=== PATIENT | female | born 1950 | race Caucasian/White ===

== ENCOUNTER 2023-08-07 11:35 | Emergency (ER) | payer MEDICARE, SELFPAY ==
[2023-08-07] VITALS (12 sets, daily range): BP systolic 129–163; BP diastolic 83–105; PULSE 76–108; RESP 22; TEMP 36.9; O2SAT 93–98; BMI 27.0
--- NOTE | 2023-08-07 12:01 | CRLHL7_ITS ---
For Patients: As a result of the Cures Act, medical imaging exams and procedure reports are released immediately into your electronic medical record. You may view this report before your referring provider. If you have questions, please contact your health care provider. INDICATION: COUGH, WHEEZE TECHNIQUE: Chest 2 views COMPARISON: None FINDINGS: Lung volumes are increased. Mild thickening of the bronchial trin[place]. No infiltrate. Cardiac silhouette is upper limits of normal. No fracture. No pleural effusion. No pneumothorax. IMPRESSION: Bilateral bronchiolitis and air trapping. Dictated by Gordon Torres MD @ 08/07/2023 12:47:09 PM (Electronically Signed)
--- NOTE | 2023-08-07 12:06 | ED_ITS ---
HPI - SOB/Dyspnea General Date Seen: 08/07/23 Chief Complaint: Shortness of Breath/Dyspnea Stated Complaint: Short of breath Time Seen by Provider: 08/07/23 11:41 Source: patient and family Mode of arrival: ambulatory Limitations: no limitations History of Present Illness HPI Narrative: Patient is a 73-year-old female presents here for evaluation after 1st being at the clinic, she was found to be 87% on room air, she has had of sickness for approximately 1 week, of shortness of breath increased use of her inhalers and increasing cough. No greenish mucus, denies fevers or chills and she had a negative COVID test she did at home yesterday she describes history of COPD exacerbations of last 1 being in December of last year she is not on chronic oxygen, no history of any cardiac issues, no history of previous blood clots, Here today with her son. MD elicited complaint: shortness of breath and cough Pertinent past history: COPD Onset (ago): week(s) Timing: constant and progressively worsening Severity: moderate Exacerbating factors: lying flat, movement and talking Relieving factors: rest and bronchodilators Known history of: COPD Associated symptoms: denies other symptoms Treatment prior to arrival: oxygen Related Data Home oxygen amount: none Home Medications Medication Instructions Recorded Confirmed cholecalciferol (vitamin D3) 25 1,000 unit PO DAILY 08/07/23 08/07/23 mcg (1,000 unit) capsule hydroxychloroquine 200 mg tablet 200 mg PO DAILY 08/07/23 08/07/23 levothyroxine 88 mcg tablet 88 mcg PO QAM 08/07/23 08/07/23 methotrexate sodium 2.5 mg tablet 10 mg PO 2XW 08/07/23 08/07/23 nicotine 14 mg/24 hr daily 1 patch transdermal DAILY 08/07/23 08/07/23 transdermal patch (Nicoderm CQ) rosuvastatin 10 mg tablet 10 mg PO QPM 08/07/23 08/07/23 Previous Rx's Medication Instructions Recorded azithromycin 250 mg tablet See Rx Instructions PO .COMPLEX #6 08/07/23 (Zithromax Z-Rishi) tabs cefuroxime axetil 500 mg tablet 500 mg PO BID 10 days #20 tabs 08/07/23 ipratropium 0.5 mg-albuterol 3 mg 3 ml inhalation TID PRN #90 mL 08/07/23 (2.5 mg base)/3 mL nebulization soln prednisone 20 mg tablet 20 mg PO BID #10 tabs 08/07/23 Allergies Allergy/AdvReac Type Severity Reaction Status Date / Time dexamethasone [From Maxitrol] Allergy Mild red, Verified 08/07/23 11:55 puffy, itchy eyes lidocaine Allergy Mild Rash Verified 08/07/23 11:55 neomycin [From Maxitrol] Allergy Mild red, Verified 08/07/23 11:55 puffy, itchy eyes polymyxin B [From Maxitrol] Allergy Mild red, Verified 08/07/23 11:55 puffy, itchy eyes Sulfa (Sulfonamide Allergy Mild Hives Verified 08/07/23 11:55 Antibiotics) Review of Systems Status of ROS: Reports: 10 or more systems reviewed and unremarkable except as noted in History and below [facility] Social History Smoking Status: Current every day smoker What tobacco products do you use: cigarettes Smoking packs per day: 0.5 Smoking cigarettes per day: 10.0 Do you use any of these nicotine containing products: None How often do you have a drink containing alcohol: 2-3 times a week How many standard drinks containing alcohol do you have on a typical day: 3 or 4 How often do you have six or more drinks on one occasion: Weekly AUDIT-C Alcohol total score: 7 Non-prescribed substance use: denies use service: No Exam Narrative: Exam Narrative: Patient is seen and stabilization room 1, she is on 2 L at 97%, she is here with her son, she is speaking to me in full sentences, her pupils equal round reactive to light, there is no scleral icterus redness, oropharynx is normal, JVP is flat, carotid upstrokes are equal bilaterally there is no meningismus, cranial nerves 3-12 are normal. Her chest has notable wheezing throughout both expiration primarily, little bit of inspiration with occasional crackles in the bases right greater than left. There is no signs of respiratory distress I can see. Heart sounds are distant faint but S1-S2 was normal, there is no S3-S4 clicks murmurs or gallops, her abdomen is soft and obese, there is no guarding, no organomegaly, bowel sounds are normal, CV a tenderness is absent, there is no swelling of her legs bilaterally, her muscle bulk is normal, SLR is are negative, and no redness rashes noted. Neurologically intact in upper lower extremities moving them normally. Negative Homans sign, and normal muscle power. Const: Vital Signs, click to edit/add: Vital Signs - 24 hr 08/07/23 11:45 08/07/23 12:03 08/07/23 12:04 Temperature 98.5 F Pulse Rate 99 102 H Pulse Rate [Left P ulse Oximeter] 105 H Respiratory Rate 22 Blood Pressure 129/105 H Blood Pressure [Le ft Upper Arm] 157/103 H Pulse Oximetry 97 93 95 Oxygen Delivery Me thod Nasal Cannula Oxygen Flow Rate 08/07/23 12:28 08/07/23 12:36 08/07/23 12:37 Temperature Pulse Rate 97 108 H Pulse Rate [Left P ulse Oximeter] Respiratory Rate Blood Pressure 150/95 H Blood Pressure [Le ft Upper Arm] Pulse Oximetry 96 96 96 Oxygen Delivery Me thod Nasal Cannula Nasal Cannula Oxygen Flow Rate 1 1 08/07/23 13:00 08/07/23 13:02 08/07/23 13:03 Temperature Pulse Rate 82 76 82 Pulse Rate [Left P ulse Oximeter] Respiratory Rate Blood Pressure 163/94 H Blood Pressure [Le ft Upper Arm] Pulse Oximetry 97 96 95 Oxygen Delivery Me thod Nasal Cannula Nasal Cannula Room Air Oxygen Flow Rate 1 1 08/07/23 13:30 08/07/23 13:32 08/07/23 13:33 Temperature Pulse Rate 82 81 80 Pulse Rate [Left P ulse Oximeter] Respiratory Rate Blood Pressure 150/83 H Blood Pressure [Le ft Upper Arm] Pulse Oximetry 97 97 98 Oxygen Delivery Me thod Room Air Oxygen Flow Rate Documenting provider has reviewed patient's vital signs: yes Course Course ED Course: Discussed with the patient, of think this is a COPD exacerbation, her troponin is negative, she has a mildly elevated white count, in the setting of a negative D-dimer. Her chest x-ray did show no acute changes. Her oxygen saturations have maintained stable at 95% she responded very well to the DuoNeb. We will walker and see how she does, if she is able to do well with this then I think we can probably discharge her home. Vital Signs Vital signs: Initial Vital Signs Temperature 98.5 F 08/07/23 11:45 Temperature Source Temporal Artery Scan 08/07/23 11:45 Pulse Rate 105 H 08/07/23 11:45 Respiratory Rate 22 08/07/23 11:45 Blood Pressure 157/103 H 08/07/23 11:45 Blood Pressure Mean 121 H 08/07/23 11:45 Blood Pressure Position Sitting 08/07/23 11:45 Pulse Oximetry 97 08/07/23 11:45 Oxygen Delivery Method Nasal Cannula 08/07/23 11:45 Vital Signs Temperature 98.5 F 08/07/23 11:45 Pulse Rate 105 H 08/07/23 11:45 Respiratory Rate 22 08/07/23 11:45 Blood Pressure 157/103 H 08/07/23 11:45 Pulse Oximetry 97 08/07/23 11:45 Oxygen Delivery Method Nasal Cannula 08/07/23 11:45 Temperature 98.5 F 08/07/23 11:45 Pulse Rate 80 08/07/23 13:33 Respiratory Rate 22 08/07/23 11:45 Blood Pressure 150/83 H 08/07/23 13:32 Pulse Oximetry 98 08/07/23 13:33 Oxygen Delivery Method Room Air 08/07/23 13:33 Oxygen Flow Rate 1 08/07/23 13:02 MDM - SOB/Dyspnea MDM Narrative Medical decision making narrative: Life-threatening differential diagnosis includes occluded COPD exacerbation, pulmonary edema, acute coronary syndromes, pulmonary embolism, pneumonia, and pneumothorax. Other differential diagnosis considerations include asthma, bronchitis as well as other etiologies Differential Diagnosis Differential diagnosis: Likely acute exacerbation of chronic obstructive airways disease, congestive heart failure, asthma with exacerbation and pulmonary embolism Medical Records Attestation: I reviewed the patient's medical records. Lab Data Attestation: I reviewed the patient's lab results. Labs: Lab Results 08/07/23 08/07/23 08/07/23 Range/Units 11:55 12:02 12:12 WBC 13.32 H (4.50-11.00) K/uL RBC 4.53 (4.00-5.20) m/uL Hgb 15.1 (12.0-16.0) gm/dL Hct 44.7 (33.0-51.0) % MCV 99 (80-100) fL MCH 33 (26-34) pg MCHC 34 (32-36) gm/dL RDW Coeff of Kathya 15.8 H (11.5-15.5) % Plt Count 271 (140-440) K/uL Neut % (Auto) 80.2 H (42.0-72.0) % Lymph % (Auto) 11.1 L (20-44) % [place] % (Auto) 7.7 (0.0-11.0) % Eos % (Auto) 0.5 (0.0-7.0) % Baso % (Auto) 0.2 (0.0-3.0) % Neut # (Auto) 10.70 H (1.7-7.0) K/uL Lymph # (Auto) 1.50 (0.90-2.90) K/uL [place] # (Auto) 1.00 H (0.00-0.90) K/UL Eos # (Auto) 0.10 (0.00-0.50) K/uL Baso # (Auto) 0.00 (0.00-0.30) K/uL Abs Immat Gran (auto) 0.00 (0.00-0.30) K/uL Imm/Tot Granulo (auto) 0.3 % INR 0.95 (0.91-1.10) APTT 27 (23-33) Seconds D-Dimer Quant (PE/DVT) 0.47 (0.00-0.50) ug/ml Sodium 138 (135-149) mmol/L Potassium 4.2 (3.6-5.1) mmol/L Chloride 104 (96-114) mmol/L Carbon Dioxide 27 (20-32) mmol/L Anion Gap 7 (7-15) mEq/L BUN 9 (7-30) mg/dL Creatinine 0.6 (0.5-1.5) mg/dL Estimated Creat Clear 46.20 Estimated GFR 94 ml/min Glucose 91 (60-115) mg/dL Calcium 10.2 (8.4-10.6) mg/dL C-Reactive Protein 1.6 H (0.5-1.0) mg/dL NT-Pro-B Natriuret Pep 225 pg/mL SARS-CoV-2 (PCR) Negative SARS-CoV-2 (Negative) Influenza Type A (PCR) Negative PCR FLU A (Negative) Influenza Type B (PCR) Negative PCR FLU B (Negative) RSV (PCR) Negative PCR RSV (Negative) POC Troponin I 0.00 L (0.01-0.04) ng/ml Imaging Data Chest x-ray: Attestation: I have reviewed the pertinent imaging results. My impression: Negative chest x-ray no acute changes Radiologist's impression: Patient: ALISON SENDER Facility: [facility] Site . Site : 1950 Study: XRay Chest 2 VIEW-08/07/2023 12:36:05 PM Ordering Physician: Trinh Partida Final Report: INDICATION: COUGH, WHEEZE TECHNIQUE: Chest 2 views COMPARISON: None FINDINGS: Lung volumes are increased. Mild thickening of the bronchial [place]in[place]. No infiltrate. Cardiac silhouette is upper limits of normal. No fracture. No pleural effusion. No pneumothorax. IMPRESSION: Bilateral bronchiolitis and air trapping. Dictated by Gordon Torres MD @ 08/07/2023 12:47:09 PM (Electronic Signature) ECG Data Attestation: I personally reviewed and interpreted this ECG as follows: ECG interpretation date: 08/07/23 Prior ECG tracings: not available for review Interpretation: EKG shows occasional PVCs, no acute ST wave changes, ventricular rate 98 Discharge Plan Discharge Clinical Impression: Acute infective exacerbation of chronic obstructive airway disease Patient Disposition: Home w/ Parent or Adult Condition: Improved Instructions: COPD (Chronic Obstructive Pulmonary Disease) (DC), Chronic Bronchitis (DC), How to Use a Nebulizer (DC), Wheezing (ED) Additional Instructions: Discharge home, medications as directed. Increasing chest pain or shortness of breath then you should be re-evaluated either in the emergency room or with her primary care physician. I do think you need to be followed up in 3-5 days for recheck. Stop your hydroxyChloroquine while on the zithromax, and restart it 2 days after done. Activity Level: Light activity Prescriptions: New azithromycin [Zithromax Z-Rishi] 250 mg tablet See Rx Instructions .ROUTE .COMPLEX Qty: 6 0RF Rx Instructions: For 250 mg dose pack: take 500 mg today (day 1), then 250 mg for 4 days (days 2-5), please have her stop the hyrdoxychloroquine while on this. Restart 3 days after finishing prednisone 20 mg tablet 20 mg PO BID Qty: 10 0RF ipratropium-albuterol 0.5 mg-3 mg(2.5 mg base)/3 mL solution for nebulization 3 ml inhalation TID PRNQty: 90 2RF cefuroxime axetil 500 mg tablet 500 mg PO BID 10 Days Qty: 20 0RF No Action levothyroxine 88 mcg tablet 88 mcg PO QAM methotrexate sodium 2.5 mg tablet 10 mg PO 2XW hydroxychloroquine 200 mg tablet 200 mg PO DAILY rosuvastatin 10 mg tablet 10 mg PO QPM nicotine [Nicoderm CQ] 14 mg/24 hr patch 24 hour 1 patch transdermal DAILY cholecalciferol (vitamin D3) 25 mcg (1,000 unit) capsule 1,000 unit PO DAILY Follow Up/Referrals: Sandra Barragan DO [Primary Care Provider] - Stand Alone Forms: [facility] Info Instructions
--- OUTSIDE RECORDS SUMMARY | 2023-08-07 12:19 | XMS_ITS | Continuity of Care Document ---
Author Name Unknown Organization Z [facility] Address [address] [place] [address] Phone Care Team Providers Care Manager Hospice Name Role Phone Mihaela Ross MD Unavailable Unavailable Procedures Procedure Date Office/outpatient visit,est, low 2009 Office consultation, moderate 0 X-ray exam lwr spine, min 4 views Advance Directives Directive Yes / No Effective Date File Name No Information Encounters Encounter Description Practice Location Reason(s) For Visit Diagnoses Date Provider Providers Copied on Encounter Office/outpat ient visit,est, low [facility] [place], [address] [place] [address], [facility], tel:[phone] [employer] No Information Cody Chairez. [facility], [address] [place] [address] [address], [place], [place], [id number] , [place]. tel:[phone] Referring Provider: Nevaeh Mcmanus, [facility], [place], [address] . tel:[phone] Office consultation, moderate Z [facility] [place], [address] [place], [place] [address]ite [facility], [place], [address], [place] tel:[phone] [employer] No Information Cody Chairez. [facility], [address] [facility], [place], [place], [id number] , [place]. tel:[phone] Referring Provider: Nevaeh Mcmanus, [facility] [place] [address], [address] . tel:[phone] Family History Family Member Type Diagnosis Age At Onset No Information Payers Payer name Insurance type Covered democrat ID Mai yadav(s) [facility] [id number] Social History Type Description Quantity Date Captured Comments Sex Female Smoking Status No Information Vital Signs Date / Time: Height Weight BMI Pulse Rate Blood Pressure Temperature Respiratory Rate Body Surface Area Head Circumference Head Circ. Percentile Wt./Ricki. Percentile BMI percentile Pulse Ox Inhaled Ox 66.10 in 81.700 kg (180.20 lbs) 10:24 AM 66.30 in 83.100 kg (182.80 lbs) 29.3 4 kg/m eter (2) Chief Complaint And Reason For Visit No Information Reason For Referral Reason For Referral No Information History Of Present Illness Encounter Date Complaint History Of Prese nt Illness No Information Functional Status Date Functional Assessmen t No Information Instructions Date Instruction Additional Infor mation No Information Assessments Type Assessment Date No Information Patient Care Teams Name Effective Dates (start - stop) Status Members No Information
--- OUTSIDE RECORDS SUMMARY | 2023-08-07 12:20 | XMS_ITS | Continuity of Care Document ---
Author Name Unknown Organization Z [facility] Address [address] [place] [address] Phone Care Team Providers Care Customer Account Administrator Name Role Phone Mihaela Ross MD Unavailable Unavailable Procedures Procedure Date Office/outpatient visit,est, low 2009 Office consultation, moderate 0 X-ray exam lwr spine, min 4 views Advance Directives Directive Yes / No Effective Date File Name No Information Encounters Encounter Description Practice Location Reason(s) For Visit Diagnoses Date Provider Providers Copied on Encounter Office/outpat ient visit,est, low [facility] [place], [address] [place] [address], [facility], tel:[phone] [employer] No Information Cody Chairez. [facility], [address] [place] [address] [address], [place], [place], [id number] , [place]. tel:[phone] Referring Provider: Nevaeh Mcmanus, [facility] [address], [place], [address] . tel:[phone] Office consultation, moderate Z [facility], [address] [place], [place] [address]ite [facility], [place], [address], [place] tel:[phone] [employer] No Information Cody Chairez. [facility], [address] [facility], [place], [place], [id number] , [place]. tel:[phone] Referring Provider: Nevaeh Mcmanus, [facility] [place] [address], [address] . tel:[phone] Family History Family Member Type Diagnosis Age At Onset No Information Payers Payer name Insurance type Covered libertarian ID Mai yadav(s) [facility] [id number] Social History Type Description Quantity Date Captured [...]
[2023-08-07 12:31] LABS: Basophils Percent Auto 0.2 % (0.0-3.0); Eosinophils Percent Auto 0.5 % (0.0-7.0); Hematocrit 44.7 % (33.0-51.0); Hemoglobin* 15.1 gm/dL (12.0-16.0); Immature Granulocytes Pct Auto 0.3 %; Lymphocytes Percent Auto 11.1 % (20-44); Mean Corpuscular HGB Conc 34 gm/dL (32-36); Mean Corpuscular Hemoglobin 33 pg (26-34); Mean Corpuscular Volume 99 fL (80-100); Monocytes Percent Auto 7.7 % (0.0-11.0); Neutrophils Percent Auto 80.2 % (42.0-72.0); Platelet Count* 271 K/uL (140-440); RDW Coefficient of Variation % 15.8 % (11.5-15.5); Red Blood Count 4.53 m/uL (4.00-5.20); White Blood Count* 13.32 K/uL (4.50-11.00)
[2023-08-07 12:38] LABS: PCR FLU A Negative PCR FLU A (Negative); PCR FLU B Negative PCR FLU B (Negative); PCR RSV Negative PCR RSV (Negative)
[2023-08-07 12:44] LABS: Slide Review Reflex No
[2023-08-07] MEDS: 0.9 % SODIUM CHLORIDE 1000 ml 1,000 ML IV (12:45)
[2023-08-07 12:47] LABS: Chloride* 104 mmol/L (96-114)
[2023-08-07 12:48] LABS: Potassium* 4.2 mmol/L (3.6-5.1); Sodium* 138 mmol/L (135-149)
[2023-08-07 12:50] LABS: Creatinine* 0.6 mg/dL (0.5-1.5); Estimated Glomerular Filt Rate 94 ml/min
[2023-08-07 12:51] LABS: Anion Gap 7 mEq/L (7-15); Blood Urea Nitrogen* 9 mg/dL (7-30); Carbon Dioxide* 27 mmol/L (20-32); Glucose* 91 mg/dL (60-115); INR 0.95 (0.91-1.10); Partial Thromboplastin Time* 27 Seconds (23-33); Prothrombin Time 13.3 Seconds
[2023-08-07 12:52] LABS: Calcium* 10.2 mg/dL (8.4-10.6)
[2023-08-07 12:53] LABS: C Reactive Protein* 1.6 mg/dL (0.5-1.0)
[2023-08-07 12:54] LABS: D Dimer Quantitative* 0.47 ug/ml (0.00-0.50)
[2023-08-07 13:06] LABS: SARS PCR* Negative SARS-CoV-2 (Negative)
[2023-08-07 13:08] LABS: NT Pro B Type NatriureticPept* 225 pg/mL
[2023-08-07] MEDS: IPRAT-ALBUT 0.5-2.5 MG/3 ML NEB 1 NEB IH (13:14)
== END 2023-08-07 14:55 | disposition home or self-care (01) ==
PROVIDERS: Emergency Provider Family Medicine; PCP Family Medicine
DX: J44.1 Chronic obstructive pulmonary disease with (acute) exacerbation (principal)
CPT/HCPCS: 36415; 71046; 80048; 83880; 84484; 85025; 85379; 85610; 85730; 86140; 87631; 93005; 94640; 94761; 99284; 99285; J7030

== ENCOUNTER 2024-03-26 09:25 | Outpatient (CLI) | payer MEDICARE, SELFPAY ==
--- OUTSIDE RECORDS SUMMARY | 2024-03-26 09:29 | XMS_ITS | Clinical Summary ---
Author Name Unknown Organization [employer] [facility] Address [place], [place] [address] Care Team Providers Care Law Enforcement Director Name Role Phone Pérez Black OD Unavailable [phone] Ni Juarez MD Unavailable [phone] Sandra Barragan DO Primary Care Provider Allergies Active Allergy Reactions Criticality Noted Date Comments Varenicline Mental Status Change 08/11/2023 Dexamethasone Itching Low 08/07/2023 Lidocaine Rash 06/08/2010 Neomycin-Polymyxin B-Dexameth Itching,Other - Describe In Comment Field 04/02/2012 Red, puffy, itchy eye from drops. Unlisted Allergen (Include Detail In Comments) *Unknown 08/14/2019 Tegaderm Film - patient gets welts in the area of patch Sulfa (Sulfonamide Antibiotics) Hives 01/17/2019 Medications Medication Sig Dispensed Refills Start Date End Date Status cholecalciferol (VITAMIN D) 1,000 unit tablet Take 1 tablet by mouth once daily. 0 12/28/2015 Active amoxicillin (AMOXIL) 500 mg capsule Dental appointments 09/11/2019 Active albuterol (PROVENTIL) 0.083 % neb solutionIndications :COPD exacerbation (HC) Inhale 3 mL (2.5 mg) via a nebulizer every 6 hours if needed for Cough 1st choice. 180 mL 04/28/2022 Active aspirin (ECOTRIN) 81 mg enteric coated tabletIndications:V ertebral artery stenosis, symptomatic, without infarction, bilateral Take 1 Tablet (81 mg) by mouth once daily with a meal. 0 07/11/2022 Active erythromycin ophthalmic ointment 0.5% APPLY SPARINGLY TO BOTH EYES AT BEDTIME NEEDED 08/24/2022 Active methotrexate (RHEUMATREX) 2.5 mg tabletIndications:P ain in joint, multiple sites TAKE 4 TABLETS BY MOUTH ON MONDAY AND 4 TABLETS ON MONDAY 96 Tablet 4 02/02/2023 Active levothyroxine (SYNTHROID) 88 mcg tabletIndications:H ypothyroidism (acquired) Take 1 Tablet (88 mcg) by mouth before breakfast. 90 Tablet 4 03/29/2023 Active folic acid 1 mg tabletIndications:P ain in joint, multiple sites Take 1 Tablet (1 mg) by mouth once daily. 90 Tablet 4 03/29/2023 Active hydrOXYchloroQUINE (PLAQUENIL) 200 mg tabletIndications:P ain in joint, multiple sites Take 1 Tablet (200 mg) by mouth once daily. 90 Tablet 4 03/29/2023 Active rosuvastatin (CRESTOR) 10 mg tabletIndications:V ertebral artery stenosis, symptomatic, without infarction, bilateral Take 1 Tablet (10 mg) by mouth at bedtime. 90 Tablet 4 03/29/2023 Active betamethasone dipropionate 0.05% (DIPROSONE 0.05% OINTMENT) 0.05 % ointmentIndications :Bug bite, initial encounter Apply topically to affected area(s) two times daily. 45 g 06/15/2023 Active albuterol-ipratropi um (DUONEB) (2.5-0.5 mg) in 3 mL NEBULIZATION solutionIndications :COPD with chronic bronchitis (HC) Inhale 3 mL via a nebulizer three times daily. 1080 mL 08/11/2023 Active clonazePAM (KLONOPIN) 0.5 mg tabletIndications:R estless legs syndrome (RLS),Fibromyalgia TAKE 2 TABLETS BY MOUTH EVERY DAY AT BEDTIME 60 Tablet 5 10/04/2023 Active amLODIPine (NORVASC) 5 mg tabletIndications:H TN (hypertension) Take 1 Tablet (5 mg) by mouth once daily. 90 Tablet 2 12/27/2023 Active escitalopram oxalate (LEXAPRO) 20 mg tabletIndications:P ersistent postural-perceptual dizziness Take 1 Tablet (20 mg) by mouth every morning. 90 Tablet 3 2024 Active fluticasone furoate-vilanteroL (Breo Ellipta) 100-25 mcg/dose inhalerIndications: COPD with chronic bronchitis (HC) INHALE ONE PUFF BY MOUTH EVERY DAY 180 Each 02/19/2024 Active gabapentin (NEURONTIN) 300 mg capsuleIndications: Lumbar radiculopathy Take 1 Capsule (300 mg) by mouth at bedtime. 30 Capsule 2 03/13/2024 Active mupirocin (BACTROBAN OINTMENT) ointmentIndications :Impetigo Apply topically to affected area(s) three times daily. 15 g 03/18/2024 Active Active Problems Problem Noted Date Diagnosed Date Vertebral artery stenosis, s ymptomatic, without infarction, bilateral 07/11/2022 Hyperlipidemia LDL goal <70 07/11/2022 Pseudophakia, right eye 08/08/2016 Hyperopia of both eyes with astigmatism and pres byopia 08/08/2016 Nuclear senile cataract of left eye 03/31/2015 Controlled substance agreement signed 01/09/2014 Degenerative disc disease, lumbar 09/26/2010 Chronic low back pain 09/26/2010 Encounter for long-term (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 other m edications 02/12/2010 Nummular eczema 03/24/2009 Thyroid nodule 12/19/2008 seronegative polyarthralgia/ mixed connective tissue disorder 09/30/2008 Overview: Previously diagnosis with lupus, At [place] December 2007 changed diagnosis Fibromyalgia 07/22/2008 Unspecified essential hypertension 06/28/2007 Tobacco use disorder 06/28/2007 Restless legs syndrome (RLS) 03/01/2007 Benign neoplasm of colon 03/01/2007 Overview: Colonoscopy 04/2019 polyps, repeat in 5 years Resolved Problems Problem Noted Date Diagnosed Date Resolved Date 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 09/24/2012 01/02/2013 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 04/07/2009 03/07/2018 Fibromyalgia 08/04/2008 08/18/2008 Lupus erythematosus 03/01/2007 09/30/20 08 Overview: 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 Presbyopia 05/31/2006 08/08/2016 Myopia 05/31/2006 02/17/2012 Encounters Date Type Department Care Team Description 03/18/2024 3:30 PM CDT Office Visit [facility] [address] [place] [address] Sandra Barragan DO Suture Removal (remove sutures and look at lip) 03/18/2024 Travel 03/13/2024 1:20 PM CDT Office Visit [facility] [address] [facility] [place] [address] Claude Méndez MD Musculoskeletal Problem (Lower middle of the back pain started a long time ago. just flared up in December ) 03/13/2024 Travel 03/07/2024 11:10 AM CDT Office Visit [address] [place] [phone] Mary Porter PA Mouth/Lip Problem; Fall (fall at 8 PM in bathroom) 03/07/2024 Travel 02/19/2024 [facility]ill [place] [address] [facility] [place] [address] Sandra Barragan DO Refill Request (Breo Ellipta) 02/10/2024 Orders Only [facility] [address] [place] [address] Sandra Barragan DO <No scans attached> 02/08/2024 2:00 PM CDT Ancillary Procedure [facility] [place] [address] 02/08/2024 Travel 2024 11:05 AM CIGARETTE CATCHER Office Visit [facility] [address] [place] [address] Sandra Barragan DO Back Pain (physical therapist suggested to see pcp); Dizziness (PPD) 2024 Travel 01/18/2024 Refill [facility] [place] [address] Sandra Barragan DO Refill Request (Breo Ellipta) 01/15/2024 10:38 AM CIGARETTE CATCHER - 01/15/2024 11:59 PM CIGARETTE CATCHER Hospital Encounter [facility] [place] [address] [facility] [place] [address] Filemon Marshall MD Smith, Ryan K, PT 01/15/2024 Travel 01/09/2024 10:20 AM CIGARETTE CATCHER - 01/09/2024 11:59 PM CIGARETTE CATCHER Hospital Encounter [facility] [address] [facility] [place] [address] Filemon Marshall MD Smith, Ryan K, PT 01/09/2024 Travel 01/02/2024 9:36 AM CIGARETTE CATCHER - 01/02/2024 11:59 PM CIGARETTE CATCHER [facility] [address] [facility] [place] [address] Filemon Marshall MD Smith, Ryan K, PT 01/02/2024 Travel 12/28/2023 10:36 AM CIGARETTE CATCHER - 12/28/2023 11:59 PM CIGARETTE CATCHER Hospital Encounter [facility] [id number] [place] [address], [place] [address] Filemon Marshall MD Smith, Ryan K, PT 12/27/2023 1:25 PM CIGARETTE CATCHER Office Visit [address] [address] Sandra Barragan, DO Medication Management 12/27/2023 Travel from Last 3 Months Immunizations Name Administration Dates Next Due Amb Influenza, Inact (High-d ose) (Flu Clinic Only) 08/21/2015,08/12/2014 COVID-19 vaccine (Pfizer-Bio NTech 30mcg/0.3mL) 12YO+ BIVALENT PF, MDV 08/10/2022 COVID-19 vaccine ([employer]-Bio NTech 30mcg/0.3mL) 12YO+ LUI-SUCROSE PF, MDV 06/08/2022 COVID-19 vaccine ([employer]-Bio NTech 30mcg/0.3mL) PF, MDV 09/20/2021,02/12/2021,01/22/2021 Influenza A (H1N1), Inactiva merritt (Age >=3 Years) 12/18/2009 Influenza Virus, Unspecified 08/09/2010 Influenza, High-dose Inactivated 08/08/2016 Influenza, IIV3 (Age >=3 years) 09/09/20 13,08/08/2012,08/15/2011,2009,07/29/2009,09/30/2004 Influenza, IIV4 (Age 6-35 Mos) 09/09/2013 Influenza, Inactivated AIIV4 (Age 65+ Years) Preserv Free 08/10/2022,08/31/2021,07/28/2020 Influenza, Inactivated IIV3 (Age 65+ Years) Preserv Free 08/26/2019,08/13/2018,08/28/2017 Pneumococcal Poly,23-Valent (Pneumovax) 12/28/2015,10/25/2000 Pneumococcal conj 13-Valent (Prevnar 13) 12/26/2014 Td (Age >=7 Years) 11/20/1996 Tdap 06/18/2018,07/11/2007 Family History Medical History Relation Name Comments Other Father d72, [place] Other Mother d76, durin g heart valve surgery Other Sister 2 MS Anesthesia Malignant Hyperthermia No Family History Blood Disease No Family History Cancer-breast No Family History Cancer-ovarian No Family History Relation Name Status Comments Father Mother Sister 1 Alive Sister 2 Social History Tobacco Use Types Packs/Day Years Used Date Smoking Tobacco: Every Day Cigarettes 0.5 56.9 Started: [birth year]/19/1967 Smokeless Tobacco: Never Tobacco Cessation:Ready to Q uit: No; Counseling Given: No Alcohol Use Standard Drinks/Week Comments Yes 7 (1 standard drink = 0.6 oz pur e alcohol) 1 cocktail nightly PHQ-2 Answer Date Recorded PHQ-2 TOTAL SCORE 0 03/29/2023 Social Connections Answer Date Recorded Frequency of Communication with Friends and Fami ly 0 07/10/2023 Alcohol Use Answer Date Recorded How often do you have a drink containing alcohol ? 4 04/28/2022 How many drinks containing a lcohol do you have on a typical day when you are drinking? 0 04/28/2022 How often do you have five or more drinks on one occasion? 0 04/28/2022 Financial Resource Strain Answer Date R ecorded Difficulty of Paying Living Expenses 3 07/10/2023 Difficulty of Paying Living Expenses Not on file 07/10/2023 Food Insecurity Answer Date Recorded Worried About Running Out of Food in the Last Ye ar 1 07/10/2023 Transportation Needs Answer Date Record ed Lack of Transportation (Medical) 1 07/10/2023 Housing Stability Answer Date Recorded Unable to Pay for Housing in the Last Year 1 07/10/2023 Sex and Gender Information Value Date Recorded Sex Assigned at Not on file Gender Identity Not on file Sexual Orientation Not on file Obstetrics History Para Term AB IAB SAB Ectopic Multiple Livin g Live Births 2 2 2 0 0 0 0 0 2 Date Outcome GA Total Labor Labor/2nd/3rd Weight Sex Delivery Anes PTL Keke A1 A5 Name Cl in Term Term Last Filed Vital Signs Vital Sign Reading Time Taken Comments Blood Pressure 142/81 03/18/2024 3:37 PM CDT Pulse 78 03/18/2024 3:37 PM CDT Temperature 36.8 ??C (98.2 ??F) 03/13/2024 1:20 PM CD T Respiratory Rate 20 03/07/2024 11:19 AM CDT Oxygen Saturation 97% 03/18/2024 3:37 PM CDT Inhaled Oxygen Concentration - - Weight 75.6 kg (166 lb 9.6 oz) 03/18/2024 3:37 P M CDT Height 167.6 cm (5' 6) 03/29/2023 11:14 AM CDT Body Mass Index 26.89 03/29/2023 11:14 AM CDT Plan of Treatment Upcoming Encounters Date Type Department Care Team (Late st Contact Info) Description 03/26/2024 10:00 AM CDT Office Visit [facility] at [address] [place] [facility] [place] [phone] Claude Méndez MD [address] [place] [address] Arrived 04/19/2024 9:00 AM CDT Orders Only [facility] [address] [address] [facility] [address] Lab, Farm 04/26/2024 10:40 AM CDT Ancillary Procedure [facility] [address] [place] [address] 05/08/2024 8:35 AM CDT Office Visit [facility] [address] [place] [address] Sandra Barragan DO [address] [place] [address] 05/22/2024 10:20 AM CDT Office Visit [facility] [address] [place] [address] Claude Méndez MD [address] [place] [address] Health Maintenance Due Date Last Done Comments Zoster (shingles) series for age 50+ (1 of 2) 01/25/1968 COVID-19 vaccine series (2022- season) 2023 09/25/2023, 08/10/2022, 06/08/2022, Additional history exists BMI (ht and wt on same day) for age 18+ 03/29/2024 03/29/2023, 09/20/2021, 09/23/2020, Additional history exists Depression screening for age 12+ 03/29/2024 03/29/2023, 09/21/2021, 09/20/2021, Additional history exists Medicare Wellness for age 65+ 03/29/2024, 09/20/2021, 06/22/2020, Additional history exists Colonoscopy through age 75 05/07/2024 05/07/2019, Low Dose CT (for lung CA) ag e 50-80 06/07/2024 06/07/2023, 05/13/2022, 05/16/2007, Additional history exists Influenza for age 65+ 07/21/2024 08/10/2022 , 08/31/2021, 07/28/2020, Additional history exists Tetanus booster 06/18/2028 06/18/2018, 06/21, 11/20/1996 Lipids for age 45-75 01/23/2029 2024, 03/29/2023, 10/11/2022, Additional history exists Hepatitis C screening for ag e 18-79 Completed 12/28/2015 Pneumococcal series for age 65+ Completed 12/28/2015, 12/26/2014, 10/25/2000 DEXA/DXA scan for age 65+ Completed 2017, 02/24/2015, 01/29/2013 Tdap Completed 06/18/2018, 07/11/2007 Medical Devices Implanted Type Area Class B Truck Driver Device Identifier Shelf Expiration Date Model / Serial / Lot Lens Iol 21.0 Wf [id number]. 0 - [id number] Implanted:Qty: 1 on 06/22/2015 by Atilio Mendoza MD at [facility] Right: Eye [employer] 03/19/2020 [id number]. [id number] / [id number] / Procedures Procedure Name Priority Date/Time Associated Diagnosis Comments AMB EPIDURAL STEROID INJECTION Routine 03/26/2024 8:07 AM CDT Lumbar foraminal stenosis Degenerative disc disease, lumbar Lumbar facet arthropathy MR SPINE LUMBAR WO Routine 02/08/2024 2: 49 PM CDT Chronic midline low back pain with bilateral sciatica Degenerative disc disease, lumbar CBC WITH AUTO DIFFERENTIAL Routine 2024 11:49 AM CIGARETTE CATCHER Encounter for medication monitoring TSH Routine 2024 11:49 AM CIGARETTE CATCHER Hypothyroidism (acquired) C-REACTIVE PROTEIN Routine 2024 11 :49 AM CIGARETTE CATCHER seronegative polyarthralgia/ mixed connective tissue disorder SEDIMENTATION RATE Routine 2024 11 :49 AM CIGARETTE CATCHER seronegative polyarthralgia/ mixed connective tissue disorder VITAMIN D 25 (DEFICIENCY) Routine 2024 11:49 AM CIGARETTE CATCHER Vitamin D deficiency ALT (SGPT) Routine 2024 11:49 AM CIGARETTE CATCHER Encounter for medication monitoring CBC WITH AUTO DIFFERENTIAL Routine 2024 11:49 AM CIGARETTE CATCHER Encounter for medication monitoring BASIC METABOLIC PANEL Routine 2024 11:49 AM CIGARETTE CATCHER HTN (hypertension) LIPID PANEL W REFLEX MEASURED LDL Routine 2024 11:49 AM CIGARETTE CATCHER Screening cholesterol level CT CHEST SCREENING LOW DOSE WO CONTRAST Routine 06/07/2023 10:17 AM CDT Encounter for screening for lung cancer Smoker COLONOSCOPY 05/07/2019 8:00 AM CDT XR DXA BONE DENSITY 1 SITE AXIAL AND 1 SITE PERIPHERAL Routine 03/07/2018 2:39 PM CDT Post-menopausal ANTI HCV Routine 12/28/2015 11:44 AM CIGARETTE CATCHER Need for hepatitis C screening test from Last 3 Months or Most Recently Relevant to Health Maintenance Results * MR SPINE LUMBAR WO (02/08/2024 2:49 PM CDT) Anatomical Region Laterality Modality Spine, LUMBAR SPINE Magnetic Res onance 02/09/2024 9:22 AM CDT Narrative 02/09/2024 9:22 AM CDT For Patients: ??As a result of the Century Cures Act, medical imaging exams and procedure reports are released immediately into your electronic medical record. ??You may view this report before your referring provider. ??If you have questions, please contact your health care provider. Indication: Chronic midline low back pain with bilateral sciatica. Technique: Noncontrast sagittal and axial T1, T2, and sagittal STIR sequences are provided. Comparison: 09/21/2020 Findings: Exaggeration of lumbar lordosis. Levocurvature with apex at L2-3. Retrolisthesis at L2-3, L3-4 and L4-5 levels. Anterior osteophytic spurring at L1-2 through L4-5, as well as T11-12. Modic type 1 degenerative changes at L3-4 and L5-S1. Modic type 2 degenerative changes at T11-12, L1-2, L2-3, L3-4 and L5-S1 levels. Small Schmorl`s node in the L5 inferior endplate. The conus medullaris is normal in signal and location. Artifact from bilateral hip prostheses. T12-L1: Normal disc and facet joints. No significant spinal canal stenosis or neural foramen narrowing. L1-2: Mild disc bulge indents the ventral thecal sac. No significant spinal canal stenosis or neural foramen narrowing. L2-3: Mild disc bulge indents the thecal sac. Mild narrowing of the right neural foramen inferior recess. No left neural foramen narrowing. L3-4: Disc bulge. Mild narrowing of the right neural foramen inferior recess. No left neural foramen narrowing. No significant spinal canal stenosis. L4-5: Disc bulge eccentric to left. Small left subarticular disc extrusion with 8 mm of cephalad migration. Mild right neural foramen narrowing. No left neural foramen narrowing. L5-S1: Uncovertebral joint hypertrophy. Advanced right and moderate left facet arthrosis. Mild left neural foramen narrowing. No right neural foramen narrowing. Impression: 1. No acute osseous or ligamentous abnormality. Levocurvature with the apex at L2-3. Retrolisthesis at L2-3 through L4-5. 2. Multilevel low-grade spinal canal narrowing. A small left paracentral disc extrusion at L4-5 demonstrates cephalad migration without significant spinal canal stenosis. Facet arthrosis is most prominent at L5-S1. 3. No intradural pathology. No evidence of discitis or osteomyelitis. Dictated by Gordon Esteban MD @ 02/09/2024 9:22:15 AM (Electronically Signed) Procedure Note Gordon Esteban MD - 02/09/2024 For Patients: As a result of the Cures Act, medical imagingexams and procedure reports are released immediately into your electronicmedical record. You may view this report before your referring provider.If you have questions, please contact your health care provider. Indication: Chronic midline low back pain with bilateral sciatica. Technique: Noncontrast sagittal and axial T1, T2, and sagittal STIR sequences areprovided. Comparison: 09/21/2020 Findings: Exaggeration of lumbar lordosis. Levocurvature with apex at L2-3.Retrolisthesis at L2-3, L3-4 and L4-5 levels. Anterior osteophyticspurring at L1-2 through L4-5, as well as T11-12. Modic type 1degenerative changes at L3-4 and L5-S1. Modic type 2 degenerative changesat T11-12, L1-2, L2-3, L3-4 and L5-S1 levels. Small Schmorl`s node in theL5 inferior endplate. The conus medullaris is normal in signal andlocation. Artifact from bilateral hip prostheses. T12-L1: Normal disc and facet joints. No significant spinal canal stenosisor neural foramen narrowing. L1-2: Mild disc bulge indents the ventral thecal sac. No significantspinal canal stenosis or neural foramen narrowing. L2-3: Mild disc bulge indents the thecal sac. Mild narrowing of the rightneural foramen inferior recess. No left neural foramen narrowing. L3-4: Disc bulge. Mild narrowing of the right neural foramen inferiorrecess. No left neural foramen narrowing. No significant spinal canalstenosis. L4-5: Disc bulge eccentric to left. Small left subarticular disc extrusionwith 8 mm of cephalad migration. Mild right neural foramen narrowing. Noleft neural foramen narrowing. L5-S1: Uncovertebral joint hypertrophy. Advanced right and moderate leftfacet arthrosis. Mild left neural foramen narrowing. No right neuralforamen narrowing. Impression: 1. No acute osseous or ligamentous abnormality. Levocurvature with theapex at L2-3. Retrolisthesis at L2-3 through L4-5. 2. Multilevel low-grade spinal canal narrowing. A small left paracentraldisc extrusion at L4-5 demonstrates cephalad migration without significantspinal canal stenosis. Facet arthrosis is most prominent at L5-S1. 3. No intradural pathology. No evidence of discitis or osteomyelitis. Dictated by Gordon Esteban MD @ 02/09/2024 9:22:15 AM (Electronically Signed) Sandra Barragan DO MR * SEDIMENTATION RATE (2024 11:49 AM CIGARETTE CATCHER) SEDIMENTATION RATE 5 <30 mm/hr 2023 9:30 PM CIGARETTE CATCHER [facility] Blood BLOOD SPECIMEN / Unknown Venipuncture / Unknown 2024 11:49 AM CIGARETTE CATCHER 2024 11:50 AM CIGARETTE CATCHER Sandra Barragan DO HEMATOLOGY [facility] [address] [place] [id number], * (ABNORMAL) CBC WITH AUTO DIFFERENTIAL (2024 11:49 AM [facility] WHITE BLOOD COUNT 6.3 4.5 - 11.0 thou/cu mm 2024 12:01 PM [facility] RED BLOOD COUNT 4.38 4.00 - 5.20 mil/cu mm 2024 12:01 PM [facility] HEMOGLOBIN 15.8 12.0 - 16.0 g/dL 2024 12:01 PM [facility] HEMATOCRIT 45.4 33.0 - 51.0 % 2024 12:01 PM [facility] MCV 104(H) 80 - 100 fL 2024 12:01 PM [facility] MCH 36.1(H) 26.0 - 34.0 pg 2024 12:01 PM [facility] MCHC 34.8 32.0 - 36.0 g/dL 2024 12:01 PM [facility] RDW 15.9(H) 11.5 - 15.5 % 2024 12:01 PM [facility] PLATELET COUNT 258 140 - 440 thou/cu mm 2024 12:01 PM [facility] MPV 9.6 6.5 - 11.0 fL 2024 12:01 PM [facility] % NEUT 62.0 % 2024 12:01 PM [facility] % LYMPH 24.6 % 2024 12:01 PM [facility] % MONO 10.7 % 2024 12:01 PM [facility] % EOS 2.1 % 2024 12:01 PM [facility] % BASO 0.6 % 2024 12:01 PM [facility] ABSOLUTE NEUTROPHILS 3.9 1.7 - 7.0 thou/cu mm 2024 12:01 PM CIGARETTE CATCHER [facility] ABSOLUTE LYMPHOCYTES 1.6 0.9 - 2.9 thou/cu mm 2024 12:01 PM CIGARETTE CATCHER [facility] ABSOLUTE MONOCYTES 0.7 <0.9 thou/cu mm 2024 12:01 PM CIGARETTE CATCHER [facility] ABSOLUTE EOSINOPHILS 0.1 <0.5 thou/cu mm 2024 12:01 PM CIGARETTE CATCHER [facility] ABSOLUTE BASOPHILS 0.0 <0.3 thou/cu mm 2024 12:01 PM CIGARETTE CATCHER [facility] Blood BLOOD SPECIMEN / Unknown Venipuncture / Unknown 2024 11:49 AM CIGARETTE CATCHER 2024 11:50 AM CIGARETTE CATCHER Sandra Littlejohnt DO HEMATOLOGY [facility] [address] [place] [address], * (ABNORMAL) LIPID PANEL W REFLEX MEASURED LDL (2024 11:49 AM CIGARETTE CATCHER) CHOLESTEROL,TOTAL 228(H) 100 - 199 mg/dL 2024 9:44 PM [facility] Comment: Cholesterol, Total Reference Ranges Desirable <200 mg/dL Borderline 200-239 mg/dL High >=240 mg/dL TRIGLYCERIDES 60 <150 mg/dL 2024 9:44 PM [facility] HDL CHOLESTEROL 140 >40 mg/dL 9:44 PM CIGARETTE CATCHER [facility] NON-HDL CHOLESTEROL 88 <145 mg/dl 2024 9:44 PM [facility] CHOL/HDL RATIO 1.63 <4.50 2024 9:44 PM [facility] LDL CHOLESTEROL 76 <=130 mg/dL 2024 9:44 PM [facility] VLDL CHOLESTEROL 12 <=30 mg/dL 2024 9:44 PM [facility] PROVIDER ORDERED STATUS RANDOM 2024 9:44 PM CIGARETTE CATCHER [facility] Blood BLOOD SPECIMEN / Unknown Venipuncture / Unknown 2024 11:49 AM CIGARETTE CATCHER 2024 11:50 AM CIGARETTE CATCHER Sandra Barragan DO CHEMISTRY Performing Organization Address City/[facility]/ZIP Co de Phone Number [facility] [address] [place] [address], * VITAMIN D 25 (DEFICIENCY) (2024 11:49 AM CIGARETTE CATCHER) VITAMIN D TOTAL 67.8 20.0 - 80.0 ng/mL 2024 9:44 PM CIGARETTE CATCHER [facility] Blood BLOOD SPECIMEN / Unknown Venipuncture / Unknown 2024 11:49 AM CIGARETTE CATCHER 2024 11:50 AM CIGARETTE CATCHER Narrative [facility] - 2024 9:44 PM CIGARETTE CATCHER ? Vitamin D Status Deficiency: ? <20 ng/mL Insufficiency: ?20-29 ng/mL Sufficiency: ?30-80 ng/mL Possible Toxicity: ??>80 ng/mL Based on [place] of Medicine recommendations Biotin supplements may cause clinically significant interference for this test assay. ??If interference is suspected, it is strongly recommended that biotin is discontinued for at least one week prior to retesting. Sandra Barragan DO SEND OUTS Performing Organization Address City/[facility]/ZIP Co de Phone Number [facility] [address] [place] [address], * TSH (2024 11:49 AM CIGARETTE CATCHER) TSH 1.74 0.27 - 4.20 uIU/mL 2024 9:44 PM CIGARETTE CATCHER [facility] Blood BLOOD SPECIMEN / Unknown Venipuncture / Unknown 2024 11:49 AM CIGARETTE CATCHER 2024 11:50 AM CIGARETTE CATCHER Narrative [facility] - 2024 9:44 PM CIGARETTE CATCHER In Adults, TSH values between 5.00 and 10.00 uIU/ml do not necessarily indicate the presence of Hypothyroidism. Correlation with clinical findings such as presence of goiter and/or Thyroperoxidase (TPO) Antibody may be helpful. For more information please refer to [place] 2004; 291: 228-238. Sandra Barragan DO CHEMISTRY Performing Organization Address City/[facility] Co de Phone Number [facility] [address] [place] [address], * C-REACTIVE PROTEIN (2024 11:49 AM CIGARETTE CATCHER) C-REACTIVE PROTEIN <0.3 <0.5 mg/dL 2024 9:45 PM CIGARETTE CATCHER [facility] Blood BLOOD SPECIMEN / Unknown Venipuncture / Unknown 2024 11:49 AM CIGARETTE CATCHER 2024 11:50 AM CIGARETTE CATCHER Sandra Barragan DO CHEMISTRY Performing Organization Address [facility] Co de Phone Number [facility] [address] [place] [address], * ALT (SGPT) (2024 11:49 AM CIGARETTE CATCHER) Pathologist [facility] ALT (SGPT) 19 10 - 35 IU/L 2024 9:44 PM CIGARETTE CATCHER [facility] Blood BLOOD SPECIMEN / Unknown Venipuncture / Unknown 2024 11:49 AM CIGARETTE CATCHER 2024 11:50 AM CIGARETTE CATCHER Sandra Barragan DO CHEMISTRY Performing Organization Address City/[facility] Co de Phone Number [facility] [address] [place] [address], * (ABNORMAL) BASIC METABOLIC PANEL (2024 11:49 AM CIGARETTE CATCHER) SODIUM 141 136 - 145 mmol/L 2024 9:[address] [facility] POTASSIUM 4.6 3.5 - 5.1 mmol/L 2024 9:[address] [facility] CHLORIDE 102 98 - 107 mmol/L 2024 9:[address] [facility] CO2,TOTAL 24 22 - 29 mmol/L 2024 9:[address] [facility] ANION GAP 15 5 - 18 2024 9:[address] [facility] GLUCOSE 97 70 - 99 mg/dL 2024 9:[address] [facility] CALCIUM 10.2 8.8 - 10.2 mg/dL 2024 9:[address] [facility] BUN 13 8 - 23 mg/dL 2024 9:[address] [facility] CREATININE 0.75 0.50 - 0.90 mg/dL 2024 9:[address] [facility] BUN/CREAT RATIO 17 10 - 20 9:[address] [facility] eGFR 84(L) >90 mL/min/1.7 3m2 2024 9:[address] [facility] Comment:As of 2022, eG FR is calculated by the CKD-EPI creatinine equation without race adjustment. ??eGFR can be influenced by muscle mass, exercise, and diet. ??The reported eGFR is an estimation only and is only applicable if the renal function is stable. Blood BLOOD SPECIMEN / Unknown Venipuncture / Unknown 2024 11:49 AM CIGARETTE CATCHER 2024 11:50 AM CIGARETTE CATCHER Sandra Barragan DO CHEMISTRY [facility] [address] [place] [address], [place] * CT CHEST SCREENING LOW DOSE WO CONTRAST (06/07/2023 10:17 AM CDT) Anatomical Region Laterality Modality Computed Tomogra phy 06/07/2023 10:1 7 AM CDT Impressions 06/07/2023 1:16 PM CDT 1. ??Few small stable groundglass opacities are noted within the right lower lobe which are probably inflammatory. ??No new nodules identified. LungRADS CATEGORY: 2 - Benign appearance or behavior (<1% risk of malignancy) -Perifissural nodules(s): <10 mm -Solid nodule(s): <6 mm on baseline screening; or new nodule <4 mm -Subsolid nodule(s): <6 mm on baseline screening -Ground glass nodule(s): <30 mm; or greater than or equal to 30 mm and unchanged or slowly growing - Category 3 or 4 nodules that are unchanged for greater than or equal to 3 months RADIOLOGIST RECOMMENDATION: Continue annual screening with low-dose CT chest in 12 months. Narrative 06/07/2023 1:16 PM CDT For Patients: As a result of the Cures Act, medical imaging exams and procedure reports are released immediately into your electronic medical record. You may view this report before your referring provider. If you have questions, please contact your health care provider. EXAM: LOW DOSE LUNG CANCER SCREENING CT CHEST LOCATION: [facility] DATE: 06/07/2023 INDICATION: Lung cancer screening. History of smoking. High risk patient. COMPARISON: 05/03/2022 TECHNIQUE: Low-dose lung cancer screening non-contrast CT chest. Dose reduction techniques were used. FINDINGS: NODULES: 1.3 x 1.2 cm groundglass nodule (series 3, image 369 remain stable. Stable 8 mm groundglass nodule right lower lobe (series 3, image 50). No new nodules are identified. LUNGS AND PLEURA: Minimal biapical pleural parenchymal thickening. Small bullous change right lung apex. ??No focal consolidation or effusion. MEDIASTINUM: Heart is normal in size. No adenopathy. CORONARY ARTERY CALCIFICATION: Severe. LIMITED UPPER ABDOMEN: Normal. MUSCULOSKELETAL: Degenerative changes of the spine. Procedure Note Lamin Jackman MD - 06/07/2023 For Patients: As a result of the 21st Century Cures Act, medical imagingexams and procedure reports are released immediately into your electronicmedical record. You may view this report before your referring provider.If you have questions, please contact your health care provider. EXAM: LOW DOSE LUNG CANCER SCREENING CT CHEST LOCATION: [facility] DATE: 06/07/2023 INDICATION: Lung cancer screening. History of smoking. High riskpatient. COMPARISON: 05/03/2022 TECHNIQUE: Low-dose lung cancer screening non-contrast CT chest. Dosereduction techniques were used. FINDINGS: NODULES: 1.3 x 1.2 cm groundglass nodule (series 3, image 369 remainstable. Stable 8 mm groundglass nodule right lower lobe (series 3, image50). No new nodules are identified. LUNGS AND PLEURA: Minimal biapical pleural parenchymal thickening. Smallbullous change right lung apex. No focal consolidation or effusion. MEDIASTINUM: Heart is normal in size. No adenopathy. CORONARY ARTERY CALCIFICATION: Severe. LIMITED UPPER ABDOMEN: Normal. MUSCULOSKELETAL: Degenerative changes of the spine. IMPRESSION: 1. Few small stable groundglass opacities are noted within the rightlower lobe which are probably inflammatory. No new nodules identified. LungRADS CATEGORY: 2 - Benign appearance or behavior (<1% risk ofmalignancy) -Perifissural nodules(s): <10 mm -Solid nodule(s): <6 mm onbaseline screening; or new nodule <4 mm -Subsolid nodule(s): <6 mm onbaseline screening -Ground glass nodule(s): <30 mm; or greater than orequal to 30 mm and unchanged or slowly growing - Category 3 or 4 nodulesthat are unchanged for greater than or equal to 3 months RADIOLOGIST RECOMMENDATION: Continue annual screening with low-dose CTchest in [address] * COLONOSCOPY (05/07/2019 8:00 AM CDT) 05/07/2019 8:00 AM CDT Narrative Transcriptions Brian Haney MD - 05/07/2019 8:43 AM CDT Patient Name: Itzel Sahni Procedure Date: 05/07/2019 Gender: Female Date of : 1950 Admit Type: Outpatient Procedure: Colonoscopy Proceduralist: Brian Haney MD , Yanira Alexander (Nurse) Indications/Pre-Op Diagnosis: Surveillance: Personal history ofadenomatous polyps on last colonoscopy > 5 years ago,Last colonoscopy: April 2007 Medications: Fentanyl 100 micrograms IV, Midazolam 4 mgIV, The level of sedation administered wasmoderate Procedure Description: The patient had risks, benefits and alternatives explained to andgave informed consent. The patient had a stable cardiopulmonary status and judged an adequate candidate for conscious sedation. The Colonoscope was passed through the anus and advanced to thececum, identified by appendiceal orifice and ileocecal valve. Thecolonoscopy was performed without difficulty. The patient tolerated the procedure well. The quality of the bowel preparation was good. The ileocecal valve, appendiceal orifice, and rectum were photographed. Complications: No immediate complications. Estimated Blood Loss & Specimen: Estimated blood loss: none. Specimen collected - Yes and sent to Laboratory Findings: The perianal and digital rectal examinations were normal. Two sessile polyps were found in the sigmoid colon. The polyps were 3to 4 mm in size. These polyps were removed with a cold snare. Resectionand retrieval were complete. The exam was otherwise without abnormality on direct and retroflexion views. Impressions/Post-Op Diagnosis: - Two 3 to 4 mm polyps in the sigmoid colon, removed with a coldsnare. Resected and retrieved. - The examination was otherwise normal on direct and retroflexionviews. Recommendation: - Patient has a contact number available for emergencies. The signsand symptoms of potential delayed complications were discussed with the patient. Return to normal activities tomorrow. Written discharge instructions were provided to the patient. - Resume previous diet. - Continue present medications. - Await pathology results. - Repeat colonoscopy in 5 years for surveillance. Moderate Sedation: Moderate (conscious) sedation was administered by the endoscopy nurse and supervised by the endoscopist. The following parameters were monitored: oxygen saturation, heart rate, respiratory rate, blood pressure, adequacy of pulmonary ventilation and reponse to care. [facility] flow[facility] and nursing notes for moderate sedation details. Total physician intraservice time was 25 minutes. Brian Haney MD 05/07/2019 8:43:03 AM This report has been signed electronically. Note Initiated On: 05/07/2019 8:00 AM Procedure Code(s): --- Professional --- 81513, Colonoscopy, flexible; with removalof tumor(s), polyp(s), or other lesion(s) bysnare technique Diagnosis Code(s): --- Professional --- Z86.010, Personal history of colonicpolyps D12.5, Benign neoplasm of sigmoid colon CPT copyright 2017 [employer]. All rights reserved. The codes documented in this report are preliminary and upon stockroom supervisor reviewmay be revised to meet current compliance requirements. Scope In: 8:11:35 AM Scope Withdrawal Time 0 hours 17 minutes 2 seconds Scope Out: 8:35:07 AM Brian Haney MD PROCEDURE ORD * XR DXA BONE DENSITY 1 SITE AXIAL AND 1 SITE PERIPHERAL (03/07/2018 2:39 PM CDT) Anatomical Region Laterality Modality LUMBAR SPINE Other Sandra Barragan DO DEXA * ANTI HCV [30792.2] (12/28/2015 11:44 AM CIGARETTE CATCHER) HEPATITIS C ANTIBODY Non-Reacti ve Non-Reacti ve 12/28/2015 4:35 PM CIGARETTE CATCHER [facility] Blood specimen (specimen) BLOOD SPECIMEN / Unknown Venipuncture / Unknown 12/28/2015 11:44 AM CIGARETTE CATCHER 12/28/2015 11:44 AM CIGARETTE CATCHER Narrative [facility] - 12/28/2015 4:35 PM CIGARETTE CATCHER Antibodies to HCV not detected; does not exclude the possibility of exposure to HCV. Sandra Barragan DO SEND OUTS [facility] [employer] [facility] [address] [place] [address], [place] from Last 3 Months or Most Recently Relevant to Health Maintenance Advance Directives Documents on File Type Date Recorded Patient Plate Stacker Hand Expl anation Healthcare Directive 03/18/2011 HEALTH CARE DIRECTIVE, [facility], 03/18/11 * Full Code (Latest Code Status on File) Date Activated Date Inactivated Comments 06/22/2015 10:47 AM 06/22/2015 2:40 PM * Full Code Date Activated Date Inactivated Comments 04/02/2012 1:18 PM 04/03/2012 2:11 AM Care Teams Law Enforcement Director Relationship Specialty Start Date End Date Sandra [place] [address] PCP - General Family Practice 11/16/23 [place] [address] [place] [address] Gas Station Service Attendant 12/26/14 Ni Juarez MD [address] [place] [address] Rheumatology Rheumatology 09/03/20
--- OUTSIDE RECORDS SUMMARY | 2024-03-26 09:29 | XMS_ITS | Continuity of Care Document ---
Author Name Unknown Organization Z [facility] Address [address] [place] [address] Phone Care Team Providers Care Terminal Computer Operator Name Role Phone Mihaela Ross MD Unavailable Unavailable Procedures Procedure Date Office/outpatient visit,est, low 2009 Office consultation, moderate 0 X-ray exam lwr spine, min 4 views Advance Directives Directive Yes / No Effective Date File Name No Information Encounters Encounter Description Practice Location Reason(s) For Visit Diagnoses Date Provider Providers Copied on Encounter Office/outpat ient visit,est, low Z [facility], [address] [place] [address], [facility], tel:[phone] ROI² No Information Cody Chairez. [facility], [address] [place] [address] [address], [place], [place], [id number] , [place]. tel:[phone] Referring Provider: Nevaeh Mcmanus, [facility] [address], [place], [address] . tel:[phone] Office consultation, moderate Z [facility], [address] [place], [place] [address]ite [facility], [place], [address], [place] tel:[phone] ROI² No Information Cody Chairez. [facility], [address] [facility], [place], [place], [id number] , [place]. tel:[phone] Referring Provider: Nevaeh Mcmanus, [facility] [place] [address] [address], [address] . tel:[phone] Family History Family Member Type Diagnosis Age At Onset No Information Payers Payer name Insurance type Covered constitution party ID Mai yadav(s) [facility] [id number] Social History Type Description Quantity Date Captured [...]
== END 2024-03-26 09:26 | disposition home or self-care (01) ==
PROVIDERS: PCP Family Medicine; Visit Provider Family Medicine
DX: M54.16 Radiculopathy, lumbar region (principal); M51.36 Other intervertebral disc degeneration, lumbar region
CPT/HCPCS: 62323; J0702; Q9966

== ENCOUNTER 2024-06-03 08:54 | Outpatient (CLI) | payer MEDICARE, SELFPAY ==
--- NOTE | 2024-06-03 09:15 | CRLHL7_ITS ---
For Patients: As a result of the Century Cures Act, medical imaging exams and procedure reports are released immediately into your electronic medical record. You may view this report before your referring provider. If you have questions, please contact your health care provider. ULTRASOUND-GUIDED BREAST BIOPSY AND POST-BIOPSY DIGITAL MAMMOGRAM FOR BIOPSY MARKER PLACEMENT CLINICAL HISTORY: Indeterminate nodule. COMPARISON STUDIES: 05/09/2024. TECHNIQUE: Real-time ultrasound with image documentation was used for targeting the breast lesion. Core biopsy specimens were obtained using an automated gun with a 18-gauge biopsy needle. Post-biopsy CC and ML digital mammograms were obtained to document position of the biopsy marker. CONSENT and TIME OUT: The procedure, risks, and alternatives were explained to the patient and a consent was signed. [place] Protocol was followed including pre-procedure verification that relevant information/documentation was available, reviewed and properly matched to the patient; consent accurate and complete; and equipment and supplies available. Time Out was conducted just prior to starting procedure to verify the four required elements: patient identity, correct side/site marked (if applicable), procedure, relevant images/results properly labeled and displayed (if applicable). PROCEDURE: The patient was positioned supine on the ultrasound table. The breast was prepped with ChloraPrep. 8 cc of 1 percent lidocaine used for local anesthesia. Core samples were obtained. A sterile metal biopsy clip was placed percutaneously to sven the lesion position within the breast. The specimens were placed in 10% formalin and sent to the pathology department. Pressure was held on the biopsy site until all bleeding subsided. The skin incision was closed with Steri-Strips. An ice pack was positioned over the biopsy site. Post-biopsy instructions were reviewed with the patient, and a written copy was given to her. LATERALITY: LEFT breast. LESION: Heterogeneous solid nodule measuring 5 x 4 x 8 millimeters at 9 o`clock 8 cm from the nipple. SUSPICION FOR MALIGNANCY: Intermediate. NUMBER OF SAMPLES: 5. BIOPSY CLIP SHAPE: Oval. PROXIMITY OF CLIP TO TARGET: Within the lesion. IMPRESSION: Ultrasound-guided breast biopsy. When the pathology report is available, an addendum to this report will be made. ACR not applicable Dictated by Gordon Torres MD @ 06/03/2024 12:52:29 PM jj/Dictated by: Gordon Torres MD @ 06/03/2024 12:52:00 PM (Electronically Signed)
--- NOTE | 2024-06-03 10:00 | CRLHL7_ITS ---
For Patients: As a result of the Century Cures Act, medical imaging exams and procedure reports are released immediately into your electronic medical record. You may view this report before your referring provider. If you have questions, please contact your health care provider. PLEASE SEE ULTRASOUND-GUIDED LEFT BREAST BIOPSY PERFORMED SAME DAY CRL:[email or web address] westfall/Dictated by: Gordon Torres MD @ 06/03/2024 12:52:00 PM (Electronically Signed)
== END 2024-06-03 08:55 | disposition home or self-care (01) ==
LOC: US 08:55
PROVIDERS: PCP Family Medicine; Visit Provider Family Medicine
DX: N63.20 Unspecified lump in the left breast, unspecified quadrant (principal); R92.8 Other abnormal and inconclusive findings on diagnostic imaging of breast
CPT/HCPCS: 19083; 77065; 88305; 88342; A4648; A4649

== ENCOUNTER 2024-06-17 13:15 | Outpatient (CLI) | payer MEDICARE, SELFPAY ==
--- OUTSIDE RECORDS SUMMARY | 2024-06-17 13:23 | XMS_ITS | Continuity of Care Document ---
Author Organization Z [facility] Address [address] [place] [address] Phone Care Team Providers Care Sap Functional Analyst Name Role Phone Mihaela Ross MD Unavailable Unavailable Procedures Procedure Date Office/outpatient visit,est, low 2009 Office consultation, moderate 0 X-ray exam lwr spine, min 4 views Advance Directives Directive Yes / No Effective Date File Name No Information Encounters Encounter Description Practice Location Reason(s) For Visit Diagnoses Date Provider Providers Copied on Encounter Office/outpat ient visit,est, low Z [facility], [address] [place] [address], [facility], [place] tel:[phone] ActBlue No Information Cody Chairez. [facility], [address] [address], [place], [place], [id number] , [place]. tel:[phone] Referring Provider: Nevaeh Mcmanus, [facility] [address], [place], [address] . tel:[phone] Office consultation, moderate Z [facility], [address] [place] [address], [place], [address], [place] tel:[phone] [employer] No Information Cody Chairez. [facility], [address], [id number] , [place]. tel:[phone] Referring Provider: Nevaeh Mcmanus, [facility] [place], [address] . tel:[phone] Family History Family Member Type Diagnosis Age At Onset No Information Payers Payer name Insurance type Covered alliance party ID Mai yadav(federico) BRITT [id number] Social History Type Description Quantity Date Captured [...]
--- OUTSIDE RECORDS SUMMARY | 2024-06-17 13:23 | XMS_ITS | Clinical Summary ---
Author Organization [employer] [facility] Address [place], [place] [address] Care Team Providers Care Dump Grader Name Role Phone Pérez Black OD Unavailable [phone] Ni Juarez MD Unavailable [phone] Sandra Barragan DO Primary Care Provider Allergies [...] 1 tablet by mouth once daily. 0 6 Active amoxicillin (AMOXIL) 500 mg capsule Dental appointments 9 Active albuterol (PROVENTIL) 0.083 % neb solutionIndicatio ns:COPD exacerbation (HC) Inhale 3 mL (2.5 mg) via a nebulizer every 6 hours if needed for Cough 1st choice. 180 mL 2 Active aspirin (ECOTRIN) 81 mg enteric coated tabletIndications :Vertebral artery stenosis, symptomatic, without infarction, bilateral Take 1 Tablet (81 mg) by mouth once daily with a meal. 0 2 Active erythromycin ophthalmic ointment 0.5% APPLY SPARINGLY TO BOTH EYES AT BEDTIME NEEDED 2 Active hydrOXYchloroQUIN E (PLAQUENIL) 200 mg tabletIndications :Pain in joint, multiple sites Take 1 Tablet (200 mg) by mouth once daily. 90 Tablet 4 3 Active rosuvastatin (CRESTOR) 10 mg tabletIndications :Vertebral artery stenosis, symptomatic, without infarction, bilateral Take 1 Tablet (10 mg) by mouth at bedtime. 90 Tablet 4 3 Active betamethasone dipropionate 0.05% (DIPROSONE 0.05% OINTMENT) 0.05 % ointmentIndicatio ns:Bug bite, initial encounter Apply topically to affected area(s) two times daily. 45 g 3 Active albuterol-ipratro pium (DUONEB) (2.5-0.5 mg) in 3 mL NEBULIZATION solutionIndicatio ns:COPD with chronic bronchitis (HC) Inhale 3 mL via a nebulizer three times daily. 1080 mL 3 Active amLODIPine (NORVASC) 5 mg tabletIndications :HTN (hypertension) Take 1 Tablet (5 mg) by mouth once daily. 90 Tablet 2 4 Active escitalopram oxalate (LEXAPRO) 20 mg tabletIndications :Persistent postural-perceptu al dizziness Take 1 Tablet (20 mg) by mouth every morning. 90 Tablet 3 4 Active mupirocin (BACTROBAN OINTMENT) ointmentIndicatio ns:Impetigo Apply topically to affected area(s) three times daily. 15 g 4 Active methotrexate (RHEUMATREX) 2.5 mg tabletIndications :Pain in joint, multiple sites TAKE 4 TABLETS BY MOUTH ON MONDAY AND 4 TABLETS ON MONDAY 96 Tablet 4 4 Active clonazePAM (KLONOPIN) 0.5 mg tabletIndications :Restless legs syndrome (RLS),Fibromyalgi a TAKE 2 TABLETS BY MOUTH EVERY DAY AT BEDTIME 60 Tablet 5 4 Active folic acid 1 mg tabletIndications :Pain in joint, multiple sites TAKE 1 TABLET (1 MG) BY MOUTH ONCE DAILY 90 Tablet 2 4 Active fluticasone furoate-vilantero L (Breo Ellipta) 100-25 mcg/dose inhalation powderIndications :COPD with chronic bronchitis (HC) Inhale 1 Puff by mouth once daily. 60 Each 4 Active levothyroxine (SYNTHROID) 88 mcg tabletIndications :Hypothyroidism (acquired) TAKE 1 TABLET (88 MCG) BY MOUTH BEFORE BREAKFAST 90 Tablet 1 4 Active levothyroxine (SYNTHROID) 88 mcg tabletIndications :Hypothyroidism (acquired) Take 1 Tablet (88 mcg) by mouth before breakfast. 90 Tablet 4 3 024 Discontinued fluticasone furoate-vilantero L (Breo Ellipta) 100-25 mcg/dose inhalerIndication s:COPD with chronic bronchitis (HC) INHALE ONE PUFF BY MOUTH EVERY DAY 180 Each 4 024 Discontinued gabapentin (NEURONTIN) 300 mg capsuleIndication s:Lumbar radiculopathy Take 1 Capsule (300 mg) by mouth at bedtime. 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 04/07/2009 03/07/2018 Fibromyalgia 08/04/2008 08/18/2008 Lupus erythematosus 03/01/2007 09/30/20 08 Overview: 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 Presbyopia 05/31/2006 08/08/2016 Myopia 05/31/2006 02/17/2012 Encounters Date Type Department Care Team Description 06/17/2024 Refill [facility] [address] [facility] [place] [address] Sandra Barragan DO Refill Request (Rosuvastatin) 06/14/2024 Orders Only [facility] [address] [facility] [place] [address] Sandra Barragan DO <No scans attached> 06/13/2024 12:45 PM CDT Ancillary Procedure [facility] [address] [place] [id number] 06/13/2024 Telephone [facility] [address] [place] [phone] Sandra Barragan DO Lung Cancer Screening - CT Result 06/13/2024 Travel 06/11/2024 10:59 AM CDT - 06/11/2024 11:59 PM CDT Hospital En[facility] [place] [address] [address] [place] [address] Sandra Barragan DO Lonetti, Jennifer D, PT 06/11/2024 Travel 06/10/2024 Orders Only [facility] [address] [place] [address] Sandra Barragan DO 1 scan: (1-Ord) [facility], US GUIDED BREAST BIOPSY LT, 06/03/2024 06/07/2024 10:35 AM CDT Ancillary Procedure [facility] [address] [place] [phone] 06/07/2024 10:00 AM CDT Office Visit [facility] [place] [address] [place] [phone] Gema Aragon, ASSEMBLER SEAT Hand Pain/problem 06/07/2024 Travel 06/04/2024 11:03 AM CDT - 06/04/2024 11:59 PM CDT Hospital Encounter [facility] [address] [place] [address] [address] [place] [address] Sandra Barragan DO Lonetti, Jennifer D, PT 06/04/2024 Travel 06/03/2024 Orders Only [facility] Scanner 1 scan: (1-Ord) CINEBAR, MM CLIP PLACEMENT LT, 06/03/2024 06/03/2024 Orders Only [facility] Scanner 1 scan: (1-Ord) [facility], US GUIDED BREAST BIOPSY, 06/03/2024 06/03/2024 Lab Requisition [facility] [phone] Sandra Barragan DO 05/30/2024 Refill [facility] [address] [place] [address] Sandra Barragan DO Refill Request (Levothyroxine) 05/28/2024 11:03 AM CDT - 05/28/2024 11:59 PM CDT Hospital Encounter [facility] [address] [place] [address] [address] [place] [address] Sandra Barragan DO Lonetti, Jennifer D, PT 05/28/2024 Travel 05/22/2024 10:20 AM CDT Office Visit [facility] [address] [place] [address] Claude Méndez MD Musculoskeletal Problem (Follow up back pain, FANG on 03/26/24) 05/22/2024 Refill [facility] [address] [place] [address] Sandra Barragan DO Refill Request (Breo Ellipta) 05/21/2024 9:39 AM CDT - 05/21/2024 11:59 PM CDT Hospital Encounter [facility] [address] [place] [address] Sandra Barragan DO Lonetti, Jennifer D, PT 05/21/2024 Travel 05/15/2024 9:17 AM CDT - 05/15/2024 11:59 PM CDT Hospital Encounter [facility] [address] [place] [address] Sandra Barragan DO Lonetti, Jennifer D, PT 05/15/2024 Travel 05/09/2024 2:30 PM CDT Ancillary Procedure [facility] [address] [place] [address] 05/09/2024 2:00 PM CDT Ancillary Procedure [facility] [address] [place] [address] 05/09/2024 Ancillary Orders [facility] [address] [place] [address] Sandra Barragan, 05/09/2024 Travel 05/07/2024 Refill [facility] [address] [place] [address] Sandra Barragan DO Refill Request (Folic Acid) 05/03/2024 10:03 AM CDT - 05/03/2024 11:59 PM CDT Hospital Encounter [facility] [address] [place] [address] Sandra Barragan DO Lonetti, Jennifer D, PT Weakness; Balance problem 05/03/2024 Orders Only [facility] [address] [place] [address] Sandra Barragan, <No scans attached> 05/03/2024 Travel 04/26/2024 10:40 AM CDT Ancillary Procedure [facility] [address] [place] [address] 04/26/2024 Travel 04/17/2024 Telephone [facility] [address] [place] [address] Sandra Barragan DO Lab (No Orders) 04/02/2024 Refill [facility] [address] [place] [address] Sandra Barragan DO Refill Request (Clonazepam) 03/28/2024 Refill [facility] [address] [place] [address] Sandra Barragan DO Refill Request (Methotrexate) 03/26/2024 10:00 AM CDT Office Visit [facility] [address] [place] [address] Claude Méndez MD Procedure (L4-5 ILESI) 03/26/2024 Orders Only [facility] Scanner 1 scan: (1-Ord) [facility], INJ L4-5 , 03/26/2024 03/18/2024 3:30 PM CDT Office Visit [facility] [address] [place] [address] Sandra Barragan DO Suture Removal (remove sutures and look at lip) 03/18/2024 Travel from Last 3 Months Immunizations Name Administration Dates Next Due Amb Influenza, Inact (High-d ose) (Flu Clinic Only) 08/21/2015,08/12/2014 COVID-19 vaccine (Pfizer-Bio NTech 30mcg/0.3mL) 12YO+ BIVALENT PF, MDV 08/10/2022 COVID-19 vaccine (Pfizer-Bio NTech 30mcg/0.3mL) 12YO+ LUI-SUCROSE PF, MDV 06/08/2022 COVID-19 vaccine (Pfizer-Bio NTech 30mcg/0.3mL) PF, MDV 09/20/2021,02/12/2021,01/22/2021 Influenza A [...] History Relation Name Comments Other Father d72, [place] Other Mother d76, [place] g heart valve surgery Other Sister 2 MS Anesthesia Malignant Hyperthermia No Family History Blood Disease No Family History Cancer-breast No Family History Cancer-ovarian No Family History Relation Name Status Comments Father Mother Sister 1 Alive Sister 2 Social History Tobacco Use Types Packs/Day Years Used Date Smoking Tobacco: Every Day Cigarettes 0.5 57.1 Started: 05/19/1967 Smokeless Tobacco: Never Tobacco Cessation:Ready to Q uit: No; Counseling Given: Yes Alcohol Use Standard Drinks/Week Comments Yes 7 [...] Outcome GA Total Labor Labor/2nd/3rd Weight Sex Type Anes PTL Keke A1 A5 Name Clin Term Term Last Filed Vital Signs Vital Sign Reading Time Taken Comments Blood Pressure 141/85 06/07/2024 10:08 AM CDT Pulse 97 06/07/2024 10:08 AM CDT Temperature 36.7 ??C (98 ??F) 06/07/2024 10:08 AM CDT Respiratory Rate 20 03/07/2024 11:19 AM CDT Oxygen Saturation 95% 06/07/2024 10:08 AM CDT Inhaled Oxygen Concentration - - Weight 75.6 kg (166 lb 9.6 oz) 03/18/2024 3:37 P M CDT Height 167.6 cm (5' 6) 03/29/2023 11:14 AM CDT Body Mass Index 26.89 03/29/2023 11:14 AM CDT Plan of Treatment Upcoming Encounters Date Type Department Care Team (Late st Contact Info) Description 06/18/2024 11:15 AM CDT [facility]ment [facility] [place] [address] [facility] [address] [place] [address] [place] [address] [address] [facility] [address] [place] [address] 06/19/2024 1:00 PM CDT Office Visit [facility] [address] [place] [address] Kaila Graham MD [address] [place] [address] 06/25/2024 10:30 AM CDT Appointment [facility] [place] [address] [place] [address] [place] [address] [place] [address] 07/02/2024 10:30 AM CDT Appointment [facility] [place] [address] [place] [address] [place] [address] [place] [address] 07/09/2024 10:00 AM CDT [facility] [place] [address] [place] [address] Lillian Herr, PT [address] [facility] [address] [place] [address] 07/16/2024 10:30 AM CDT Appointment [facility] [place] [address] [place] [address] [place] [address] [place] [address] 07/24/2024 11:05 AM CDT Office Visit [facility] [address] [place] [address] Sandra Barragan DO [address] [place] [address] Health Maintenance Due Date Last Done Comments [...] exists Colonoscopy through age 75 05/07/2024 05/07/2019, Influenza for age 65+ 07/21/2024 08/10/2022 , 08/31/2021, 07/28/2020, Additional history exists Low Dose CT (for lung CA) ag e 50-80 06/13/2025 06/13/2024, 06/07/2023, 05/13/2022, Additional history exists Tetanus booster 06/18/2028 06/18/2018, 06/21, 11/20/1996 Lipids for age 45-75 01/23/2029 2024, 03/29/2023, 10/11/2022, Additional history exists Hepatitis C screening for ag e 18-79 Completed 12/28/2015 Pneumococcal series for age 65+ Completed 12/28/2015, 12/26/2014, 10/25/2000 DEXA/DXA scan for age 65+ Completed 2017, 02/24/2015, 01/29/2013 Tdap Completed 06/18/2018, 07/11/2007 Medical Devices Implanted Type Area Nut Sorter Device Identifier Shelf Expiration Date Model / Serial / Lot Lens Iol 21.0 Wf [id number] - [id number] Implanted:Qty: 1 on 06/22/2015 by Atilio Mendoza MD at [facility] Right: Eye [employer] 03/19/2020 [id number]. [id number] / [id number] / Procedures Procedure Name Priority Date/Time Associated Diagnosis Comments CT CHEST SCREENING LOW DOSE WO CONTRAST Routine 06/13/2024 12:59 PM CDT Encounter for screening for lung cancer Smoker XR HAND 3 VIEWS LEFT STAT 06/07/2024 10:35 AM CDT Hand injury, left, initial encounter Injury of left wrist, initial encounter LAB TRACKING EVENT Routine 06/03/2024 9: 40 AM CDT PATH BREAST CORE BIOPSY Routine 06/03/2024 9:40 AM CDT US BIOPSY BREAST NEEDLE W HARJINDER W GUIDE LEFT ROBERT 06/03/2024 12:00 AM CDT Abnormal mammogram SCAN-OPERATIVE/PROCE DURE REPORT 06/03/2024 12:00 AM CDT SCAN-OPERATIVE/PROCE DURE REPORT 06/03/2024 12:00 AM CDT US BREAST UNILATERAL LEFT LIMITED ROBERT 05/09/2024 2:25 PM CDT Abnormal mammogram XR MAMMO VIVEK UNI ADDL VIEWS LEFT ROBERT 05/09/2024 2:11 PM CDT Abnormal mammogram XR MAMMO VIVEK BILAT SCREEN Routine 04/26/2024 10:57 AM CDT Visit for screening mammogram AMB EPIDURAL STEROID INJECTION Routine 03/26/2024 8:07 AM CDT Lumbar foraminal stenosis Degenerative disc disease, lumbar Lumbar facet arthropathy SCAN-OPERATIVE/PROCE DURE REPORT 03/26/2024 12:00 AM CDT LIPID PANEL W REFLEX MEASURED LDL Routine 2024 11:49 AM 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 ??1.4 cm semisolid nodule in the right lower lobe with questionable 4 mm solid component appears minimally increased. Follow-up chest CT in 6 months is suggested. LungRADS CATEGORY: 3 - Probably benign (1-2% risk of malignancy) -Solid nodule(s): Greater than or equal to 6 mm to <8 mm at baseline; or new nodule 4 mm to <6 mm - Subsolid nodule(s): Greater than or equal to 6 mm total diameter with solid component <6 mm: or new <6 mm total diameter -Ground glass nodule(s): Greater than or equal to [address] or new RADIOLOGIST RECOMMENDATION: Low-dose CT chest in 6 months. Narrative 06/13/2024 2:06 PM CDT For Patients: As a result of the Century Cures Act, medical imaging exams and procedure reports are released immediately into your electronic medical record. You may view this report before your referring provider. If you have questions, please contact your health care provider. EXAM: LOW DOSE LUNG CANCER SCREENING CT CHEST LOCATION: [facility] DATE: 06/13/2024 INDICATION: Lung cancer screening. History of smoking. High risk patient. COMPARISON: 06/07/2023 and 05/13/2022 TECHNIQUE: Low-dose lung cancer screening non-contrast CT chest. Dose reduction techniques were used. FINDINGS: NODULES: No new suspicious pulmonary nodules. 1.1 cm ill-defined groundglass opacity without suspicious soft tissue nodularity in the right upper lobe posteriorly is stable on series 3, image #333. Adjacent 1.4 cm ill-defined groundglass density in the right lower lobe with questionable 4 mm soft tissue density nodule and two questionable 2 mm nodules appear minimally increased on series 3, image #[id number]. 3 mm nodular density in the right lower lobe appears slightly increased in image 235. 2 mm nodule in the left lower lobe is unchanged image 163. LUNGS AND PLEURA: Mild scarring and subpleural cystic change in the right lung apex posteriorly remain stable. Mild secretions in the distal trachea and right mainstem bronchus with minimal bronchial wall thickening. No consolidation or pleural effusion. MEDIASTINUM: The heart is normal in size. Thoracic aorta is nonaneurysmal with mild atherosclerotic changes. No suspicious adenopathy. CORONARY ARTERY CALCIFICATION: Severe. LIMITED UPPER ABDOMEN: Increase in geographical nonmass-like low-density within the hepatic segment 4 which may be due to focal fatty infiltration. Atherosclerotic changes. No suspicious findings. MUSCULOSKELETAL: Degenerative changes of the spine. Procedure Note Clifton Mansfield MD - 06/13/2024 For Patients: As a result of the Cures Act, medical imagingexams and procedure reports are released immediately into your electronicmedical record. You may view this report before your referring provider.If you have questions, please contact your health care provider. EXAM: LOW DOSE LUNG CANCER SCREENING CT CHEST LOCATION: [facility] DATE: 06/13/2024 INDICATION: Lung cancer screening. History of smoking. High riskpatient. COMPARISON: 06/07/2023 and 05/13/2022 TECHNIQUE: Low-dose lung cancer screening non-contrast CT chest. Dosereduction techniques were used. FINDINGS: NODULES: No new suspicious pulmonary nodules. 1.1 cm ill-definedgroundglass opacity without suspicious soft tissue nodularity in the rightupper lobe posteriorly is stable on series 3, image #333. Adjacent 1.4 cmill-defined groundglass density in the right lower lobe with questionable4 mm soft tissue density nodule and two questionable 2 mm nodules appearminimally increased on series 3, image #[id number]. 3 mm nodular density inthe right lower lobe appears slightly increased in image 235. 2 mm nodulein the left lower lobe is unchanged image 163. LUNGS AND PLEURA: Mild scarring and subpleural cystic change in the rightlung apex posteriorly remain stable. Mild secretions in the distal tracheaand right mainstem bronchus with minimal bronchial wall thickening. Noconsolidation or pleural effusion. MEDIASTINUM: The heart is normal in size. Thoracic aorta is nonaneurysmalwith mild atherosclerotic changes. No suspicious adenopathy. CORONARY ARTERY CALCIFICATION: Severe. LIMITED UPPER ABDOMEN: Increase in geographical nonmass-like low-densitywithin the hepatic segment 4 which may be due to focal fatty infiltration.Atherosclerotic changes. No suspicious findings. MUSCULOSKELETAL: Degenerative changes of the spine. IMPRESSION: 1. 1.4 cm semisolid nodule in the right lower lobe with questionable 4 mmsolid component appears minimally increased. Follow-up chest CT in 6months is suggested. LungRADS CATEGORY: 3 - Probably benign (1-2% risk of malignancy) - Solidnodule(s): Greater than or equal to 6 mm to <8 mm at baseline; or newnodule 4 mm to <6 mm - Subsolid nodule(s): Greater than or equal to 6 mmtotal diameter with solid component <6 mm: or new <6 mm total diameter-Ground glass nodule(s): Greater than or equal to [address] ornew RADIOLOGIST RECOMMENDATION: Low-dose CT chest in 6 [address]. Sandra [address] DO CT * XR HAND 3 VIEWS LEFT (06/07/2024 10:35 AM CDT) Anatomical Region Laterality Modality HANDS, HAND L Computed Radiogr aphy 06/07/2024 10:3 5 AM CDT Impressions 06/07/2024 10:53 AM CDT Degenerative change at the STT joint and first CMC joint. Degenerative change at the first MCP joint. Marginal negative ulnar variance. Narrative 06/07/2024 10:53 AM CDT For Patients: As a result of the Cures Act, medical imaging exams and procedure reports are released immediately into your electronic medical record. You may view this report before your referring provider. If you have questions, please contact your health care provider. EXAM: XR HAND 3 VIEWS LEFT LOCATION: [facility] DATE: 06/07/2024 INDICATION: Pain after injury COMPARISON: None. Procedure Note Obey Schultz MD - 06/07/2024 For Patients: As a result of the Cures Act, medical imagingexams and procedure reports are released immediately into your electronicmedical record. You may view this report before your referring provider.If you have questions, please contact your health care provider. EXAM: XR HAND 3 VIEWS LEFT [facility]: 06/07/[facility]24 INDICATION: Pain after injury COMPARISON: None. IMPRESSION: Degenerative change at the STT joint and first CMC joint. Degenerativechange at the first MCP joint. Marginal negative ulnar variance. Gema Aragon ASSEMBLER SEAT GENERAL IMAGING * LAB TRACKING EVENT (06/03/2024 9:40 AM CDT) Other (Other) Client Collect / Unknown 06/03/2024 9:40 AM CDT 06/03/2024 10:06 PM CDT Sandra Barragan DO LAB BILL ONLY [facility] [address] [place] [address], * PATH BREAST CORE BIOPSY (06/03/2024 9:40 AM CDT) Case Report Pathology Report ?Case: [id number] ? Authorizing Provider: ??Sandra Barragan, DO ? Collected: ? 06/03/2024 0940 ? Ordering Location: ? [facility] ?Received: ?06/04/2024 0850 ? Pathologist: ? Janel Connor MD ? Specimen: ?Left Breast Core Ultrasound Biopsy ? 06/06/2024 3:20 PM T [facility] Final Diagnosis A) LEFT BREAST, 9:00, 8 CM FROM NIPPLE, ULTRASOUND-GUIDED CORE BIOPSY: 1. Atypical ductal proliferation, suspicious but not diagnostic for invasive carcinoma, see comment 06/06/2024 3:20 PM T [facility] Comment A) There is a small cluster of 4 glands that is suspicious but not diagnostic for well differentiated adenocarcinoma. This focus is present on initial levels of the biopsy, but is lost on deeper sections. Immunostains for myoepithelial cells (p63 and SMMS) are attempted; however, tissue is lost in processing and the stains are non-contributory. Additional sampling or re-excision is recommended for definitive diagnosis. This is an image-guided breast biopsy. The pathologic findings should be correlated with radiologic and clinical findings prior to treatment decisions. Case seen in consultation with Dr. White. 06/06/2024 3:20 PM T [facility] Clinical Information Left breast oval indistinct solid hypoechoic and hyperechoic mass, 5 x 4 x 8 mm, 9:00, 8 cm from the nipple. 06/06/2024 3:20 PM [facility] Gross Description A) Label: ??Patient's name and left breast core ultrasound biopsy 9:00 8 cm FN Description: 7 Fibrofatty core biopsies Size: 0.2-0.7 cm in length by 0.2 cm in diameter Ink color: Black The specimen is submitted in toto in one cassette. Cold ischemic time: Less than 60 minutes, meets current ASCO/CAP guidelines. ?? The specimen was fixed in formalin for a minimum of 6 hours and not longer than 72 hours. CATHERINE 06/04/2024 ? 06/06/2024 3:20 PM [facility] Microscopic Description The final diagnosis is based on microscopic examination of appropriate sections of all specimens. A) The presence of black ink is confirmed on tissue sections. 06/06/2024 3:20 PM CDT [facility] Additional Information Interpreted at [facility] Laboratory - [address], [place] [address] Immunohistochemis try controls were reviewed and approved by the pathologist during this examination. 06/06/2024 3:20 PM CDT [facility] ENTRAL LABORATORY Other (Left Breast Core Ultrasound Biopsy) 06/03/2024 9:40 AM CDT 06/04/2024 8:50 AM CDT Sandra Barragan DO PATHOLOGY/CYTOLOGY [facility] [address] [place] [address], [place] * US BIOPSY BREAST NEEDLE W HARJINDER W GUIDE LEFT (06/03/2024 12:00 AM CDT) Anatomical Region Laterality Modality Breast Left Left Ultrasound Sandra Barragan DO US * SCAN-OPERATIVE/PROCEDURE REPORT (06/03/2024 12:00 AM CDT) Scanner OTHER * SCAN-OPERATIVE/PROCEDURE REPORT (06/03/2024 12:00 AM CDT) Scanner OTHER * US BREAST UNILATERAL LEFT LIMITED (05/09/2024 2:25 PM CDT) Anatomical Region Laterality Modality BREASTS, Breast Left, Breast Right Left Ultrasound Narrative 05/10/2024 2:19 PM CDT As a result of the Century Cures Act, medical imaging exams and procedure reports are released immediately into your electronic medical record. ??You may view this report before your referring provider. ??If you have questions, please contact your health care provider. LEFT BREAST ULTRASOUND 05/09/2024 PLEASE SEE [id number] FOR LEFT DIGITAL ADDITIONAL VIEWS MAMMOGRAM OF SAME DAY. Sandra Barragan DO US * XR MAMMO VIVEK UNI ADDL VIEWS LEFT (05/09/2024 2:11 PM CDT) Anatomical Region Laterality Modality BREASTS, Breast Left Mammography 05/09/2024 4:02 PM CDT Impressions 05/10/2024 2:19 PM CDT Indeterminate 8 millimeter solid nodule LEFT breast 9 o'clock 8 cm from the nipple. RECOMMENDATIONS: Ultrasound-guided core needle biopsy. Results and recommendations discussed with the patient. BI-RADS Category 4: Suspicious Dictated by: Gordon Torres MD @05/09/2024 4:02:27 PM/ana PATIENTS: You will also receive a letter with your examination results in an easy to read format. ??If you have questions about your results, please contact your referring provider. Narrative 05/10/2024 2:19 PM CDT As a result of the Cures Act, medical imaging exams and procedure reports are released immediately into your electronic medical record. ??You may view this report before your referring provider. ??If you have questions, please contact your health care provider. LEFT BREAST MAMMOGRAM DIGITAL ADDITIONAL VIEWS WITH TOMOSYNTHESIS 05/09/2024 ?? LEFT BREAST ULTRASOUND 05/09/2024 CLINICAL HISTORY: LEFT breast mass/asymmetry. COMPARISON: 04/26/2024. TECHNIQUE: Digital LEFT mammogram in 2 projections with computer-aided detection. Tomosynthesis was used in this interpretation. Real-time ultrasound imaging of LEFT breast with imaging documentation. BREAST COMPOSITION: The breasts are heterogeneously dense, which may obscure small masses. ?? FINDINGS: 3D spot compression CC/MLO LEFT breast mammogram images submitted. Persistent irregular density within the medial LEFT breast. No suspicious calcifications. Targeted LEFT breast ultrasound performed at 9 o'clock 8 cm from the nipple. In this location, there is an irregular heterogeneous hypoechoic solid nodule measuring 5 x 4 x 8 millimeters. Sandra Barragan DO MAMMO * XR MAMMO VIVEK BILAT SCREEN (04/26/2024 10:57 AM CDT) Anatomical Region Laterality Modality BREASTS, Breast Left, Breast Right Bilateral Mammography 04/26/2024 4:25 PM CDT Impressions 04/26/2024 4:38 PM CDT LEFT breast asymmetry/mass. RECOMMENDATIONS: Additional mammographic views of the LEFT breast including 3D spot compression cc/MLO. LEFT breast ultrasound may also be required. A member of the health care team will contact the patient to schedule the required additional imaging appointment. BI-RADS Category 0: Incomplete: Need Additional Imaging Evaluation and/or Prior Mammograms for Comparison. Dictated by: Gordon Torres MD @04/26/2024 4:25:05 PM/marycruz PATIENTS: You will also receive a letter with your examination results in an easy to read format. ??If you have questions about your results, please contact your referring provider. Narrative 04/26/2024 4:38 PM CDT As a result of the Cures Act, medical imaging exams and procedure reports are released immediately into your electronic medical record. ??You may view this report before your referring provider. ??If you have questions, please contact your health care provider. BILATERAL BREAST MAMMOGRAM DIGITAL SCREENING WITH COMPUTER-AIDED DETECTION AND TOMOSYNTHESIS 04/26/2024 ?? CLINICAL HISTORY: Routine screening exam. COMPARISON: 04/25/2023, 10/19/2021, 10/07/2020. TECHNIQUE: Digital mammogram in CC and MLO projections including computer-aided detection (CAD). Tomosynthesis was used in this interpretation. BREAST COMPOSITION: The breasts are heterogeneously dense, which may obscure small masses. ?? FINDINGS: RIGHT Breast: No suspicious findings. LEFT Breast: Focal asymmetric density within the medial LEFT breast 9 cm from the nipple. Sandra Barragan DO MAMMO * SCAN-OPERATIVE/PROCEDURE REPORT (03/26/2024 12:00 AM CDT) Scanner OTHER * (ABNORMAL) LIPID PANEL W REFLEX MEASURED LDL (2024 11:49 AM COURSE INSTRUCTOR) CHOLESTEROL,TOTAL 228(H) 100 - 199 mg/dL 2024 9:44 PM COURSE INSTRUCTOR [facility] [employer] Comment: Cholesterol, Total Reference Ranges Desirable <200 mg/dL Borderline 200-239 mg/dL High >=240 mg/dL TRIGLYCERIDES 60 <150 mg/dL 2024 9:44 PM COURSE INSTRUCTOR [place] [employer] HDL CHOLESTEROL 140 >40 mg/dL 9:44 PM COURSE INSTRUCTOR [facility] NON-HDL CHOLESTEROL 88 <145 mg/dl 2024 9:44 PM COURSE INSTRUCTOR [facility] TRA LABORATORY CHOL/HDL RATIO 1.63 <4.50 2024 9:44 PM COURSE INSTRUCTOR [facility] LDL CHOLESTEROL 76 <=130 mg/dL 2024 9:44 PM COURSE INSTRUCTOR [facility] VLDL CHOLESTEROL 12 <=30 mg/dL 2024 9:44 PM COURSE INSTRUCTOR [facility] PROVIDER ORDERED STATUS RANDOM 2024 9:44 PM COURSE INSTRUCTOR [facility] Blood BLOOD SPECIMEN / Unknown Venipuncture / Unknown 2024 11:49 AM COURSE INSTRUCTOR 2024 11:50 AM COURSE INSTRUCTOR Sandra Barragan DO CHEMISTRY [facility] [address] [place] [address], * COLONOSCOPY (05/07/2019 8:00 AM CDT) 05/07/2019 8:00 AM CDT Narrative Transcriptions Brian Haney MD - 05/07/2019 8:43 AM CDT Patient Name: Itzel Sender Procedure Date: 05/07/2019 Gender: Female Date of [...] reponse to care. [facility] and nursing notes for moderate sedation details. Total physician intraservice time was 25 minutes. Brian Haney MD 05/07/2019 8:43:03 AM This report has been signed electronically. Note Initiated On: 05/07/2019 8:00 AM Procedure Code(s): --- Professional --- 09891, Colonoscopy, flexible; with removalof tumor(s), polyp(s), or other lesion(s) bysnare technique Diagnosis Code(s): --- Professional --- Z86.010, Personal history of colonicpolyps D12.5, Benign neoplasm of sigmoid colon CPT copyright 2017 [employer]. All rights reserved. The codes documented in this report are preliminary and upon alarm signal operator reviewmay be revised to meet current compliance requirements. Scope In: 8:11:35 AM Scope Withdrawal Time 0 hours 17 minutes 2 seconds Scope Out: 8:35:07 AM Brian Haney MD PROCEDURE ORD * XR DXA BONE DENSITY 1 SITE AXIAL AND 1 SITE PERIPHERAL (03/07/2018 2:39 PM CDT) Anatomical Region Laterality Modality LUMBAR SPINE Other Sandra Barragan DO DEXA * ANTI HCV [00187.2] (12/28/2015 11:44 AM COURSE INSTRUCTOR) HEPATITIS C ANTIBODY Non-Reacti ve Non-Reacti ve 12/28/2015 4:35 PM COURSE INSTRUCTOR [facility] Blood specimen (specimen) BLOOD SPECIMEN / Unknown Venipuncture / Unknown 12/28/2015 11:44 AM COURSE INSTRUCTOR 12/28/2015 11:44 AM COURSE INSTRUCTOR Narrative [facility] - 12/28/2015 4:35 PM COURSE INSTRUCTOR Antibodies to HCV not detected; does not exclude the possibility of exposure to HCV. Sandra Barragan DO SEND OUTS [facility] 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 Healthcare Directive 03/18/2011 HEALTH CARE DIRECTIVE, [facility], 03/18/11 * Full Code (Latest Code Status on File) Date Activated Date Inactivated Comments 06/22/2015 10:47 AM 06/22/2015 2:40 PM * Full Code Date Activated Date Inactivated Comments 04/02/2012 1:18 PM 04/03/2012 2:11 AM Care Teams Dump Grader Relationship Specialty Start Date End Date Sandra Barragan DO [address] [place] [address] PCP - General Family Practice 11/16/23 [place] [address] [place] [address] Line Up Machine Operator 12/26/14 Ni Juarez MD [address] [facility] [address] [place] [address] Rheumatology Rheumatology 09/03/20
--- NOTE | 2024-06-17 13:45 | CRLHL7_ITS ---
For Patients: As a result of the Century Cures Act, medical imaging exams and procedure reports are released immediately into your electronic medical record. You may view this report before your referring provider. If you have questions, please contact your health care provider. BILATERAL BREAST MRI WITHOUT AND WITH GADOLINIUM CLINICAL HISTORY: History of ultrasound-guided biopsy of a mass at 9 o`clock, 8 cm from the nipple in the LEFT breast showing atypical ductal proliferation suspicious but not diagnostic for invasive carcinoma. INDICATION FOR BREAST MRI: Problem-solving breast MRI. COMPARISON STUDIES: Diagnostic LEFT mammogram and ultrasound 05/09/2024 and screening mammograms 04/25/2023 and 04/26/2024. CONTRAST: 15 mL Dotarem. TECHNIQUE: The patient was positioned prone using a breast coil. Multiple imaging sequences were obtained using 1-1.5 mm thick slices with no gap. The image sequences include T2-weighted STIR in the axial plane, T1-weighted nonfat-saturated gradient echo in the axial plane, pre- and post-contrast T1-weighted FLASH 3D with fat suppression in the axial plane, and T1-weighted FLASH high resolution 3D with fat suppression in the sagittal plane. Image post-processing was performed on a [employer] workstation. Complex 3D rendering including maximum intensity projections (MIPS) and volumetric renderings were obtained to optimize visualization of the extent of pathology and relationship to the nipple, skin, and chest wall. This aids in determining feasibility of breast conservation surgery. Subtraction, multiplanar reconstruction, mean curve determination, and angiogenesis mapping were also performed. The study was technically adequate. FINDINGS: Amount of Fibroglandular Tissue: Heterogeneous fibroglandular tissue. Breast Background Enhancement: Mild. RIGHT Breast: There is no suspicious mass or enhancement. LEFT Breast: In the upper central breast at 12 o`clock middle depth, 7 cm posterior to the nipple there is a 0.7 x 0.7 x 0.6 cm oval mass with irregular margins demonstrating fast initial and washout delayed phase enhancement. In the inner central breast at 9 o`clock, 10 cm posterior to the nipple there is a 0.7 x 0.4 x 0.8 cm irregular mass with spiculated margins demonstrating fast initial and washout delayed phase enhancement. There is associated artifact from the biopsy marking clip at the site of atypical ductal proliferation. Lymph Nodes: No abnormal morphology lymph nodes. IMPRESSIONS AND RECOMMENDATIONS: 1. A 0.7 cm enhancing mass at 12 o`clock in the LEFT breast is suspicious. Targeted LEFT breast ultrasound and possible ultrasound-guided biopsy are recommended. If there is no sonographic correlate an MRI-guided biopsy would be recommended. 2. There is a 0.7 cm enhancing mass at 9 o`clock in the LEFT breast at the site of prior ultrasound-guided biopsy showing atypical ductal proliferation suspicious for invasive carcinoma. Surgical excision is recommended. 3. No MRI evidence of malignancy in the RIGHT breast. 4. No abnormal morphology lymph nodes. BI-RADS Category 4: Suspicious Dictated by Carmenza Grant MD @ 06/20/2024 10:12:27 AM jj/Dictated by: Carmenza Grant MD @ 06/20/2024 10:12:00 AM (Electronically Signed)
== END 2024-06-17 13:16 | disposition home or self-care (01) ==
LOC: MRI 13:15
PROVIDERS: PCP Family Medicine; Visit Provider Surgery
DX: N63.20 Unspecified lump in the left breast, unspecified quadrant (principal); R92.8 Other abnormal and inconclusive findings on diagnostic imaging of breast
CPT/HCPCS: 77049; C8908; C8937; A9575

== ENCOUNTER 2024-06-25 08:01 | Outpatient (CLI) | payer MEDICARE, SELFPAY ==
--- NOTE | 2024-06-25 08:15 | CRLHL7_ITS ---
For Patients: As a result of the Century Cures Act, medical imaging exams and procedure reports are released immediately into your electronic medical record. You may view this report before your referring provider. If you have questions, please contact your health care provider. ULTRASOUND-GUIDED BREAST BIOPSY AND POST-BIOPSY DIGITAL MAMMOGRAM FOR BIOPSY MARKER PLACEMENT CLINICAL HISTORY: Biopsy-proven atypical ductal proliferation suspicious for invasive carcinoma 9 o`clock LEFT breast. Suspicious enhancing lesion 12 o`clock LEFT breast on subsequent MRI. COMPARISON STUDIES: Breast MRI 06/17/2024. TECHNIQUE: Real-time ultrasound with image documentation was used for targeting the breast lesion. Core biopsy specimens were obtained using an automated gun with an 18-gauge biopsy needle. Post-biopsy CC and ML digital mammograms were obtained to document position of the biopsy marker. CONSENT and TIME OUT: The procedure, risks, and alternatives were explained to the patient and a consent was signed. [place] Protocol was followed including pre-procedure verification that relevant information/documentation was available, reviewed and properly matched to the patient; consent accurate and complete; and equipment and supplies available. Time Out was conducted just prior to starting procedure to verify the four required elements: patient identity, correct side/site marked (if applicable), procedure, relevant images/results properly labeled and displayed (if applicable). PROCEDURE: The patient was positioned supine on the ultrasound table. The breast was prepped with ChloraPrep. 5 cc of 1 percent lidocaine used for local anesthesia. Core samples were obtained. A sterile metal biopsy clip was placed percutaneously to sven the lesion position within the breast. The specimens were placed in 10% formalin and sent to the pathology department. Pressure was held on the biopsy site until all bleeding subsided. The skin incision was closed with Steri-Strips. An ice pack was positioned over the biopsy site. Post-biopsy instructions were reviewed with the patient, and a written copy was given to her. LATERALITY: LEFT breast. LESION: Hypoechoic solid lobular nodule measuring 6 x 5 x 8 millimeters at 12 o`clock 7 cm from the nipple. SUSPICION FOR MALIGNANCY: High. NUMBER OF SAMPLES: 5. BIOPSY CLIP SHAPE: HydroMARK. PROXIMITY OF CLIP TO TARGET: Within the lesion. IMPRESSION: Ultrasound-guided breast biopsy. When the pathology report is available, an addendum to this report will be made. ACR not applicable Dictated by Gordon Torres MD @ 06/25/2024 9:28:06 AM jj/Dictated by: Gordon Torres MD @ 06/25/2024 9:28:00 AM (Electronically Signed)
--- NOTE | 2024-06-25 09:00 | CRLHL7_ITS ---
For Patients: As a result of the Century Cures Act, medical imaging exams and procedure reports are released immediately into your electronic medical record. You may view this report before your referring provider. If you have questions, please contact your health care provider. PLEASE SEE ULTRASOUND-GUIDED LEFT BREAST BIOPSY PERFORMED SAME DAY CRL:[email or web address] [email or web address]/Dictated by: Gordon Torres MD @ 06/25/2024 9:28:00 AM (Electronically Signed)
== END 2024-06-25 08:02 | disposition home or self-care (01) ==
LOC: US 08:01
PROVIDERS: PCP Family Medicine; Visit Provider Surgery
DX: N63.20 Unspecified lump in the left breast, unspecified quadrant (principal); C50.912 Malignant neoplasm of unspecified site of left female breast; R92.8 Other abnormal and inconclusive findings on diagnostic imaging of breast
CPT/HCPCS: 19083; 77065; 88305; 88360; 88361; A4648; A4649

== ENCOUNTER 2024-07-09 07:57 | Day surgery (SDC) | payer MEDICARE, SELFPAY ==
--- OUTSIDE RECORDS SUMMARY | 2024-07-09 08:00 | XMS_ITS | Clinical Summary ---
Author Organization [facility] Address [place], [place] [address] Care Team Providers Care Drainman Name Role Phone Pérez Black OD Unavailable [phone] Ni Juarez MD Unavailable [phone] Sandra Barragan DO Primary Care Provider Allergies [...] 09/11/2019 Active albuterol (PROVENTIL) 0.083 % neb solutionIndicatio [...] BOTH EYES AT BEDTIME NEEDED 08/24/2022 Active betamethasone dipropionate 0.05% (DIPROSONE 0.05% OINTMENT) 0.05 % ointmentIndicatio ns:Bug bite, initial encounter Apply topically to affected area(s) two times daily. 45 g 06/15/2023 Active albuterol-ipratro pium (DUONEB) (2.5-0.5 mg) in 3 mL NEBULIZATION solutionIndicatio ns:COPD with chronic bronchitis (HC) Inhale 3 mL via a nebulizer three times daily. 1080 mL 08/11/2023 Active amLODIPine (NORVASC) 5 mg tabletIndications :HTN (hypertension) Take 1 Tablet (5 mg) by mouth once daily. 90 Tablet 2 12/27/2023 Active escitalopram oxalate (LEXAPRO) 20 mg tabletIndications :Persistent postural-perceptu al dizziness Take 1 Tablet (20 mg) by mouth every morning. 90 Tablet 3 2024 Active mupirocin (BACTROBAN OINTMENT) ointmentIndicatio ns:Impetigo Apply topically to affected area(s) three times daily. 15 g 03/18/2024 Active methotrexate (RHEUMATREX) 2.5 mg tabletIndications :Pain in joint, multiple sites TAKE 4 TABLETS BY MOUTH ON MONDAY AND 4 TABLETS ON MONDAY 96 Tablet 4 03/29/2024 Active clonazePAM (KLONOPIN) 0.5 mg tabletIndications :Restless legs syndrome (RLS),Fibromyalgi a TAKE 2 TABLETS BY MOUTH EVERY DAY AT BEDTIME 60 Tablet 5 04/03/2024 Active folic acid 1 mg tabletIndications :Pain in joint, multiple sites TAKE 1 TABLET (1 MG) BY MOUTH ONCE DAILY 90 Tablet 2 05/08/2024 Active levothyroxine (SYNTHROID) 88 mcg tabletIndications :Hypothyroidism (acquired) TAKE 1 TABLET (88 MCG) BY MOUTH BEFORE BREAKFAST 90 Tablet 1 06/01/2024 Active rosuvastatin (CRESTOR) 10 mg tabletIndications :Vertebral artery stenosis, symptomatic, without infarction, bilateral TAKE ONE TABLET BY MOUTH AT BEDTIME 90 Tablet 2 06/19/2024 Active hydroxychloroquin e (PLAQUENIL) 200 mg tabletIndications :Pain in joint, multiple sites TAKE 1 TABLET BY MOUTH ONCE DAILY 90 Tablet 4 06/28/2024 Active Breo Ellipta 100-25 mcg/dose inhalation powderIndications :COPD with chronic bronchitis (HC) INHALE ONE PUFF BY MOUTH EVERY DAY 60 Each 06/28/2024 Active hydrOXYchloroQUIN E (PLAQUENIL) 200 mg tabletIndications :Pain in joint, multiple sites Take 1 Tablet (200 mg) by mouth once daily. 90 Tablet 4 03/29/2023 06/28/20 24 Discontinued rosuvastatin (CRESTOR) 10 mg tabletIndications :Vertebral artery stenosis, symptomatic, without infarction, bilateral Take 1 Tablet (10 mg) by mouth at bedtime. 90 Tablet 4 03/29/2023 06/19/20 24 Discontinued fluticasone furoate-vilantero L (Breo Ellipta) 100-25 mcg/dose inhalation powderIndications :COPD with chronic bronchitis (HC) Inhale 1 Puff by mouth once daily. 60 Each 05/24/2024 06/28/20 24 Discontinued Active Problems Problem Noted Date Diagnosed Date V-tach 07/08/2024 Vertebral artery stenosis, s ymptomatic, without infarction, [...] 09/30/2008 Overview: Previously diagnosis with lupus, At [place] December 2007 changed diagnosis Fibromyalgia 07/22/2008 Unspecified essential hypertension 06/28/2007 Tobacco use disorder 06/28/2007 Restless legs syndrome (RLS) 03/01/2007 Benign neoplasm of colon 03/01/2007 Overview: Colonoscopy 04/2019 polyps, repeat in 5 years Resolved Problems Problem Noted Date Diagnosed Date Resolved Date shelter (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 anticoagulants 09/24/2012 01/02/2013 shelter (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 anticoagulants 04/07/2009 03/07/2018 Fibromyalgia 08/04/2008 08/18/2008 Lupus erythematosus 03/01/2007 09/30/20 08 Overview: 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 Presbyopia 05/31/2006 08/08/2016 Myopia 05/31/2006 02/17/2012 Encounters Date Type Department Care Team Description 07/08/2024 2:00 PM CDT Preop Visit [facility] [address] [place] [address] Kerri Freeman PA Pre-Op Exam 07/08/2024 Travel 07/03/2024 3:45 PM CDT Office Visit [facility] [address] [place] [address] Kaila Graham MD Results (bx results and next steps) 07/02/2024 10:21 AM CDT - 07/02/2024 11:59 PM CDT Hospital Encounter [facility] [place] [address] [place] [address] Sandra Barragan DO Lonetti, Jennifer D, PT 07/02/2024 Travel 07/02/2024 Orders Only [facility] [address] [place] [address] Kaila Graham MD 1 scan: (1-Ord) [facility], US-GUIDED BREAST BIOPSY/CLIP PLACEMENT, 06/25/2024 06/28/2024 Telephone [facility] [address] [place] [address] Sandra Barragan DO Refill Request (hydrOXYchloroQUINE (PLAQUENIL) 200 mg tablet /fluticasone furoate-vilanteroL (Breo Ellipta) 100-25 mcg/dose inhalation powder) 06/25/2024 Orders Only [facility] Scanner 1 scan: (1-Ord) [facility], US GUIDED BREAST BX LT, 06/25/2024 06/25/2024 Orders Only [facility] [address] [place] [address] Sandra Barragan DO 1 scan: (1-Ord) [facility], MAMMO CLIP PLACEMENT LT, 06/25/2024 06/25/2024 Refill [facility] [address] [place] [address] Sandra Barragan DO Refill Request (Hydroxychloroquine, Breo Ellipta) 06/25/2024 Lab Requisition [facility] [phone] Unknown, Doctor 06/19/2024 1:00 PM CDT Office Visit [facility] [address] [place] [address] Kaila Graham MD Consult (Left breast Bx) 06/18/2024 11:07 AM CDT - 06/18/2024 11:59 PM CDT Hospital Encounter [facility] [address] [place] [address] Sandra Barragan DO Lonetti, Jennifer D, PT 06/18/2024 Travel 06/17/2024 Orders Only [facility] Scanner 1 scan: (1-Ord) [facility], CT BREAST BI WO/W CON, 06/17/2024 06/17/2024 Refill [facility] [address] [place] [address] Sandra Barragan DO Refill Request (Rosuvastatin) 06/14/2024 Orders Only [facility] [address] [place] [address] Sandra Barragan DO <No scans attached> 06/13/2024 12:45 PM CDT Ancillary Procedure [facility] [address] [place] [phone] 06/13/2024 Telephone [facility] [address] [place] [phone] Sandra Barragan DO Lung Cancer Screening - CT Result 06/13/2024 Travel 06/11/2024 10:59 AM CDT - 06/11/2024 11:59 PM CDT Hospital Encounter [facility] & Physical [facility] [address] [facility] [address] [place] [address] Sandra Barragan DO Lonetti, Jennifer D, PT 06/11/2024 Travel 06/10/2024 Orders Only [facility] [address] [place] [address] Sandra Barragan, 1 scan: (1-Ord) [facility], US GUIDED BREAST BIOPSY LT, 06/03/2024 06/07/2024 10:35 AM CDT Ancillary Procedure [facility] [address] [place] [phone] 06/07/2024 10:00 AM CDT Office Visit [facility] [address] [phone] Gema Aragon, RESOURCE CONSERVATION SPECIALIST Hand Pain/problem 06/07/2024 Travel 06/04/2024 11:03 AM CDT - 06/04/2024 11:59 PM CDT Hospital Encounter [facility] [id number] [place] [address] [address] [place] [address] Sandra Barragan DO Lonetti, Jennifer D, PT 06/04/2024 Travel 06/03/2024 Orders Only [facility] Scanner 1 scan: (1-Ord) [place], MM CLIP PLACEMENT LT, 06/03/2024 06/03/2024 Orders Only [facility] Scanner 1 scan: (1-Ord) [facility], US GUIDED BREAST BIOPSY, 06/03/2024 06/03/2024 Lab Requisition [facility] [phone] Sandra Barragan DO 05/30/2024 Refill [facility] [address] [place] [address] Sandra Barragan DO Refill Request (Levothyroxine) 05/28/2024 11:03 AM CDT - 05/28/2024 11:59 PM CDT Hospital Encounter [facility] & Physical [facility] [address] [place] [address] Sandra Barragan DO Lonetti, Jennifer D, PT 05/28/2024 Travel 05/22/2024 10:20 AM CDT Office Visit [facility] [address] [place] [address] Claude Méndez MD Musculoskeletal Problem (Follow up back pain, FANG on 03/26/24) 05/22/2024 Refill [facility] [address] [place] [address] Sandra Barragan DO Refill Request (Breo Ellipta) 05/21/2024 9:39 AM CDT - 05/21/2024 11:59 PM CDT Hospital Encounter [facility] & Physical [facility] [address] [place] [address] Sandra Barragan DO Lonetti, Jennifer D, PT 05/21/2024 Travel 05/15/2024 9:17 AM CDT - 05/15/2024 11:59 PM CDT Hospital Encounter [facility] [address] [place] [address] Sandra Barragan DO Lonetti, Jennifer D, PT 05/15/2024 Travel 05/09/2024 2:30 PM CDT Ancillary Procedure [facility] [address] [place] [address] 05/09/2024 2:00 PM CDT Ancillary Procedure [facility] [address] [place] [address] 05/09/2024 Ancillary Orders [facility] [address] [place] [address] Sandra Barragan DO 05/09/2024 Travel 05/07/2024 Refill [facility] [address] [place] [address] Sandra Barragan DO Refill Request (Folic Acid) 05/03/2024 10:03 AM CDT - 05/03/2024 11:59 PM CDT Hospital Encounter [facility] [place] [address] [place] [address] Sandra Barragan DO Lonetti, Jennifer D, PT Weakness; Balance problem 05/03/2024 Orders Only [facility] [address] [place] [address] Sandra Barragan DO <No scans attached> 05/03/2024 Travel 04/26/2024 10:40 AM CDT Ancillary Procedure [facility] [address] [place] [address] 04/26/2024 Travel 04/17/2024 Telephone [facility] [address] [place] [address] Sandra Barragan DO Lab (No Orders) from Last 3 Months Immunizations Name Administration [...] Unspecified 08/09/2010 Influenza, High-dose Inactivated 08/08/2016 Influenza, High-dose Quadriv alent Inactivated 09/11/2023 Influenza, IIV3 (Age >=3 years) 09/09/20 13,08/08/2012,08/15/2011,2009,07/29/2009,09/30/2004 Influenza, IIV4 (Age 6-35 Mos) 09/09/2013 Influenza, Inactivated AIIV4 (Age 65+ Years) Preserv Free 08/10/2022,08/31/2021,07/28/2020 Influenza, Inactivated IIV3 (Age 65+ Years) Preserv Free 08/26/2019,08/13/2018,08/28/2017 Pneumococcal Poly,23-Valent (Pneumovax) 12/28/2015,10/25/2000 Pneumococcal conj 13-Valent (Prevnar 13) 12/26/2014 Td (Age >=7 Years) 11/20/1996 Tdap 06/18/2018,07/11/2007 Family History Medical History Relation Name Comments Other Father d72, [place] Other Mother d76, [place] g heart valve [...] Sign Reading Time Taken Comments Blood Pressure 122/78 07/08/2024 1:54 PM CDT Pulse 104 07/08/2024 1:54 PM CDT Temperature 36.7 ??C (98 ??F) 06/07/2024 10: 08 AM CDT Respiratory Rate 20 03/07/2024 11:1 9 AM CDT Oxygen Saturation 99% 07/08/2024 1:54 PM CDT Inhaled Oxygen Concentration - - Weight 74.3 kg (163 lb 12.8 oz) 07/08/2024 1:54 PM CDT Height 167.6 cm (5' 6) 07/08/2024 1:54 PM CDT Body Mass Index 26.44 07/08/2024 1:54 PM CDT Plan of Treatment Upcoming Encounters Date Type Department Care Team (Late st Contact Info) Description 07/09/2024 8:00 AM CDT Office Visit [facility] [address] [place] [phone] Kaila Graham MD [address] [place] [address] 07/16/2024 10:30 AM CDT Appointment [facility] [place] [address] [facility] [address] [place], [place] [phone] [place] [address] [facility] [address] [place], [place] [phone] 07/24/2024 11:05 AM CDT Office Visit [facility] [address] [place] [address] Sandra Barragan DO [address] [place] [address] Health Maintenance Due Date Last Done Comments Zoster (shingles) series for age 50+ (1 of 2) 01/25/1968 COVID-19 vaccine series (2022- season) 2023 09/25/2023, 08/10/2022, 06/08/2022, Additional history exists Depression screening for age 12+ 03/29/2024 03/29/2023, 09/21/2021, 09/20/2021, Additional history exists Medicare Wellness for age 65+ 03/29/2024, 09/20/2021, 06/22/2020, Additional history exists Colonoscopy through age 75 05/07/2024 05/07/2019, Influenza for age 65+ 07/21/2024 09/11/2023 , 08/10/2022, 08/31/2021, Additional history exists Low Dose CT (for lung CA) ag e 50-80 06/13/2025 06/13/2024, 06/07/2023, 05/13/2022, Additional history exists BMI (ht and wt on same day) for age 18+ 07/08/2025 07/08/2024, 03/29/2023, 09/20/2021, Additional history exists Tetanus booster 06/18/2028 06/18/2018, 06/21, 11/20/1996 Lipids for age 45-75 01/23/2029 2024, 03/29/2023, 10/11/2022, Additional history exists Hepatitis C screening for ag e 18-79 Completed 12/28/2015 Pneumococcal series for age 65+ Completed 12/28/2015, 12/26/2014, 10/25/2000 DEXA/DXA scan for age 65+ Completed 2017, 02/24/2015, 01/29/2013 Tdap Completed 06/18/2018, 07/11/2007 Medical Devices Implanted Type Area Sports Announcer Device Identifier Shelf Expiration Date Model / Serial / Lot Lens Iol 21.0 Wf [id number]. 0 - [id number] Implanted:Qty: 1 on 06/22/2015 by Atilio Mendoza MD at [facility] Right: Eye [employer] 03/19/2020 [id number]. [id number]# / [id number] / Procedures Procedure Name Priority Date/Time Associated Diagnosis Comments LAB TRACKING EVENT Routine 06/25/2024 8: 40 AM CDT PATH BREAST CORE BIOPSY Routine 06/25/2024 8:40 AM CDT BREAST LOCALIZATION WIRE PLACEMENT Routine 06/25/2024 12:00 AM CDT Atypical ductal hyperplasia of left breast XR MAMMO POST CLIP PLCMT LT Routine 06/25/2024 12:00 AM CDT Abnormal mammogram SCAN-OPERATIVE/PROCEDU RE REPORT 06/25/2024 12:00 AM CDT SCAN-MRI INTERPRETATION 06/17/2024 12:[address] CHEST SCREENING LOW DOSE WO CONTRAST [...] ROBERT 06/03/2024 12:00 AM CDT Abnormal mammogram SCAN-OPERATIVE/PROCEDU RE REPORT 06/03/2024 12:00 AM CDT SCAN-OPERATIVE/PROCEDU RE REPORT 06/03/2024 12:00 AM CDT US BREAST UNILATERAL LEFT LIMITED ROBERT 05/09/2024 2:25 PM CDT Abnormal mammogram XR MAMMO VIVEK UNI ADDL VIEWS LEFT ROBERT 05/09/2024 2:11 PM CDT Abnormal mammogram XR MAMMO VIVEK BILAT SCREEN Routine 04/26/2024 10:57 AM CDT Visit for screening mammogram LIPID PANEL W REFLEX MEASURED LDL Routine 2024 11:49 AM ELECTRONIC SALES AND SERVICE TECHNICIAN Screening cholesterol level COLONOSCOPY 05/07/2019 8:00 AM CDT XR DXA BONE DENSITY 1 SITE AXIAL AND 1 SITE PERIPHERAL Routine 03/07/2018 2:39 PM CDT Post-menopausal ANTI HCV Routine 12/28/2015 11:44 AM ELECTRONIC SALES AND SERVICE TECHNICIAN Need for hepatitis C screening test from Last 3 Months or Most Recently Relevant to Health Maintenance Results * LAB TRACKING EVENT (06/25/2024 8:40 AM CDT) Only the most recent of2 resultswithin the time period is included. Other (Other) Client Collect / Unknown 06/25/2024 8:40 AM CDT 06/25/2024 1:38 PM CDT Doctor Unknown LAB BILL ONLY [facility] [address] [place] [address], * PATH BREAST CORE BIOPSY (06/25/2024 8:40 AM CDT) Only the most recent of2 resultswithin the time period is included. Case Report Pathology Report ?Case: [id number] ? Authorizing Provider: ??Unknown, Doctor ?Collected: ? 06/25/2024 0840 ? Ordering Location: ? [facility] ?Received: ?06/25/2024 1510 ? Pathologist: ? Xochilt, Moon Stephenson, ? MD ? Specimen: ?Left Breast Core Ultrasound Biopsy ? 06/27/2024 12:13 PM CDT [facility] Amendment 06/27/2024 - Amendment issued to incorporate ancillary studies. 06/27/2024 12:13 PM CDT [facility] Final Diagnosis A) LEFT BREAST, 12:00, 7 CM FROM NIPPLE, ULTRASOUND-GUIDED CORE BIOPSY: 1. 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 a. Latasha grade: I of III; Windsor score: 5 of 9 ?? b. Angio-lymphatic invasion: Absent ?? c. Associated DCIS: Present ?? d. Subtype: Cribriform ? e. Grade of DCIS: 2 of 3 2. Breast Ancillary Testing: ?a. Hormone Receptors: ?Estrogen receptor: Positive (99%, strong staining) ?Progesterone receptor: Positive (7%, moderate staining) ?b. HER2 by IHC: Negative (1+ by manual morphometry) ?c. Ki-67: 4% by image analysis 06/27/2024 12:13 PM CDT [facility] Amendment electronically signed by Moon Lemon MD on 06/27/2024 at 12:13 PM Comment A) The invasive tumor cells in the current biopsy are morphologically different than the atypical ductal proliferation cells seen on recent left breast biopsy at the 9:00 position (case [id number] reviewed). This is an image-guided breast biopsy. The pathologic findings should be correlated with radiologic and clinical findings prior to treatment decisions. Case seen in consultation with Dr. Appiah. 06/27/2024 12:13 PM CDT [facility] Clinical Information History of benign LEFT breast biopsy at the 2:00 position in 2012 ([id number]). Recently diagnosed LEFT breast atypical ductal proliferation, suspicious but not diagnostic for invasive carcinoma at the 9:00 position, 8 cm from the nipple ([id number]). 9 mm, oval, lobulated, circumscribed, solid and hypoechoic LEFT breast mass at 12:00, 7 cm from the nipple (2.5 cm from prior biopsy with atypical ductal proliferation). 06/27/2024 12:13 PM CDT [facility] Gross Description A) Label: Patient's name and left breast Description: Fibrofatty core biopsies Size: 1.7 x 0.2 x 0.1 cm (aggregate) Ink color: Black The specimen is submitted in toto in 1 cassette(s). Cold ischemic time: Less than 60 minutes, meets current ASCO/CAP guidelines. ?? The specimen was fixed in formalin for a minimum of 6 hours and not longer than 72 hours. EVM 06/25/2024 06/27/2024 12:13 PM CDT [facility] Microscopic Description The final diagnosis is based on microscopic examination of appropriate sections of all specimens. A) The presence of black ink is confirmed on tissue sections. 06/27/2024 12:13 PM CDT [facility] Breast Biomarker Reporting Template BREAST BIOMARKER REPORTING TEMPLATE - A Protocol posted: 11/01/2023 ?? Test(s) Performed: ? Estrogen Receptor (ER) Status: ?Positive (greater than 10% of cells demonstrate nuclear positivity) ? Percentage of Cells with Nuclear Positivity: ?99 % ? Average Intensity of Staining: ?Strong ? Test Type: ?Laboratory-devel oped test ? Primary Antibody: ?SP1 ?? Test(s) Performed: ? Progesterone Receptor (PgR) Status: ?Positive ? Percentage of Cells with Nuclear Positivity: ?7 % ? Average Intensity of Staining: ?Moderate ? Test Type: ?Laboratory-devel oped test ? Primary Antibody: ?16 ?? Test(s) Performed: ? HER2 by Immunohistochemist ry: ?Negative (Score 1+) ? Test Type: ?Laboratory-devel oped test ? Primary Antibody: ?4B5 ?? Test(s) Performed: ?Ki-67 ? Ki-67 Percentage of Positive Nuclei: ?4 % ? Primary Antibody: ?MIB1 ?? Cold Ischemia and Fixation Times: ?Meet requirements specified in latest version of the ASCO / CAP Guidelines ?? Testing Performed on Block Number(s): ?A1 METHODS ?? Fixative: ?Formalin ?? Image Analysis: ?Performed ? Method: ?Aperio morphometric analysis ? Biomarkers Scored by Image Analysis: ?ER ? Biomarkers Scored by Image Analysis: ?PgR ? Biomarkers Scored by Image Analysis: ?Ki-67 ?? Comment(s): ?2,315 nuclei analyzed for Ki67 06/27/2024 12:13 PM [facility] Additional Information Patients with breast cancers that are HER2 IHC 3+ or IHC 2+/JAVIER amplified may be eligible for several therapies that disrupt HER2 signaling pathways. Invasive breast cancers that test 'HER2-negative' (IHC 0, 1+ or 2+/JAVIER not-amplified) are more specifically considered 'HER2-negative for protein overexpression/gen e amplification' since non-overexpressed levels of the HER2 protein may be present in these cases. Patients with breast cancers that are HER2 IHC 1+ or IHC 2+/JAVIER not amplified may be eligible for a treatment that targets non-amplified/non- overexpressed levels of HER2 expression for cytotoxic drug delivery (IHC 0 results do not result in eligibility currently). Interpreted at [facility], Central Laboratory - [address] [place] [address], [place] [address] Immunohistochemist ry controls were reviewed and approved by the pathologist during this examination. 06/27/2024 12:13 PM CDT [facility] LABORATORY Other (Left Breast Core Ultrasound Biopsy) 06/25/2024 8:40 AM CDT 06/25/2024 3:10 PM CDT Doctor Unknown PATHOLOGY/CYTOLOGY [facility] [address] [place] [address], * XR MAMMO POST CLIP PLCMT LT (06/25/2024 12:00 AM CDT) Anatomical Region Laterality Modality BREASTS N/A Mammography Sandra Littlejohnt DO MAMMO * SCAN-OPERATIVE/PROCEDURE REPORT (06/25/2024 12:00 AM CDT) Scanner OTHER * BREAST LOCALIZATION WIRE PLACEMENT (06/25/2024 12:00 AM CDT) Anatomical Region Laterality Modality Other Kaila Graham MD IMAGING * SCAN-MRI INTERPRETATION (06/17/2024 12:00 AM CDT) Anatomical Region Laterality Modality Other Scanner OTHER * CT CHEST SCREENING LOW DOSE WO [...] DOSE LUNG CANCER SCREENING CT CHEST LOCATION: [facility] DATE: 06/13/2024 INDICATION: Lung cancer screening. History [...] DOSE LUNG CANCER SCREENING CT CHEST LOCATION: [facility] DATE: 06/13/2024 INDICATION: Lung cancer screening. History [...] Low-dose CT chest in 6 months. Sandra Ochoa Yung DO CT * XR HAND 3 VIEWS [...] EXAM: XR HAND 3 VIEWS LEFT LOCATION: [facility] DATE: 06/07/2024 INDICATION: Pain after injury COMPARISON: None. Procedure Note Obey Schultz MD - 06/07/2024 For Patients: As a result of the Cures Act, medical imagingexams and procedure reports are released immediately into your electronicmedical record. You may view this report before your referring provider.If you have questions, please contact your health care provider. EXAM: XR HAND 3 VIEWS LEFT LOCATION: [facility] DATE: 06/07/2024 INDICATION: Pain after injury COMPARISON: None. IMPRESSION: Degenerative change at the STT joint and first CMC joint. Degenerativechange at the first MCP joint. Marginal negative ulnar variance. Gema Aragon NP GENERAL IMAGING * US BIOPSY BREAST NEEDLE W HARJINDER [...] provider. LEFT BREAST ULTRASOUND 05/09/2024 PLEASE SEE [id number] FOR LEFT DIGITAL ADDITIONAL VIEWS MAMMOGRAM OF [...] Dictated by: Gordon Torres MD @04/26/2024 4:25:05 PM/[place] PATIENTS: You will also receive a letter with your examination results in an easy to read format. ??If you have questions about your results, please contact your referring provider. Narrative 04/26/2024 4:38 PM CDT As a result of the 21st Century Cures Act, medical imaging exams and [...] the nipple. Sandra Barragan DO MAMMO * (ABNORMAL) LIPID PANEL W REFLEX MEASURED LDL (2024 11:49 AM ELECTRONIC SALES AND SERVICE TECHNICIAN) CHOLESTEROL,TOTAL 228(H) 100 - 199 mg/dL 2024 9:44 PM ELECTRONIC SALES AND SERVICE TECHNICIAN [facility] Comment: Cholesterol, Total Reference Ranges Desirable <200 mg/dL Borderline 200-239 mg/dL High >=240 mg/dL TRIGLYCERIDES 60 <150 mg/dL 2024 9:44 PM ELECTRONIC SALES AND SERVICE TECHNICIAN [facility] HDL CHOLESTEROL 140 >40 mg/dL 9:44 PM ELECTRONIC SALES AND SERVICE TECHNICIAN [facility] TR[facility] LAB[facility]ORY NON-HDL CHOLESTEROL 88 <145 mg/dl 2024 9:44 PM ELECTRONIC SALES AND SERVICE TECHNICIAN [facility] [facility] CHOL/HDL RATIO 1.63 <4.50 2024 9:44 PM ELECTRONIC SALES AND SERVICE TECHNICIAN [facility] LDL CHOLESTEROL 76 <=130 mg/dL 2024 9:44 PM ELECTRONIC SALES AND SERVICE TECHNICIAN [facility] VLDL CHOLESTEROL 12 <=30 mg/dL 2024 9:44 PM ELECTRONIC SALES AND SERVICE TECHNICIAN [facility] PROVIDER ORDERED STATUS RANDOM 2024 9:44 PM ELECTRONIC SALES AND SERVICE TECHNICIAN [facility] Blood BLOOD SPECIMEN / Unknown Venipuncture / Unknown 2024 11:49 AM ELECTRONIC SALES AND SERVICE TECHNICIAN 2024 11:50 AM ELECTRONIC SALES AND SERVICE TECHNICIAN Sandra Ochoa Yung [facility] [address] [place] [address], * COLONOSCOPY (05/07/2019 8:00 AM CDT) 05/07/2019 8:00 AM CDT Narrative Transcriptions Brian Haney MD - 05/07/2019 8:43 AM CDT Patient Name: tIzel Sahni Procedure Date: 05/07/2019 Gender: Female Date [...] reponse to care. [facility] and nursing notes for moderate sedation details. Total physician intraservice time was 25 minutes. Brian Haney MD 05/07/2019 8:43:03 AM This report has been signed electronically. Note Initiated On: 05/07/2019 8:00 AM Procedure Code(s): --- Professional --- 31083, Colonoscopy, flexible; with removalof tumor(s), polyp(s), or other lesion(s) bysnare technique Diagnosis Code(s): --- Professional --- Z86.010, Personal history of colonicpolyps D12.5, Benign neoplasm of sigmoid colon CPT copyright 2017 [employer]. All rights reserved. The codes documented in this report are preliminary and upon mine technician reviewmay be revised to meet current compliance requirements. Scope In: 8:11:35 AM Scope Withdrawal Time 0 hours 17 minutes 2 seconds Scope Out: 8:35:07 AM Brian Haney MD PROCEDURE ORD * XR DXA BONE DENSITY 1 SITE AXIAL AND 1 SITE PERIPHERAL (03/07/2018 2:39 PM CDT) Anatomical Region Laterality Modality LUMBAR SPINE Other Sandra Barragan DO DEXA * ANTI HCV [20925.2] (12/28/2015 11:44 AM ELECTRONIC SALES AND SERVICE TECHNICIAN) HEPATITIS C ANTIBODY Non-Reacti ve Non-Reacti ve 12/28/2015 4:35 PM ELECTRONIC SALES AND SERVICE TECHNICIAN [employer] [facility] Blood specimen (specimen) BLOOD SPECIMEN / Unknown Venipuncture / Unknown 12/28/2015 11:44 AM ELECTRONIC SALES AND SERVICE TECHNICIAN 12/28/2015 11:44 AM ELECTRONIC SALES AND SERVICE TECHNICIAN Narrative [facility] - 12/28/2015 4:35 PM ELECTRONIC SALES AND SERVICE TECHNICIAN Antibodies to HCV not detected; does not exclude the possibility of exposure to HCV. Sandra Barragan DO SEND OUTS [facility] 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 Healthcare Directive 03/18/2011 HEALTH CARE DIRECTIVE, [facility], 03/18/11 * Full Code (Latest Code Status on File) Date Activated Date Inactivated Comments 06/22/2015 10:47 AM 06/22/2015 2:40 PM * Full Code Date Activated Date Inactivated Comments 04/02/2012 1:18 PM 04/03/2012 2:11 AM Care Teams Drainman Relationship Specialty Start Date End Date Sandra [place] [address] PCP - General Family Practice 11/16/23 [place] [address] [place] [address] Instructor Apparel Manufacture 12/26/14 Ni Juarez MD [address] [facility] [address] [place] [address] Rheumatology Rheumatology 09/03/20
[2024-07-09] MEDS: LACTATED RINGERS 1000 ML 1,000 ML 100 ML IV (08:15)
[2024-07-09] MEDS: SODIUM CHLORIDE 0.9 % (FLUSH) 10 ML SYRINGE IVF (08:15)
[2024-07-09 08:21] VITALS: BP 145/88; PULSE 77; RESP 16; TEMP 36.6; O2SAT 96; BMI 26.3
--- NOTE | 2024-07-09 09:15 | CRLHL7_ITS ---
For Patients: As a result of the Cures Act, medical imaging exams and procedure reports are released immediately into your electronic medical record. You may view this report before your referring provider. If you have questions, please contact your health care provider. 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 LATERALITY: LEFT breast. LESION: 8 mm hypoechoic solid nodule 12 o`clock 7 cm from the nipple, biopsy-proven invasive ductal carcinoma. This contains a HydroMARK clip. Solid nodule measuring 8 millimeters 9 o`clock 8 cm from the nipple representing atypical ductal hyperplasia. This contains an oval clip. LOCALIZATION WIRE: Kurtosyspans hookwire x2. TECHNIQUE: The localization wire was placed using real-time ultrasound guidance with image documentation. Cranial-caudal and medial-lateral digital mammograms were obtained after localization wire placement. CONSENT and TIME OUT: The procedure, risks, and alternatives were explained to the patient and a consent was signed. [place] Protocol was followed including pre-procedure verification that relevant information/documentation was available, reviewed and properly matched to the patient; consent accurate and complete; and equipment and supplies available. Time Out was conducted just prior to starting procedure to verify the four required elements: patient identity, correct side/site marked (if applicable), procedure, relevant images/results properly labeled and displayed (if applicable). PROCEDURE: For each procedure, the skin was prepped with ChloraPrep and 6 cc of 1% lidocaine was injected for local anesthesia. The localization wire was placed within or near the targeted breast lesion using ultrasound guidance. The patient tolerated the procedure well. PROXIMITY OF WIRE TO LESION: The wires are located immediately adjacent to each clip. IMPRESSION: Successful breast wire localization x2. ACR not applicable Dictated by Gordon Torres MD @ 07/09/2024 10:43:10 AM jj/Dictated by: Gordon Torres MD @ 07/09/2024 10:43:00 AM (Electronically Signed)
--- NOTE | 2024-07-09 10:00 | CRLHL7_ITS ---
For Patients: As a result of the Century Cures Act, medical imaging exams and procedure reports are released immediately into your electronic medical record. You may view this report before your referring provider. If you have questions, please contact your health care provider. PLEASE SEE ULTRASOUND-GUIDED LEFT BREAST WIRE LOCALIZATION X 2 PERFORMED TODAY CRL:[email or web address] westfall/Dictated by: Gordon Torres MD @ 07/09/2024 10:43:00 AM (Electronically Signed)
--- NOTE | 2024-07-09 10:45 | W.ANESCHARGE ---
Anesthesia Charges Start Date/Time Anesthesia Start Date: 07/09/24 Anesthesia Start Time: 10:38 Stop Date/Time Anesthesia Stop Date: 07/09/24 Anesthesia Stop Time: 12:33 Summary Extremes of Age - Over 70 or under 1: MDA
[2024-07-09] MEDS: CEFAZOLIN 2 GM INJ IVP (10:50)
--- NOTE | 2024-07-09 10:58 | P.ANES_ITS ---
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
--- NOTE | 2024-07-09 11:23 | CRLHL7_ITS ---
For Patients: As a result of the Cures Act, medical imaging exams and procedure reports are released immediately into your electronic medical record. You may view this report before your referring provider. If you have questions, please contact your health care provider. LEFT BREAST SPECIMEN RADIOGRAPH CLINICAL HISTORY: Atypical ductal hyperplasia, excision. COMPARISON: 05/09/2024. FINDINGS: Two views of the LEFT breast specimen submitted. The specimen contains the previously biopsied ADH lesion with a biopsy clip. Localization wire is present. IMPRESSION: The specimen contains the previously biopsied ADH lesion with biopsy clip and localization wire. ACR not applicable Dictated by Gordon Torres MD @ 07/09/2024 11:48:56 AM jj/Dictated by: Gordon Torres MD @ 07/09/2024 11:49:00 AM (Electronically Signed)
--- NOTE | 2024-07-09 11:24 | CRLHL7_ITS ---
For Patients: As a result of the Cures Act, medical imaging exams and procedure reports are released immediately into your electronic medical record. You may view this report before your referring provider. If you have questions, please contact your health care provider. LEFT BREAST SPECIMEN RADIOGRAPH CLINICAL HISTORY: Invasive ductal carcinoma, grade I/III. COMPARISON: 05/09/2024. FINDINGS: Two views of the LEFT breast specimen submitted. The specimen contains the biopsied nodule along with the HydroMARK clip and localization wire. IMPRESSION: Specimen contains the biopsied invasive ductal carcinoma lesion along with the HydroMARK clip and localization wire. ACR not applicable Dictated by Gordon Torres MD @ 07/09/2024 11:53:05 AM jj/Dictated by: Gordon Torres MD @ 07/09/2024 11:53:00 AM (Electronically Signed)
[2024-07-09] MEDS: BUPIVACAINE 0.25% 30 ML INJECTION (12:00)
[2024-07-09] MEDS: LIDOCAINE 1% MDV 20 ML INJECTION (12:00)
[2024-07-09 12:30] VITALS: BP 128/81; PULSE 77; RESP 16; TEMP 36.4; O2SAT 96
--- NOTE | 2024-07-09 12:34 | P.ANES_ITS ---
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
[2024-07-09 12:45] VITALS: BP 146/87; PULSE 67; RESP 16; O2SAT 95
[2024-07-09 13:00] VITALS: BP 150/83; PULSE 64; RESP 16; O2SAT 97
--- NOTE | 2024-07-09 13:11 | P.GSOP_ITS ---
Operative Note Date of procedure: 07/09/24 Pre-op diagnosis: 1. Invasive ductal carcinoma left breast 2. Atypical ductal hyperplasia left breast Post-op diagnosis: Same Type of Procedure: 1. Lumpectomy of left breast, 12:00 o clock position with wire localization 2. Lumpectomy of left breast 9:00 o clock position with wire localization Indications: Patient is a 74-year-old female with a suspicious lesion of the left breast and known invasive ductal carcinoma of the left breast. Please see consultation note for full discussion regarding treatment choices. Risks and benefits of operative intervention were discussed at length with the patient. Risks included but was not limited to: Bleeding, infection, risk of damage to surrounding structures, possible need for additional procedures, seroma, hematoma and postoperative complications such as pneumonia, pulmonary emboli or CO. All questions and concerns were addressed with the patient agreeing to proceed. Procedure Description: Prior to arrival in the operating room, the patient was taken to radiology where two wires were placed in the left breast to localize the previously placed clips. The patient was then brought into the operating room and sedated by Anesthesia. The left breast and axilla were prepped and draped in the usual sterile fashion. Timeout was confirmed. Attention was 1st directed to the lesion located at 9 o clock on the left breast. Local anesthesia was infiltrated around the tip of the wire and a transverse incision made. Using electrocautery, the segment of breast tissue containing the tip of the wire was excised. This was sent for evaluation. Radiology called back and confirmed that the clip and wire were present within the specimen. Pathology then called back and confirmed that the margins were appropriate, but close on the anterior margin. An additional anterior margin of tissue was taken, painted and sent for final pathology. Attention was then directed to the lesion located at 12 o clock on the left breast. Local anesthesia was infiltrated around the tip of the wire and a tr ansverse incision made. Using electrocautery, the segment of breast tissue containing the tip of the wire was excised. This was sent for evaluation. Radiology called back and confirmed that the clip and wire were present within the specimen. Pathology then called back and confirmed that the margins were appropriate, but close on the posterior margin. An additional posterior margin of tissue was taken, painted and sent for final pathology. The wounds were irrigated and all irrigant suctioned from the wound. Additional local anesthesia was infiltrated. The wounds were then closed in layers using absorbable suture, and Dermbond was placed over the wounds. An NAOMI wrap was applied for compression. The patient was awakened without incident and taken to PACU in stable condition. Sponge, needle and instrument counts were correct x3 at the termination of the case. Findings: Wire localized lesions of the left breast, removed with Radiology confirming both clips and wires. Pathology confirming negative margins on frozen evaluation. Anesthesia: MAC Surgeon: Kaila Graham MD Estimated blood loss (mL): 10 Additional Specimen Information: 1. Left breast mass, 9 o clock 2. Left breast mass, 12 o clock 3. Left breast mass 9 o clock, anterior margin 4. Left breast mass 12 o clock, posterior margin Condition: stable Disposition: PACU [place] Node Biopsy for Breast Cancer Operation Performed with Curative Intent: Yes Tracers used to Identify sentinel nodes in the upfront surgery (non-neoadjuvant) setting: Other (with explanation) (Choosing wisely, no sentinel node) and N/A Tracers used to identify sentinel nodes in the neoadjuvant setting: Other (with explanation) (Choosing wisely, no sentinel node) All nodes (colored or non-colored) present at the end of a dye filled lymphatic channel were removed: Not Applicable All significantly radioactive nodes were removed: Not Applicable All palpably suspicious nodes were removed: Not Applicable Biopsy proven positive nodes marked with clips prior to chemotherapy were identified and removed: Not Applicable
== END 2024-07-09 13:28 | disposition home or self-care (01) ==
PROVIDERS: PCP Family Medicine; Visit Provider Surgery
PROC: (CPT 19125; principal; 2024-07-09 11:00)
DX: C50.812 Malignant neoplasm of overlapping sites of left female breast (principal)
CPT/HCPCS: 19125; 19126; 00400; 00404; 19285; 77065; 88305; 88307; 88360; 88361; 99100; C1769; J0665; J0690; J2405; J2704; J3010; J7120

== ENCOUNTER 2024-10-31 12:50 | Outpatient (RCR) | payer MEDICARE, SELFPAY ==
--- NOTE | 2024-08-01 18:57 | ONC.NURNOTE ---
1. Radiation Oncology referral faxed to [facility]. They will call patient to schedule. 2. Dental clearance form shared with patient. She will give to her dentist to complete and return.
--- NOTE | 2024-09-11 08:54 | ONC.NURNOTE ---
Call to patient in follow up to new start Anastrozole. Patient states she is tolerating the medication well. The only side effect she is experiencing is intermittent constipation. In regards to her plan of care, patient declined radiation treatments and is not interested in Zometa infusions. Patient verbalizes understanding for 3 month follow up visit on 10/31.
== END 2025-01-28 23:59 | disposition home or self-care (01) ==
LOC: CCIC 12:50
PROVIDERS: PCP Family Medicine; Visit Provider Physician Assistant
DX: C50.912 Malignant neoplasm of unspecified site of left female breast (principal); Z17.0 Estrogen receptor positive status [ER+]; M85.80 Other specified disorders of bone density and structure, unspecified site; Z79.811 Long term (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 aromatase inhibitors; Z72.0 Tobacco use
CPT/HCPCS: 77080; 99202; 99205; 99214; G0463

== ENCOUNTER 2024-12-24 09:37 | Outpatient (CLI) | payer MEDICARE, SELFPAY | END 2024-12-24 09:38 | disposition home or self-care (01) | LOC: INJ CL 09:39 | PROVIDERS: PCP Family Medicine; Visit Provider Family Medicine | DX: M54.16 Radiculopathy, lumbar region (principal); M51.369 Other intervertebral disc degeneration, lumbar region without mention of lumbar back pain or lower extremity pain | CPT/HCPCS: 62323; J0702; Q9966 ==

== ENCOUNTER 2024-12-25 16:31 | Emergency (ER) | payer MEDICARE, SELFPAY ==
[2024-12-25] VITALS (15 sets, daily range): BP systolic 95–138; BP diastolic 63–80; PULSE 71–79; RESP 16–18; TEMP 36.7; O2SAT 92–99; BMI 25.0
--- OUTSIDE RECORDS SUMMARY | 2024-12-25 16:33 | XMS_ITS | Clinical Summary ---
Author Organization [facility] Address [address] [place] [address] Care Team Providers Care Voucher Clerk Name Role Phone Unavailable Primary Care Provider Unavailabl e Source Comments Patient records contain information from all sites at [facility]. For routine questions regarding patient records, call [phone] during business hours, M-F 8:00 AM - 5:00 PM Central Time. Record requests for emergency care only can be directed to [phone] at any time.[facility] Allergies Active Allergy Reactions Criticality Noted Date Comments Dexamethasone Itching,Other (see comments) Low 08/07/2023 Lidocaine Rash Low 06/08/2010 Neomycin-Polymyxin B-Dexameth Itching,Other (see comments) 04/02/2012 Red, puffy, itchy eye from drops. Polymyxin B Other (see comments) Low 08/01/2024 Sulfa (Sulfonamide Antibiotics) Hives (Reselect Reaction) Low 01/17/2019 Varenicline Other (see comments) 08/11/2023 Medications albuterol 2.5 mg /3 mL nebulizer solution Inhale 2.5 mg every 6 (six) hours as needed. 04/28/2022 Active amLODIPine (Norvasc) 5 mg tablet Take 1 tablet by mouth daily. 07/24/2024 Active amoxicillin (AmoxiL) 500 mg capsule Take 500 mg by mouth every 8 (eight) hours. 09/11/2019 Active amoxicillin-pot clavulanate (Augmentin) 875-125 mg per tablet Take 1 tablet by mouth every 12 (twelve) hours. 10/07/[address] Active [address] tablet Take 1 tablet by mouth daily. 07/11/2022 Active cholecalciferol, vitamin D3, 25 mcg (1,000 Unit) tablet Take 1 tablet by mouth daily. 12/28/2015 Active clonazePAM (KlonoPIN) 0.5 mg tablet Take 2 tablets by mouth at bedtime. 07/24/2024 Active anastrozole (Arimidex) 1 mg tablet Take 1 tablet by mouth daily. 08/02/2024 Active clonazePAM (KlonoPIN) 0.5 mg tablet Take 0.5 mg by mouth 2 (two) times a day. Active escitalopram (Lexapro) 20 mg tablet Take 20 mg by mouth daily. 07/24/2024 Active fluticasone furoate-vilanter oL (Breo Ellipta) 100-25 mcg/actuation inhaler Inhale 1 puff daily. 07/24/2024 Active folic acid 1 mg tablet Take 1,000 mcg by mouth daily. Active levothyroxine 88 mcg tablet Take 88 mcg by mouth daily before morning meal. 07/24/2024 Active methotrexate (TrexalL) 2.5 mg tablet Take 2.5 mg by mouth once a week. 09/23/2008 Active rosuvastatin (Crestor) 10 mg tablet Take 1 tablet by mouth at bedtime. 07/24/2024 Active hydroxychloroqui ne (PlaqueniL) 200 mg tablet Take 1 tablet by mouth daily. 09/23/2008 Active Active Problems Problem Noted Date Diagnosed Date Malignant Neoplasm Of Breast Female Left 024 Cancer Staging:Pathologic stage from 07/09/2024:Stage Unknown(pT1b, pNX, cM0, G1, ER+, TX+, HER2-) - Unsigned Overview (08/02/2024): Multifocal stage IA left breast cancer, ER positive, TX positive, HER2 of 1+ IHC Family History Medical History Relation Name Comments Cancer Neg Hx Social History Tobacco Use Types Packs/Day Years Used Date Smoking Tobacco: Every Day Cigarettes Smokeless Tobacco: Never Alcohol Use Standard Drinks/Week Comments Yes 0 (1 standard drink = 0.6 oz pur e alcohol) [facility] Utilities Answer Date Recorded In the past 12 months has e [employer], gas, oil, or water [employer] threatened to shut off services in your home? No 08/04/2024 Exercise Vital Sign Answer Date Recorde d On average, how many days pe r week do you engage in moderate to strenuous exercise (like a brisk walk)? 1 day 08/04/2024 On average, how many minutes do you engage in exercise at this level? 30 min 08/04/2024 Hunger Vital Sign Answer Date Recorded Within the past 12 months, y ou worried that your food would run out before you got the money to buy more. Never true 08/04/20 Within the past 12 months, t he food you bought just didn't last and you didn't have money to get more. Never true 08/04/2024 PRAPARE - Transportation Answer Date Re corded In the past 12 months, has l ack of transportation kept you from medical appointments or from getting medications? No 07/21 In the past 12 months, has l ack of transportation kept you from meetings, work, or from getting things needed for daily living? No 08/04/2024 Nutrition Answer Date Recorded On average, how many serving s of fruits and vegetables do you eat per day (serving size is equal to 1 cup or approximately the size of a tennis ball)? 0-2 08/04/2024 Dental Answer Date Recorded Dental: Regular Dentist Yes 08/04/20 Employment Answer Date Recorded Employment status Retired 08/04/2024 Housing Stability Answer Date Recorded What is your living situation today? 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 Gender Identity Female 08/04/2024 1:46 PM CDT Sexual Orientation Straight 08/04/2024 1: 46 PM CDT Last Filed Vital Signs Vital Sign Reading Time Taken Comments Blood Pressure 136/82 08/09/2024 10:24 AM CDT Pulse 99 08/09/2024 10:24 AM CDT Temperature 36.8 C (98.3 F) 08/09/2024 10:24 AM CDT Respiratory Rate - - Oxygen Saturation - - Inhaled Oxygen Concentration - - Weight 73.4 kg (161 lb 13.1 oz) 024 10:24 AM CDT Height - - Body Mass Index - - Plan of Treatment Health Maintenance Due Date Last Done Comments CT Colonography 1950 Cologuard 1950 FIT 1950 Hepatitis C Screening 1950 Tobacco Cessation counseling 1950 Zoster Vaccines (1 of 2) 01/25/1968 RSV vaccine - (32-36 weeks) or 60+ years (1 - 1-dose 75+ series) 01/25/2024 COVID-19 Vaccine (6 - 2023- season) 2024 08/10/2022, 06/08/2022, 09/20/2021, Additional history exists Influenza Vaccine (#1) 2024 , 08/10/2022, 08/31/2021, Additional history exists Depression Screening (Annual PHQ-2) 11/20/2024 Fall Risk Screen (Annual) 11/20/2024 Mammogram 05/09/2025 05/09/2024, 05/2024, 04/26/2024, Additional history exists Thyroid Stimulating Hormone (TSH) test for thyroid function 07/24/2025 07/24/2024, 2024, 05/03/2023, Additional history exists Fasting Glucose for Diabetes Screening 07/24/2027 07/24/2024, 2024, 03/29/2023, Additional history exists DTaP,Tdap,and Td Vaccines (3 - Td or Tdap) 06/18/2028 06/18/2018, 07/11/2007 Colonoscopy 05/07/2029 05/07/2019 Colorectal Cancer Screening 05/07/2029 Bone Density Scan (Osteoporosis Screen) Discontinued 02/24/2015 Pneumococcal vaccine (50+ years) Completed 12/28/2015, 12/26/2014, 10/25/2000 HPV Vaccines Aged Out No longer eligi ble based on patient's age to complete this topic IPV Vaccines Aged Out No longer eligi ble based on patient's age to complete this topic Procedures Procedure Name Priority Date/Time Associated Diagnosis Comments OUTSIDE MG MAMMOGRAM Routine 05/09/2024 2:20 PM CDT from Last 3 Months or Most Recently Relevant to Health Maintenance Results * XR MAMMO VIVEK UNI ADDL VIEWS LEFT-Outside Mammogram (05/09/2024 2:20 PM CDT) Narrative [facility] - 08/02/2024 10:44 AM CDT This order has been created and auto-finalized to support the import of outside images. If available, original interpretation can be found on the Media Tab in Chart Review, in Document Viewer, as an image in QREADS or as an Addendum. If a re-interpretation or overread is required please follow defined workflow. us Provider Not In System IMG BI PROCEDURES Final R esult IIMT NA from Last 3 Months or Most Recently Relevant to Health Maintenance Additional Health Concerns Infection Onset Date Last Indicated Protective Environment 08/09/2024 Insurance [facility] Address: [facility] [address] [place] [address]
--- OUTSIDE RECORDS SUMMARY | 2024-12-25 16:33 | XMS_ITS | Continuity of Care Document ---
Author Organization [facility] Address [address] [place] [address] Phone Care Team Providers Care Speech And Language Tutor Name Role Phone Mihaela Ross MD Unavailable Unavailable Procedures Procedure Date Office/outpatient visit,est, low 2009 Office consultation, moderate 0 X-ray exam lwr spine, min 4 views Advance Directives Directive Yes / No Effective Date File Name No Information Encounters Encounter Description Practice Location Reason(s) For Visit Diagnoses Date Provider Providers Copied on Encounter Office/outpat ient visit,est, low [facility], [address] [place] [address], [facility], [place] tel:[phone] [employer] No Information Cody Chairez. [facility], [address] [address], [place], [place], [id number] , [place]. tel:[phone] Referring Provider: Nevaeh Mcmanus, [facility] [address], [place], [address] . tel:[phone] Office consultation, moderate Z [facility], [address] [place] [address], [place], [address], [place] tel:[phone] [employer] No Information Cody Chairez. [facility], [address], [id number] , [place]. tel:[phone] Referring Provider: Nevaeh Mcmanus, [facility] [place], [address] . tel:[phone] Family History Family Member Type Diagnosis Age At Onset No Information Payers Payer name Insurance type Covered green party ID Mai yadav(federico) [id number] Social History Type Description Quantity Date Captured [...]
--- OUTSIDE RECORDS SUMMARY | 2024-12-25 16:33 | XMS_ITS | Clinical Summary ---
Author Organization [facility] Address [place], [place] [address] Care Team Providers Care Medical Insurance Verifier Name Role Phone Pérez Black OD Unavailable [phone] Ni Juarez MD Unavailable [phone] Sandra Barragan DO Primary Care Provider Allergies [...] patch Sulfa (Sulfonamide Antibiotics) Hives 01/17/2019 Medications cholecalciferol (VITAMIN D) 1,000 unit tablet Take 1 tablet by mouth once daily. 0 6 Active amoxicillin (AMOXIL) 500 mg capsule Dental appointments 9 Active albuterol (PROVENTIL) 0.083 % neb solutionIndicati ons:COPD exacerbation (HC) Inhale 3 mL (2.5 mg) via a nebulizer every 6 hours if needed for Cough 1st choice. 180 mL 2 Active aspirin (ECOTRIN) 81 mg enteric coated tabletIndication s:Vertebral artery stenosis, symptomatic, without infarction, bilateral Take 1 Tablet (81 mg) by mouth once daily with a meal. 0 2 Active erythromycin ophthalmic ointment 0.5% APPLY SPARINGLY TO BOTH EYES AT BEDTIME NEEDED 2 Active amLODIPine (NORVASC) 5 mg tabletIndication s:HTN (hypertension) Take 1 Tablet (5 mg) by mouth once daily. 90 Tablet 4 4 Active fluticasone furoate-vilanter oL (Breo Ellipta) 100-25 mcg/dose inhalation powderIndication s:COPD with chronic bronchitis (HC) INHALE ONE PUFF BY MOUTH EVERY DAY 120 Each 3 4 Active clonazePAM (KLONOPIN) 0.5 mg tabletIndication s:Restless legs syndrome (RLS),Fibromyalg ia TAKE 2 TABLETS BY MOUTH EVERY DAY AT BEDTIME 60 Tablet 5 4 Active escitalopram oxalate (LEXAPRO) 20 mg tabletIndication s:Persistent postural-percept ual dizziness Take 1 Tablet (20 mg) by mouth once daily in the morning. 90 Tablet 4 4 Active hydroxychloroqui ne (PLAQUENIL) 200 mg tabletIndication s:Pain in joint, multiple sites Take 1 Tablet (200 mg) by mouth once daily. 90 Tablet 4 4 Active levothyroxine (SYNTHROID) 88 mcg tabletIndication s:Hypothyroidism (acquired) Take 1 Tablet (88 mcg) by mouth before breakfast. 90 Tablet 4 4 Active methotrexate (RHEUMATREX) 2.5 mg tabletIndication s:Pain in joint, multiple sites TAKE 4 TABLETS BY MOUTH ON MONDAY AND 4 TABLETS ON MONDAY 96 Tablet 4 4 Active rosuvastatin (CRESTOR) 10 mg tabletIndication s:Vertebral artery stenosis, symptomatic, without infarction, bilateral Take 1 Tablet (10 mg) by mouth at bedtime. 90 Tablet 4 4 Active albuterol-ipratr opium (DUONEB) (2.5-0.5 mg) in 3 mL NEBULIZATION solutionIndicati ons:COPD with chronic bronchitis (HC) Inhale 3 mL via a nebulizer three times daily. 1080 mL 3 4 Active folic acid 1 mg tabletIndication s:Pain in joint, multiple sites Take 1 Tablet (1 mg) by mouth once daily. 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 09/24/2012 01/02/2013 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 04/07/2009 03/07/2018 Fibromyalgia 08/04/2008 08/18/2008 Lupus erythematosus 03/01/2007 09/30/20 08 Overview (03/01/2007): 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 Presbyopia 05/31/2006 08/08/2016 Myopia 05/31/2006 02/17/2012 Encounters Date Type Department Care Team Description 12/24/2024 10:20 AM SENIOR DENTIST Office Visit [facility] [address] [facility] [address] [facility] [place] [address] Claude Méndez MD Procedure (L4-5 ILESI) 12/22/2024 Travel 12/16/2024 1:45 PM SENIOR DENTIST Ancillary Procedure [facility] [address] [place] [address] 12/16/2024 1:20 PM SENIOR DENTIST Office [facility] [address] [facility] [address] Claude Méndez MD Musculoskeletal Problem (Follow up back pain) 12/16/2024 Travel 12/13/2024 Travel 11/19/2024 Orders Only [facility] [address] [place] [address] Sandra Barragan, <No scans attached> 11/18/2024 11:45 AM SENIOR DENTIST Ancillary Procedure [facility] [address] [facility] [address] 11/18/2024 Travel 11/14/2024 Travel 11/04/2024 10:15 AM SENIOR DENTIST Office Visit [facility] [address] [facility] [address] Sandra Barragan, Follow Up 11/03/2024 Travel 09/24/2024 11:03 AM SENIOR DENTIST - 09/24/2024 11:59 PM SENIOR DENTIST Hospital Encounter [facility] [place] [id number] [place] [address] [address] [place] [address] Sandra Barragan DO Lonetti, Jennifer D, PT 09/24/2024 Travel from Last 3 Months Immunizations Name Administration Dates Next Due Amb Influenza, Inact (High-d ose) (Flu Clinic Only) 08/21/2015,08/12/2014 COVID-19 vaccine (Pfizer-Bio NTech 30mcg/0.3mL) 12YO+ BIVALENT PF, MDV 08/10/2022 COVID-19 vaccine (Pfizer-Bio NTech 30mcg/0.3mL) 12YO+ LUI-SUCROSE PF, MDV 06/08/2022 COVID-19 vaccine (Pfizer-Bio NTech 30mcg/0.3mL) PF, MDV 09/20/2021,02/12/2021,01/22/2021 INFLUENZA, IIV3 PF (AGE >= 6 MO) 08/08/2012,07/22 Influenza A (H1N1), Inactiva merritt (Age >=3 Years) 12/18/2009 Influenza Virus, Unspecified 08/09/2010 Influenza, High-dose Inactivated 08/08/2016 Influenza, High-dose Quadriv alent Inactivated 09/11/2023 Influenza, IIV3 (Age >=3 years) 09/09/20 13,08/08/2012,08/15/2011,08/20,07/29/2009,09/30/2004 Influenza, IIV4 (Age 6-35 Mos) 09/09/2013 Influenza, Inactivated AIIV4 (Age 65+ Years) Preserv Free 08/10/2022,08/31/2021,07/28/2020 Influenza, Inactivated IIV3 (Age 65+ Years) Preserv Free 09/02/2024,08/26/2019,08/13/2018,08/28 Pneumococcal Poly,23-Valent (Pneumovax) 12/28/2015,10/25/2000 Pneumococcal conj 13-Valent (Prevnar 13) 12/26/2014 RSV, Bivalent Vaccine Recons tituted (Abrysvo 120MCG/0.5mL) 07/30/2024 Td (Age >=7 Years) 11/20/1996 Tdap 06/18/2018,07/11/2007 Family History Medical History Relation Name Comments Other Father d72, [place] Other Mother d76, durin g heart valve surgery Other Sister 2 MS Anesthesia Malignant Hyperthermia No Family History Blood Disease No Family History Cancer-breast No Family History Cancer-ovarian No Family History Relation Name Status Comments Father Mother Sister 1 Alive Sister 2 Social History Tobacco Use Types Packs/Day Years Used Date Smoking Tobacco: Every Day Cigarettes 0.5 57.6 Started: 05/19/1967 Smokeless Tobacco: Never Tobacco Cessation:Ready to Q uit: No; Counseling Given: Yes Alcohol Use Standard Drinks/Week Comments Yes 7 (1 standard drink = 0.6 oz pur e alcohol) 1 cocktail nightly PHQ-2 Answer Date Recorded PHQ-2 TOTAL SCORE 0 07/24/2024 Social Connections Answer Date Recorded Do you often feel lonely or isolated from those around you? 0 11/03/2024 Alcohol Use Answer Date Recorded How often do you have a drink containing alcohol ? 4 04/28/2022 How many drinks containing a lcohol do you have on a typical day when you are drinking? 0 04/28/2022 How often do you have five or more drinks on one occasion? 0 04/28/2022 Financial Resource Strain Answer Date R ecorded Difficulty of Paying Living Expenses 3 11/03/2024 Difficulty of Paying Living Expenses Not on file 11/03/2024 Food Insecurity Answer Date Recorded Do you worry your food will run out before you are able to buy more? 1 11/03/2024 Transportation Needs Answer Date Record ed Does lack of transportation keep you from medica l appointments? 1 11/03/2024 Does lack of transportation keep you from work, meetings or getting things that you need? 1 11/03/2024 Housing Stability Answer Date Recorded What is your housing situation today? 1 11/03/2024 Utilities Answer Date Recorded Do you have trouble paying f or utilities (for example, heat, electricity, water, phone)? 1 11/03/2024 Comments No Sex and Gender Information Value Date Recorded Sex Assigned at Not on file Legal Sex Female 5:24 AM SENIOR DENTIST Gender Identity Not on file Sexual Orientation Not on file Occupation Industry Job Start Date Job End Date Not on file Not on file Not on file Not on file Obstetrics History Para Term AB IAB SAB Ectopic Multiple Livin g Live Births 2 2 2 0 0 0 0 0 2 Date Outcome GA Total Labor Labor/2nd/3rd Weight Sex Type Anes PTL Keke A1 A5 Name Clin Term Term Last Filed Vital Signs Vital Sign Reading Time Taken Comments Blood Pressure 144/86 12/16/2024 1:16 PM SENIOR DENTIST Pulse 96 12/16/2024 1:16 PM SENIOR DENTIST Temperature 36.7 C (98 F) 12/16/2024 1:16 PM SENIOR DENTIST Respiratory Rate 20 03/07/2024 11:19 AM CDT Oxygen Saturation 97% 12/16/2024 1:16 PM SENIOR DENTIST Inhaled Oxygen Concentration - - Weight 71.3 kg (157 lb 3.2 oz) 12/16/2024 1:16 P M SENIOR DENTIST shoes on Height 167.2 cm (5' 5.83) 07/24/2024 11:17 AM C DT Body Mass Index 25.51 07/24/2024 11:17 AM CDT Plan of Treatment Upcoming Encounters Date Type Department Care Team (Late st Contact Info) Description 02/13/2025 11:00 AM CDT Office Visit [facility] [address] [place] [address] Claude Méndez MD [address] [facility] [address] Health Maintenance Due Date Last Done Comments Zoster (shingles) series for age 50+ (1 of 2) 01/25/1968 Colonoscopy through age 75 05/07/2024 05/07/2019, COVID-19 vaccine series ( season) 2024 09/02/2024, 09/25/2023, 08/10/2022, Additional history exists Low Dose CT (for lung CA) ag e 50-80 06/13/2025 06/13/2024, 06/07/2023, 05/13/2022, Additional history exists BMI (ht and wt on same day) for age 18+ 07/24/2025 07/24/2024, 07/08/2024, 03/29/2023, Additional history exists Depression screening for age 12+ 07/25/2025 07/25/2024, 07/24/2024, 03/29/2023, Additional history exists Medicare Wellness for age 65+ 07/25/2025, 03/29/2023, 09/20/2021, Additional history exists Tetanus booster 06/18/2028 06/18/2018, 06/21, 11/20/1996 Lipids for age 45-75 01/23/2029 2024, 03/29/2023, 10/11/2022, Additional history exists Hepatitis C screening for ag e 18-79 Completed 12/28/2015 Pneumococcal series for age 50+ Completed 12/28/2015, 12/26/2014, 10/25/2000 Tdap Completed 06/18/2018, 07/11/2007 RSV vaccine for adults or Completed 07/30/2024 DEXA/DXA scan for age 65+ Completed 2023, 03/07/2018, 02/24/2015, Additional history exists Influenza for age 65+ Completed 09/02/2024 , 09/11/2023, 08/10/2022, Additional history exists Medical Devices Implanted Type Area Cabana Attendant Device Identifier Shelf Expiration Date Model / Serial / Lot Lens Iol 21.0 Wf [id number]. 0 - [id number] Implanted:Qty: 1 on 06/22/2015 by Atilio Mendoza MD at [facility] Right: Eye [employer] 03/19/2020 [id number]. 0# / [id number] / Procedures Procedure Name Priority Date/Time Associated Diagnosis Comments AMB EPIDURAL STEROID INJECTION Routine 12/24/2024 12:00 AM SENIOR DENTIST Lumbar foraminal stenosis Lumbar facet arthropathy Lumbar radiculopathy XR SPINE LUMBAR 2 VIEWS Routine 12/16/2024 2:06 PM SENIOR DENTIST Lumbar foraminal stenosis Lumbar facet arthropathy Lumbar radiculopathy MR HEAD BRAIN WO Routine 11/18/2024 1:43 PM SENIOR DENTIST Persistent postural-perceptual dizziness Vertebral artery stenosis, symptomatic, without infarction, bilateral Weakness Invasive ductal carcinoma of breast, female, left (HC) SCAN-BONE DENSITOMETRY DEXA 08/01/2024 12:[address] CHEST SCREENING LOW DOSE WO CONTRAST Routine 06/13/2024 12:59 PM CDT Encounter for screening for lung cancer Smoker LIPID PANEL W REFLEX MEASURED LDL Routine 2024 11:49 AM SENIOR DENTIST Screening cholesterol level COLONOSCOPY 05/07/2019 8:00 AM CDT ANTI HCV Routine 12/28/2015 11:44 AM SENIOR DENTIST Need for hepatitis C screening test from Last 3 Months or Most Recently Relevant to Health Maintenance Results * AMB EPIDURAL STEROID INJECTION (12/24/2024 12:00 AM SENIOR DENTIST) us Claude Méndez MD NEUROLOGY ORD Final Resu lt * XR SPINE LUMBAR 2 VIEWS (12/16/2024 2:06 PM SENIOR DENTIST) Anatomical Region Laterality Modality LUMBAR SPINE Computed Radiogr aphy 12/16/2024 2:38 PM SENIOR DENTIST Impressions 12/16/2024 2:38 PM SENIOR DENTIST Multilevel degenerative disc disease, not significantly changed. Lower lumbar spine facet degeneration. Dictated by Gordon Torres MD @ 12/16/2024 2:38:34 PM (Electronically Signed) Narrative 12/16/2024 2:38 PM SENIOR DENTIST For Patients: As a result of the Cures Act, medical imaging exams and procedure reports are released immediately into your electronic medical record. You may view this report before your referring provider. If you have questions, please contact your health care provider. INDICATION: Lumbar foraminal stenosis TECHNIQUE: 2-view lumbar spine. COMPARISON: MRI 02/08/2024 FINDINGS: Multilevel discogenic spurring throughout the lumbar spine with disc space narrowing at L3-4 and L4-5. Chronic Schmorl`s node at the superior endplate of L2. No acute fracture. Vascular calcifications. Facet degeneration lower lumbar spine. Postop changes left iliac bone. Procedure Note Gordon Torres MD - 12/16/2024 For Patients: As a result of the Cures Act, medical imagingexams and procedure reports are released immediately into your electronicmedical record. You may view this report before your referring provider.If you have questions, please contact your health care provider. INDICATION: Lumbar foraminal stenosis TECHNIQUE: 2-view lumbar spine. COMPARISON: MRI 02/08/2024 FINDINGS: Multilevel discogenic spurring throughout the lumbar spine with disc spacenarrowing at L3-4 and L4-5. Chronic Schmorl`s node at the superiorendplate of L2. No acute fracture. Vascular calcifications. Facetdegeneration lower lumbar spine. Postop changes left iliac bone. IMPRESSION: Multilevel degenerative disc disease, not significantly changed. Lowerlumbar spine facet degeneration. Dictated by Gordon Torres MD @ 12/16/2024 2:38:34 PM (Electronically Signed) us Claude Méndez MD GENERAL IMAGING Final Resu lt * MR HEAD BRAIN WO (11/18/2024 1:43 PM SENIOR DENTIST) Anatomical Region Laterality Modality BRAIN, HEAD Magnetic Resonan ce 11/18/2024 2:56 PM SENIOR DENTIST Impressions 11/18/2024 2:56 PM SENIOR DENTIST 1. No acute infarction or other acute intracranial pathology. 2. Mild chronic microvascular ischemic changes and moderate generalized parenchymal volume loss. Dictated by Cuco Ribeiro MD @ 11/18/2024 2:56:35 PM (Electronically Signed) Narrative 11/18/2024 2:56 PM SENIOR DENTIST For Patients: As a result of the Cures Act, medical imaging exams and procedure reports are released immediately into your electronic medical record. You may view this report before your referring provider. If you have questions, please contact your health care provider. INDICATION: Persistent dizziness. Weakness. TECHNIQUE: Brain MRI without contrast. COMPARISON: Head CT from 06/28/2022. FINDINGS: No evidence of acute ischemia. No evidence of acute or chronic intracranial blood products. Patchy FLAIR hyperintensities within the supratentorial white matter, typical for chronic microvascular ischemic change. Moderate generalized parenchymal volume loss. No mass effect or herniation. No hydrocephalus or extra-axial collections. The pituitary gland, parasellar structures and optic chiasm are normal. Posterior fossa is normal. All the major intracranial vascular structures demonstrate normal flow-related signal. The orbital contents are normal. No calvarial or skull base marrow replacing process. No obstructive sinus disease. Mild paranasal sinus mucosal thickening. Right- sided mastoid effusion. Procedure Note Cuco Ribeiro MD - 11/18/2024 For Patients: As a result of the Cures Act, medical imagingexams and procedure reports are released immediately into your electronicmedical record. You may view this report before your referring provider.If you have questions, please contact your health care provider. INDICATION: Persistent dizziness. Weakness. TECHNIQUE: Brain MRI without contrast. COMPARISON: Head CT from 06/28/2022. FINDINGS: No evidence of acute ischemia. No evidence of acute or chronicintracranial blood products. Patchy FLAIR hyperintensities within thesupratentorial white matter, typical for chronic microvascular ischemicchange. Moderate generalized parenchymal volume loss. No mass effect orherniation. No hydrocephalus or extra-axial collections. The pituitarygland, parasellar structures and optic chiasm are normal. Posterior fossais normal. All the major intracranial vascular structures demonstratenormal flow-related signal. The orbital contents are normal. No calvarial or skull base marrowreplacing process. No obstructive sinus disease. Mild paranasal sinusmucosal thickening. Right- sided mastoid effusion. IMPRESSION: 1. No acute infarction or other acute intracranial pathology. 2. Mild chronic microvascular ischemic changes and moderate generalizedparenchymal volume loss. Dictated by Cuco Ribeiro MD @ 11/18/2024 2:56:35 PM (Electronically Signed) us Sandra Littlejohnjuarez DO MR Final Resul t * SCAN-BONE DENSITOMETRY DEXA (08/01/2024 12:00 AM CDT) Anatomical Region Laterality Modality Other us Scanner OTHER Final Result * CT CHEST SCREENING LOW DOSE WO CONTRAST (06/13/2024 12:59 PM CDT) Anatomical Region Laterality Modality Computed Tomogra phy 06/13/2024 12:5 9 PM CDT Impressions 06/13/2024 2:06 PM CDT 1. 1.4 cm semisolid nodule in the [...] DOSE LUNG CANCER SCREENING CT CHEST LOCATION: [facility] DATE: 06/13/2024 INDICATION: Lung cancer screening. History [...] result of the Century Cures Act, medical imagingexams and procedure reports are released immediately into your electronicmedical record. You may view this report before your referring provider.If you have questions, please contact your health care provider. EXAM: LOW DOSE LUNG CANCER SCREENING CT CHEST LOCATION: [facility] DATE: 06/13/2024 INDICATION: Lung cancer screening. History [...] in 6 months. Sandra Barragan DO CT Final Resul t * (ABNORMAL) LIPID PANEL W REFLEX MEASURED LDL (2024 11:49 AM SENIOR DENTIST) CHOLESTEROL,TOTAL 228(H) 100 - 199 mg/dL 2024 9:44 PM SENIOR DENTIST [facility] Comment: Cholesterol, Total Reference Ranges Desirable <200 mg/dL Borderline 200-239 mg/dL High >=240 mg/dL TRIGLYCERIDES 60 <150 mg/dL 2024 9:44 PM SENIOR DENTIST [facility] CENTERGenscript TechnologyPARKVIEW [facility] HDL CHOLESTEROL 140 >40 mg/dL 9:44 PM SENIOR DENTIST [facility] NON-HDL CHOLESTEROL 88 <145 mg/dl 2024 9:44 PM SENIOR DENTIST [facility] CHOL/HDL RATIO 1.63 <4.50 2024 9:44 PM SENIOR DENTIST [facility] LDL CHOLESTEROL 76 <=130 mg/dL 2024 9:44 PM SENIOR DENTIST [facility] VLDL CHOLESTEROL 12 <=30 mg/dL 2024 9:44 PM SENIOR DENTIST [facility] PROVIDER ORDERED STATUS RANDOM 2024 9:44 PM SENIOR DENTIST [facility] Blood BLOOD SPECIMEN / Unknown Venipuncture / Unknown 2024 11:49 AM SENIOR DENTIST 2024 11:50 AM SENIOR DENTIST us Sandra Barragan DO CHEMISTRY Final Resul t [facility] [address] [place] [address], [place] * COLONOSCOPY (05/07/2019 8:00 AM CDT) 05/07/2019 [...] reponse to care. [facility] flow[facility] and nursing notes for moderate sedation details. Total physician intraservice time was 25 minutes. Brian Haney MD 05/07/2019 8:43:03 AM This report has been signed electronically. Note Initiated On: 05/07/2019 8:00 AM Procedure Code(s): --- Professional --- 07469, Colonoscopy, flexible; with removalof tumor(s), polyp(s), or other lesion(s) bysnare technique Diagnosis Code(s): --- Professional --- Z86.010, Personal history of colonicpolyps D12.5, Benign neoplasm of sigmoid colon CPT copyright 2017 [employer]. All rights reserved. The codes documented in this report are preliminary and upon recharger reviewmay be revised to meet current compliance requirements. Scope In: 8:11:35 AM Scope Withdrawal Time 0 hours 17 minutes 2 seconds Scope Out: 8:35:07 AM us Brian Haney MD PROCEDURE ORD Final Res ult * ANTI HCV [79325.2] (12/28/2015 11:44 AM SENIOR DENTIST) HEPATITIS C ANTIBODY Non-Reacti ve Non-Reacti ve 12/28/2015 4:35 PM SENIOR DENTIST [facility] Blood specimen (specimen) BLOOD SPECIMEN / Unknown Venipuncture / Unknown 12/28/2015 11:44 AM SENIOR DENTIST 12/28/2015 11:44 AM SENIOR DENTIST Narrative [facility] - 12/28/2015 4:35 PM SENIOR DENTIST Antibodies to HCV not detected; does not exclude the possibility of exposure to HCV. us Sandra Barragan DO SEND OUTS Final Resul t [facility] [address] [place] [address], [place] from Last 3 Months or Most Recently Relevant to Health Maintenance Insurance MEDICARE PART A HB ONLY [facility] MR/MS[facility] MEDICARE PART B HB ONLY Member Subscriber Plan / Payer (Ef fective for All Dates) Name:SendItzel gautam Member ID:[id number] Relation to Subscriber:Self Name:SendItzel gautam Subscriber ID:[id number] Payer ID:Not on file Group ID:Not on file Type:Not on file Address: ATTN: CLAIMS [address] [place] [address] Advance Directives Documents on File Type Date Recorded Patient Rating Examiner Expl anation Healthcare Directive 03/18/2011 HEALTH CARE DIRECTIVE, [facility], 03/18/11 * Full Code (Latest Code Status on File) Date Activated Date Inactivated Comments 06/22/2015 10:47 AM 06/22/2015 2:40 PM * Full Code Date Activated Date Inactivated Comments 04/02/2012 1:18 PM 04/03/2012 2:11 AM Care Teams Medical Insurance Verifier Relationship Specialty Start Date End Date Sandra Barragan DO [address] [place] [address] PCP - General Family Practice 11/16/23 [place] [address] [place] [address] [employer] Super[employer] 2/6/15 Ni Juarez MD [address] [facility] [address] [place] [address] Rheumatology Rheumatology 09/03/20
--- NOTE | 2024-12-25 16:42 | ED.UPPEXIN ---
HPI - Extremity Injury (Upper) General Time Seen by Provider: 16:42 Date Seen: 12/25/24 Chief Complaint: Extremity Pain/Injury, Upper Stated Complaint: Fall, R elbow pain Time Seen by Provider: 12/25/24 16:36 Source: patient, EMS and RN notes reviewed Mode of arrival: EMS Limitations: no limitations History of Present Illness HPI narrative: This 74-year-old female is brought in by EMS from her home where she fell in her garage. She was out in her garage with her walker, heard her groceries being delivered and attempted to turn around in her garage, her walker got hooked done something and the walker and herself fell over. She landed on her right elbow. She denies hitting her head her or any loss of consciousness. EMS did put on a C-spine collar for precautions. Patient admits to 3-4 brandys today but not eating. She did have an epidural steroid injection with Dr. Méndez yesterday for chronic back issues. She still has this chronic back pain and tailbone pain, unchanged. She has only had a few saltine crackers at 3:00 p.m.. She states her last drink was about 3:30 p.m.. She denies any difficulty breathing, no chest pain or chest wall pain, no abdominal pain. Outside of her right elbow hurting, she denies any numbness or tingling in this extremity, her left arm, both of her legs are without any pain. Related Data Home Medications ?Medication ?Instructions ?Recorded ?Confirmed cholecalciferol (vitamin D3) 25 1,000 unit PO DAILY 08/07/23 10/31/24 mcg (1,000 unit) capsule hydroxychloroquine 200 mg tablet 200 mg PO DAILY 08/07/23 10/31/24 levothyroxine 88 mcg tablet 88 mcg PO QAM 08/07/23 10/31/24 methotrexate sodium 2.5 mg tablet 10 mg PO 2XW 08/07/23 10/31/24 rosuvastatin 10 mg tablet 10 mg PO QPM 08/07/23 10/31/24 albuterol sulfate 2.5 mg/3 mL 2.5 mg inhalation Q6-8H PRN 07/05/24 10/31/24 (0.083 %) solution for nebulization amlodipine 5 mg tablet (Norvasc) 5 mg PO DAILY 07/05/24 10/31/24 aspirin 81 mg tablet,delayed 81 mg PO DAILY 07/05/24 10/31/24 release (Ecotrin Low Strength) clonazepam 0.5 mg tablet 1 mg PO HS 07/05/24 10/31/24 escitalopram oxalate 20 mg tablet 20 mg PO DAILY 07/05/24 10/31/24 folic acid 1 mg tablet 1 mg PO DAILY 07/05/24 10/31/24 fluticasone furoate 100 1 inh inhalation QDAY 10/31/24 10/31/24 mcg-vilanterol 25 mcg/dose inhalation powder (Breo Ellipta) Previous Rx's ?Medication ?Instructions ?Recorded anastrozole 1 mg tablet 1 mg PO QDAY #90 tabs 08/01/24 Allergies Allergy/AdvReac Type Severity Reaction Status Date / Time dexamethasone (From Maxitrol) Allergy Mild red, Verified 10/31/24 12:49 puffy, itchy eyes lidocaine Allergy Mild Rash Verified 10/31/24 12:49 neomycin (From Maxitrol) Allergy Mild red, Verified 10/31/24 12:49 puffy, itchy eyes polymyxin B (From Maxitrol) Allergy Mild red, Verified 10/31/24 12:49 puffy, itchy eyes Sulfa (Sulfonamide Allergy Mild Hives Verified 10/31/24 12:49 Antibiotics) varenicline (From Chantix) Allergy Verified 10/31/24 12:49 tegaderm Allergy Uncoded 07/05/24 13:03 Review of Systems Status of ROS: Reports: 6 or more systems reviewed and unremarkable except as noted in History and below [facility] Medical History Cancer of left breast, stage 1, estrogen receptor positive ?C50.912 - Malignant neoplasm of unspecified site of left female breast (ICD-10) ?Z17.0 - Estrogen receptor positive status [ER+] (ICD-10) Fibromyalgia ?M79.7 - Fibromyalgia (ICD-10) Hypertension ?I10 - Essential (primary) hypertension (ICD-10) Controlled substance agreement signed ?Z79.899 - Other long filler cigar roller machine (current) drug therapy (ICD-10) Chronic rheumatic arthritis ?M06.9 - Rheumatoid arthritis, unspecified (ICD-10) Chronic low back pain ?M54.50 - Low back pain, unspecified (ICD-10) ?G89.29 - Other chronic pain (ICD-10) Adjustment disorder with depressed mood ?F43.21 - Adjustment disorder with depressed mood (ICD-10) Surgical History History of bilateral hip arthroplasty ?Z96.643 - Presence of artificial hip joint, bilateral (ICD-10) History of total abdominal hysterectomy ?Z90.710 - Acquired absence of both cervix and uterus (ICD-10) Hx of right cataract extraction ?Z98.41 - Cataract extraction status, right eye (ICD-10) Social History Smoking Status: Current every day smoker What tobacco products do you use: cigarettes Smoking packs per day: 0.5 Smoking cigarettes per day: 10.0 Do you use any of these nicotine containing products: None How often do you have a drink containing alcohol: 2-3 times a week How many standard drinks containing alcohol do you have on a typical day: 5 or 6 How often do you have six or more drinks on one occasion: Weekly AUDIT-C Alcohol total score: 8 Non-prescribed substance use: denies use Caffeine: Yes service: No Exam Const: Vital Signs, click to edit/add: Vital Signs - 24 hr 12/25/24 16:33 12/25/24 16:39 12/25/24 16:40 Temperature 98.1 F Pulse Rate 74 71 Pulse Rate [Pulse Oximeter] 76 Respiratory Rate 18 Blood Pressure 95/66 Blood Pressure [Le ft Upper Arm] 132/77 Pulse Oximetry 98 99 99 12/25/24 16:45 12/25/24 16:46 12/25/24 16:47 Temperature Pulse Rate 71 71 Pulse Rate [Pulse Oximeter] Respiratory Rate Blood Pressure 109/63 Blood Pressure [Le ft Upper Arm] Pulse Oximetry 95 97 97 12/25/24 17:16 12/25/24 17:32 12/25/24 18:01 Temperature Pulse Rate 72 75 71 Pulse Rate [Pulse Oximeter] Respiratory Rate Blood Pressure 106/64 136/80 138/78 Blood Pressure [Le ft Upper Arm] Pulse Oximetry 94 92 95 This 74-year-old female is alert, interactive, no apparent distress. GCS is 15/15. Vitals are reviewed. Pupils equal round reactive, sclera clear, conjugate gaze. She has a C-collar on. She is still able to speak in complete sentences, speech is normal, no slurring. Face atraumatic. Cheeks are flushed. Lungs are clear, no wheezing crackles, good air entry, no anterior chest wall pain. CV regular rate and rhythm, no murmur. Abdomen is soft, nontender, nondistended, no organomegaly. She has no pain throughout her lower extremities or her left upper extremity. She has pain about the elbow area in her right arm, she does state there is tenderness over the lateral epicondyle when I palpate. There is no pain over the shoulder area or down into the mid humerus on palpation of this arm. She has got a good peripheral pulse, normal distal sensation. She really is stating the pain is isolated around the elbow area. She is holding her arm at about a 90 degree angle, it is resting on a pillow with an ice pack on it. Documenting provider has reviewed patient's vital signs: yes Course Course ED Course: Will have her on cardiac monitoring pulse oximetry, given her alcohol use do think we should proceed with head CT and cervical spine imaging. Will also look at her elbow to rule out fracture. Will do full complement of labs. Patient is currently hemodynamically stable. Reevaluation(s) Time of Reevaluation #1: 17:15 Reevaluation #1: She has fractured the olecranon on on her elbow on my preliminary review. Lactate is elevated due to her drinking and lack of probable ingestion of other fluids and food. Will initiate a L of normal saline over 2 hours. Will contact Orthopedics. Time of Reevaluation #2: 18:10 Reevaluation #2: Place long-arm posterior splint without any difficulty. Neurovascular intact. Discussing with patient, she feels that she will be able to go home. She states she has different wheeled walkers, a cane. She does feel that she will be able to navigate her house. Did question her on this and expressed my concern about safety at home. We discussed the need to follow up with Orthopedics and that this is going to be surgical. She knows the Ortho group in town and I will have the number on her discharge to call in the morning. She understands the importance of follow-up and not leaving this arm in a posterior splint without any orthopedic follow-up for this fracture. Did review with her that I do believe that this is likely to be surgical but they will manage this outpatient initially. She seems to understand, does not seem overly intoxicated to me. My a guess is that this patient has some functional intoxication. Of note, during the splinting, could see significant ecchymosis and swelling about the elbow, ecchymosis was more medially. Consultations Consultation #1: Spoke with René Gallardo from Orthopedics. He recommends a posterior splint, follow up with Orthopedics. Will half do see about disposition for this patient and talk to her further. It is likely she will be observed overnight, not sure about her disposition status at this time. Will text René when I know for sure if patient will be in the hospital or going home. We did discuss that she was using a walker earlier, he stated that platform walker might be something that this patient could use. This is not something I can get readily available for her to go home with tonight however. Time: 17:41 Vital Signs Vital signs: Initial Vital Signs Temperature 98.1 F 12/25/24 16:33 Temperature Source Temporal Artery Scan 12/25/24 16:33 Pulse Rate 76 12/25/24 16:33 Respiratory Rate 18 12/25/24 16:33 Blood Pressure 132/77 12/25/24 16:33 Blood Pressure Mean 95 12/25/24 16:33 Blood Pressure Position Sitting 12/25/24 16:33 Pulse Oximetry 98 12/25/24 16:33 Vital Signs Temperature 98.1 F 12/25/24 16:33 Pulse Rate 76 12/25/24 16:33 Respiratory Rate 18 12/25/24 16:33 Blood Pressure 132/77 12/25/24 16:33 Pulse Oximetry 98 12/25/24 16:33 Temperature 98.1 F 12/25/24 16:33 Pulse Rate 71 12/25/24 18:01 Respiratory Rate 18 12/25/24 16:33 Blood Pressure 138/78 12/25/24 18:01 Pulse Oximetry 95 12/25/24 18:01 Medications Administered Medications: Generic Name Dose Route Start Last Admin Trade Name Freq PRN Reason Stop Dose Admin Sodium Chloride 1,000 mls @ 500 mls/hr 12/25/24 17:14 12/25/24 17:19 0.9 % Sodium Chloride 1000 Ml IV 12/25/24 19:13 500 mls/hr .Q2H ASIA Administration MDM - Extremity Injury (Upper) Lab Data Attestation: I reviewed the patient's lab results. Labs: Lab Results 12/25/24 Range/Units 16:58 WBC 9.31 (4.50-11.00) K/uL RBC 4.20 (4.00-5.20) m/uL Hgb 14.6 (12.0-16.0) gm/dL Hct 43.0 (33.0-51.0) % MCV 102 H (80-100) fL MCH 35 H (26-34) pg MCHC 34 (32-36) gm/dL RDW Coeff of Kathya 14.8 (11.5-15.5) % Plt Count 229 (140-440) K/uL Neut % (Auto) 90.5 H (42.0-72.0) % Lymph % (Auto) 4.3 L (20-44) % [place] % (Auto) 5.0 (0.0-11.0) % Eos % (Auto) 0.0 (0.0-7.0) % Baso % (Auto) 0.0 (0.0-3.0) % Neut # (Auto) 8.40 H (1.7-7.0) K/uL Lymph # (Auto) 0.40 L (0.90-2.90) K/uL [place] # (Auto) 0.50 (0.00-0.90) K/UL Eos # (Auto) 0.00 (0.00-0.50) K/uL Baso # (Auto) 0.00 (0.00-0.30) K/uL Abs Immat Gran (auto) 0.02 (0.00-0.30) K/uL Imm/Tot Granulo (auto) 0.2 % Sodium 137 (135-149) mmol/L Potassium 3.9 (3.6-5.1) mmol/L Chloride 102 (96-114) mmol/L Carbon Dioxide 19 L (20-32) mmol/L Anion Gap 16 H (7-15) mEq/L BUN 12 (7-30) mg/dL Creatinine 0.6 (0.5-1.5) mg/dL Estimated Creat Clear 45.50 Estimated GFR 94 ml/min Glucose 121 H (60-115) mg/dL Lactate 5.8 H* (0.5-1.9) mmol/L Calcium 10.0 (8.4-10.6) mg/dL Total Bilirubin 0.5 (0.1-1.5) mg/dL AST 108 H (12-35) U/L ALT 39 H (4-35) U/L Alkaline Phosphatase 84 (40-150) U/L Total Protein 6.9 (6.0-8.3) g/dL Albumin 4.5 (3.3-5.0) g/dL Ethyl Alcohol 0.17 H (0.01-0.03) % Imaging Data CT scan - head: Attestation: I have reviewed the pertinent imaging results. Radiologist's impression: Patient: ALISON SENDER Facility:?[facility] Patient ID:?[id number] Site Patient ID:?[id number]. Site :?1950 Study:?CT-Head W/O-12/25/2024 5:02:40 PM Ordering Physician:Yamilka Donahue Final Report: INDICATION: Fall, alcohol use.. TECHNIQUE: Head CT without contrast. COMPARISON: None. FINDINGS: CSF spaces: Within normal limits for age. Brain parenchyma and extra-axial spaces: There are nonspecific low attenuation white matter changes consistent with chronic microvascular disease. Mild diffuse atrophy. No sign of mass, hemorrhage, or midline shift. Skull base and calvarium: Minimal fluid in the left sphenoid sinus. Otherwise, the visualized paranasal sinuses and mastoid air cells demonstrate no acute or significant findings. The visualized orbits are grossly unremarkable. No skull fractures. IMPRESSION: No acute intracranial process identified. No intracranial hemorrhage identified. Please note that all CT scans at this facility use dose modulation, iterative reconstruction, and/or weight-based dosing when appropriate to reduce radiation dose to as low as reasonably achievable. Dictated by Aric Amador MD @ 12/25/2024 5:09:39 PM (Electronic Signature) CT cervical spine: Attestation: I have reviewed the pertinent imaging results. Radiologist's impression: Patient: ALISON SENDER Facility:?[facility] Patient ID:?[id number] Site Patient ID:?[id number]. Site :?1950 Study:?CT-Spine Cervical W/O-12/25/2024 5:03:04 PM Ordering Physician:Yamilka Donahue Final Report: INDICATION: Fall, ETOH use. TECHNIQUE: CT cervical spine without contrast. COMPARISON: None. FINDINGS: Vertebrae: Alignment is normal. There are no fractures or suspicious bony lesions. Discs and facet joints: There are diffuse degenerative changes in the disc spaces and facet joints. Extraspinal findings: Paraspinous soft tissues are unremarkable. IMPRESSION: 1. No sign of acute injury. 2. Multilevel degenerative spondylosis. Please note that all CT scans at this facility use dose modulation, iterative reconstruction, and/or weight-based dosing when appropriate to reduce radiation dose to as low as reasonably achievable. Dictated by Aric Amador MD @ 12/25/2024 5:11:26 PM (Electronic Signature) XR right elbow: Attestation: I have reviewed the pertinent imaging results. My impression: Have visualized her images, see olecranon process fracture that is displaced. Await Radiology over-read. Radiologist's impression: Patient: ALISON SENDER Facility:?[facility] Patient ID:?[id number] Site Patient ID:?[id number]. Site :?1950 Study:?XRay-Extremity Right ELBOW 3V-12/25/2024 5:17:32 PM Ordering Physician:?Amadou Donahue Final Report: Indication: Fall Technique: Three views of the right elbow Comparison: None Findings/Impression: Displaced olecranon fracture with posterior and superior displacement of the proximal fracture segment by approximately 2 centimeters. No additional fractures or malalignment. Small elbow effusion. No suspicious osseous lesions. Dictated by Chuckie Olvera MD @ 12/25/2024 5:27:56 PM (Electronic Signature) Discharge Plan Discharge Clinical Impression: Fall, Closed olecranon fracture, Alcohol intoxication Patient Disposition: Home, Self-Care Condition: Stable Instructions: Elbow Fracture (ED), Fall Prevention for Older Adults (ED), Alcohol Intoxication (ED) Additional Instructions: You need to leave the splint on and it needs to stay dry. Call the orthopedic office in the morning to get scheduled for a follow-up, phone number is [phone]. It is very important that you get the orthopedic follow-up scheduled for further management and evaluation of this fracture. Recommend that you drink some fluids and eat some food tonight, avoid further alcohol. Can put ice in the elbow area and on the inside of the elbow to help with swelling. Elevate this arm as much as you are able to do so to help decrease swelling. If you are not managing at home, find that you are not safe at home, please return back to the ER. Activity Level: Activity as Tolerated Prescriptions: No Action anastrozole 1 mg tablet 1 mg PO QDAY Qty: 90 3RF fluticasone furoate-vilanterol [Breo Ellipta] 100-25 mcg/dose blister with device 1 inh inhalation QDAY Patient Comments: unknown dose levothyroxine 88 mcg tablet 88 mcg PO QAM methotrexate sodium 2.5 mg tablet 10 mg PO 2XW hydroxychloroquine 200 mg tablet 200 mg PO DAILY rosuvastatin 10 mg tablet 10 mg PO QPM cholecalciferol (vitamin D3) 25 mcg (1,000 unit) capsule 1,000 unit PO DAILY albuterol sulfate 2.5 mg /3 mL (0.083 %) solution for nebulization 2.5 mg inhalation Q6-8H PRN amlodipine [Norvasc] 5 mg tablet 5 mg PO DAILY aspirin [Ecotrin Low Strength] 81 mg tablet,delayed release (DR/EC) 81 mg PO DAILY clonazepam 0.5 mg tablet 1 mg PO HS Patient Comments: TAKE TWO TABLETS BY MOUTH EVERY EVENING AT BEDTIME escitalopram oxalate 20 mg tablet 20 mg PO DAILY Patient Comments: TAKE ONE TABLET BY MOUTH EVERY MORNING folic acid 1 mg tablet 1 mg PO DAILY Patient Comments: TAKE 1 TABLET (1 MG) BY MOUTH ONCE DAILY Follow Up/Referrals: Sandra Barragan DO [Primary Care Provider] - Stand Alone Forms: [facility] Info Instructions
--- NOTE | 2024-12-25 16:46 | CRLHL7_ITS ---
For Patients: As a result of the Cures Act, medical imaging exams and procedure reports are released immediately into your electronic medical record. You may view this report before your referring provider. If you have questions, please contact your health care provider. Indication: Fall Technique: Three views of the right elbow Comparison: None Findings/Impression: Displaced olecranon fracture with posterior and superior displacement of the proximal fracture segment by approximately 2 centimeters. No additional fractures or malalignment. Small elbow effusion. No suspicious osseous lesions. Dictated by Chuckie Olvera MD @ 12/25/2024 5:27:56 PM (Electronically Signed)
--- NOTE | 2024-12-25 16:46 | CRLHL7_ITS ---
For Patients: As a result of the Century Cures Act, medical imaging exams and procedure reports are released immediately into your electronic medical record. You may view this report before your referring provider. If you have questions, please contact your health care provider. INDICATION: Fall, alcohol use.. TECHNIQUE: Head CT without contrast. COMPARISON: None. FINDINGS: CSF spaces: Within normal limits for age. Brain parenchyma and extra-axial spaces: There are nonspecific low attenuation white matter changes consistent with chronic microvascular disease. Mild diffuse atrophy. No sign of mass, hemorrhage, or midline shift. Skull base and calvarium: Minimal fluid in the left sphenoid sinus. Otherwise, the visualized paranasal sinuses and mastoid air cells demonstrate no acute or significant findings. The visualized orbits are grossly unremarkable. No skull fractures. IMPRESSION: No acute intracranial process identified. No intracranial hemorrhage identified. Please note that all CT scans at this facility use dose modulation, iterative reconstruction, and/or weight-based dosing when appropriate to reduce radiation dose to as low as reasonably achievable. Dictated by Aric Amador MD @ 12/25/2024 5:09:39 PM (Electronically Signed)
--- NOTE | 2024-12-25 16:47 | CRLHL7_ITS ---
For Patients: As a result of the Cures Act, medical imaging exams and procedure reports are released immediately into your electronic medical record. You may view this report before your referring provider. If you have questions, please contact your health care provider. INDICATION: Fall, ETOH use. TECHNIQUE: CT cervical spine without contrast. COMPARISON: None. FINDINGS: Vertebrae: Alignment is normal. There are no fractures or suspicious bony lesions. Discs and facet joints: There are diffuse degenerative changes in the disc spaces and facet joints. Extraspinal findings: Paraspinous soft tissues are unremarkable. IMPRESSION: 1. No sign of acute injury. 2. Multilevel degenerative spondylosis. Please note that all CT scans at this facility use dose modulation, iterative reconstruction, and/or weight-based dosing when appropriate to reduce radiation dose to as low as reasonably achievable. Dictated by Aric Amador MD @ 12/25/2024 5:11:26 PM (Electronically Signed)
[2024-12-25 17:02] LABS: Lactate* 5.8 mmol/L (0.5-1.9)
[2024-12-25 17:05] LABS: Hemoglobin* 14.6 gm/dL (12.0-16.0); Immature Granulocytes Abs Auto 0.02 K/uL (0.00-0.30); Immature Granulocytes Pct Auto 0.2 %; Lymphocytes Percent Auto 4.3 % (20-44); Mean Corpuscular HGB Conc 34 gm/dL (32-36); Mean Corpuscular Hemoglobin 35 pg (26-34); Mean Corpuscular Volume 102 fL (80-100); Neutrophils Percent Auto 90.5 % (42.0-72.0); Platelet Count* 229 K/uL (140-440); RDW Coefficient of Variation % 14.8 % (11.5-15.5); White Blood Count* 9.31 K/uL (4.50-11.00)
[2024-12-25 17:11] LABS: Slide Review Reflex No
[2024-12-25] MEDS: 0.9 % SODIUM CHLORIDE 1000 ml 1,000 ML 500 ML IV (17:19)
[2024-12-25 17:25] LABS: Albumin* 4.5 g/dL (3.3-5.0); Chloride* 102 mmol/L (96-114)
[2024-12-25 17:26] LABS: Potassium* 3.9 mmol/L (3.6-5.1); Sodium* 137 mmol/L (135-149)
[2024-12-25 17:28] LABS: Anion Gap 16 mEq/L (7-15); Bilirubin Total* 0.5 mg/dL (0.1-1.5); Carbon Dioxide* 19 mmol/L (20-32); Creatinine* 0.6 mg/dL (0.5-1.5); Estimated Glomerular Filt Rate 94 ml/min
[2024-12-25 17:29] LABS: Alanine Aminotransferase* 39 U/L (4-35); Alkaline Phosphatase* 84 U/L (40-150); Aspartate Amino Transferase* 108 U/L (12-35); Blood Urea Nitrogen* 12 mg/dL (7-30); Glucose* 121 mg/dL (60-115); Total Protein* 6.9 g/dL (6.0-8.3)
--- OUTSIDE RECORDS SUMMARY | 2024-12-25 17:36 | XMS_ITS | Clinical Summary ---
Author Organization [facility] Address [address] [place] [address] Care Team Providers Care Director [employer] Name Role Phone Unavailable Primary Care Provider Unavailabl e Source Comments Patient records contain information from all sites at [facility]. For routine questions regarding patient records, call [phone] during business hours, M-F 8:00 AM - 5:00 PM Central Time. Record requests for emergency care only can be directed to [phone] at any time.[facility] Allergies Active Allergy Reactions Criticality Noted Date [...] from 07/09/2024:Stage Unknown(pT1b, pNX, cM0, G1, ER+, WI+, HER2-) - Unsigned Overview (08/02/2024): Multifocal stage IA left breast cancer, ER positive, WI positive, HER2 of 1+ IHC Family History Medical History Relation Name Comments Cancer Neg Hx Social History Tobacco Use Types Packs/Day Years Used Date Smoking Tobacco: Every Day Cigarettes Smokeless Tobacco: Never Alcohol Use Standard Drinks/Week Comments Yes 0 (1 standard drink = 0.6 oz pur e alcohol) [facility] Utilities Answer Date Recorded In the past 12 months has e [employer], gas, oil, or water [employer] threatened to shut off services in your [...] your living situation today? 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
--- OUTSIDE RECORDS SUMMARY | 2024-12-25 17:36 | XMS_ITS | Continuity of Care Document ---
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 [facility], [address] [address], [place], [place], [id number] , [place]. tel:[phone] Referring Provider: Nevaeh Mcmanus, [facility] [address], [place], [address] . tel:[phone] Office consultation, moderate [facility], [address] [place] [address], [place], [address], [place] tel:[phone] [email or web address] No Information Cody Chairez. [facility], [address], [id number] , [place]. tel:[phone] Referring Provider: Nevaeh Mcmanus, [facility] [place], [address] . tel:[phone] Family History Family Member Type Diagnosis Age At Onset No Information Payers Payer name Insurance type Covered republican ID Mai yadav(federico) [id number] Social History Type Description Quantity Date Captured [...]
--- OUTSIDE RECORDS SUMMARY | 2024-12-25 17:36 | XMS_ITS | Clinical Summary ---
Author Organization [facility] Address [place], [place] [address] Care Team Providers Care Sap Bw Consultant Name Role Phone Pérez Black OD Unavailable [phone] Ni Juarez MD Unavailable [phone] Sandra Barragan DO Primary Care Provider Allergies [...] Overview (09/30/2008): Previously diagnosis with lupus, At [place] December 2007 changed diagnosis Fibromyalgia 07/22/2008 Unspecified essential hypertension 06/28/2007 Tobacco use disorder 06/28/2007 Restless legs syndrome (RLS) 03/01/2007 Benign neoplasm of colon 03/01/2007 Overview (05/08/2019): Colonoscopy 04/2019 polyps, repeat in 5 years Resolved Problems Problem Noted Date Diagnosed Date Resolved Date 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 09/24/2012 01/02/2013 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 04/07/2009 03/07/2018 Fibromyalgia 08/04/2008 08/18/2008 Lupus erythematosus 03/01/2007 09/30/20 08 Overview (03/01/2007): 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 Presbyopia 05/31/2006 08/08/2016 Myopia 05/31/2006 02/17/2012 Encounters Date Type Department Care Team Description 12/24/2024 10:20 AM ADMIN ASST Office Visit [facility] [address] [facility] [place] [address] Claude Méndez MD Procedure (L4-5 ILESI) 12/22/2024 Travel 12/16/2024 1:45 PM ADMIN ASST Ancillary Procedure [facility] [address] [place] [address] 12/16/2024 1:20 PM ADMIN ASST Office Visit [facility] [address] [facility] [address] Claude Méndez MD Musculoskeletal Problem (Follow up back pain) 12/16/2024 Travel 12/13/2024 Travel 11/19/2024 Orders Only [facility] [address] [place] [address] Sandra Barragan, <No scans attached> 11/18/2024 11:45 AM ADMIN ASST Ancillary Procedure [facility] [address] [facility] [address] 11/18/2024 Travel 11/14/2024 Travel 11/04/2024 10:15 AM ADMIN ASST Office Visit [facility] [address] [facility] [address] Sandra Barragan, Follow Up 11/03/2024 Travel 09/24/2024 11:03 AM ADMIN ASST - 09/24/2024 11:59 PM ADMIN ASST Hospital Encounter [facility] [place] [id number] [place] [address] [address] [place] [address] Sandra Barragan DO Lonetti, Jennifer D, PT [...] on file Legal Sex Female 5:24 AM ADMIN ASST Gender Identity Not on file Sexual Orientation [...] Comments Blood Pressure 144/86 12/16/2024 1:16 PM ADMIN ASST Pulse 96 12/16/2024 1:16 PM ADMIN ASST Temperature 36.7 C (98 F) 12/16/2024 1:16 PM ADMIN ASST Respiratory Rate 20 03/07/2024 11:19 AM CDT Oxygen Saturation 97% 12/16/2024 1:16 PM ADMIN ASST Inhaled Oxygen Concentration - - Weight 71.3 kg (157 lb 3.2 oz) 12/16/2024 1:16 P M ADMIN ASST shoes on Height 167.2 cm (5' 5.83) 07/24/2024 11:17 AM C DT Body Mass Index 25.51 07/24/2024 11:17 AM CDT Plan of Treatment Upcoming Encounters Date Type Department Care Team (Late st Contact Info) Description 02/13/2025 11:00 AM CDT Office Visit [facility] [address] [place] [address] Claude Méndez MD [address] [place] [facility] [address] Health Maintenance Due Date Last Done Comments [...] history exists Medical Devices Implanted Type Area Clinical Services Director Device Identifier Shelf Expiration Date Model / Serial / Lot Lens Iol 21.0 Wf [id number]. 0 - [id number] Implanted:Qty: 1 on 06/22/2015 by Atilio Mendoza MD at [facility] Right: Eye [employer] 03/19/2020 [id number]. 0# / [id number] / Procedures Procedure Name Priority Date/Time Associated Diagnosis Comments AMB EPIDURAL STEROID INJECTION Routine 12/24/2024 12:00 AM ADMIN ASST Lumbar foraminal stenosis Lumbar facet arthropathy Lumbar radiculopathy XR SPINE LUMBAR 2 VIEWS Routine 12/16/2024 2:06 PM ADMIN ASST Lumbar foraminal stenosis Lumbar facet arthropathy Lumbar radiculopathy MR HEAD BRAIN WO Routine 11/18/2024 1:43 PM ADMIN ASST Persistent postural-perceptual dizziness Vertebral artery stenosis, symptomatic, without infarction, bilateral Weakness Invasive ductal carcinoma of breast, female, left (HC) SCAN-BONE DENSITOMETRY DEXA 08/01/2024 12:[address] CHEST SCREENING LOW DOSE WO CONTRAST Routine 06/13/2024 12:59 PM CDT Encounter for screening for lung cancer Smoker LIPID PANEL W REFLEX MEASURED LDL Routine 2024 11:49 AM ADMIN ASST Screening cholesterol level COLONOSCOPY 05/07/2019 8:00 AM CDT ANTI HCV Routine 12/28/2015 11:44 AM ADMIN ASST Need for hepatitis C screening test from Last 3 Months or Most Recently Relevant to Health Maintenance Results * AMB EPIDURAL STEROID INJECTION (12/24/2024 12:00 AM ADMIN ASST) us Claude Méndez MD NEUROLOGY ORD Final Resu lt * XR SPINE LUMBAR 2 VIEWS (12/16/2024 2:06 PM ADMIN ASST) Anatomical Region Laterality Modality LUMBAR SPINE Computed Radiogr aphy 12/16/2024 2:38 PM ADMIN ASST Impressions 12/16/2024 2:38 PM ADMIN ASST Multilevel degenerative disc disease, not significantly changed. Lower lumbar spine facet degeneration. Dictated by Gordon Torres MD @ 12/16/2024 2:38:34 PM (Electronically Signed) Narrative 12/16/2024 2:38 PM ADMIN ASST For Patients: As a result of the [...] MR HEAD BRAIN WO (11/18/2024 1:43 PM ADMIN ASST) Anatomical Region Laterality Modality BRAIN, HEAD Magnetic Resonan ce 11/18/2024 2:56 PM ADMIN ASST Impressions 11/18/2024 2:56 PM ADMIN ASST 1. No acute infarction or other acute intracranial pathology. 2. Mild chronic microvascular ischemic changes and moderate generalized parenchymal volume loss. Dictated by Cuco Ribeiro MD @ 11/18/2024 2:56:35 PM (Electronically Signed) Narrative 11/18/2024 2:56 PM ADMIN ASST For Patients: As a result of the [...] DOSE LUNG CANCER SCREENING CT CHEST LOCATION: [facility] DATE: 06/13/2024 INDICATION: Lung cancer [...] DOSE LUNG CANCER SCREENING CT CHEST LOCATION: [facility] DATE: 06/13/2024 INDICATION: Lung cancer [...] W REFLEX MEASURED LDL (2024 11:49 AM ADMIN ASST) CHOLESTEROL,TOTAL 228(H) 100 - 199 mg/dL 2024 9:44 PM ADMIN ASST [facility] Comment: Cholesterol, Total Reference Ranges Desirable <200 mg/dL Borderline 200-239 mg/dL High >=240 mg/dL TRIGLYCERIDES 60 <150 mg/dL 2024 9:44 PM ADMIN ASST [facility] HDL CHOLESTEROL 140 >40 mg/dL 9:44 PM ADMIN ASST [facility] NON-HDL CHOLESTEROL 88 <145 mg/dl 2024 9:44 PM ADMIN ASST [facility] CHOL/HDL RATIO 1.63 <4.50 2024 9:44 PM ADMIN ASST [facility] LDL CHOLESTEROL 76 <=130 mg/dL 2024 9:44 PM ADMIN ASST [facility] VLDL CHOLESTEROL 12 <=30 mg/dL 2024 9:44 PM ADMIN ASST [facility] PROVIDER ORDERED STATUS RANDOM 2024 9:44 PM ADMIN ASST [facility] Blood BLOOD SPECIMEN / Unknown Venipuncture / Unknown 2024 11:49 AM ADMIN ASST 2024 11:50 AM ADMIN ASST us Sandra Barragan DO CHEMISTRY Final Resul t [facility] [address] [place] [address], [place] * COLONOSCOPY (05/07/2019 8:00 AM CDT) [...] reponse to care. [facility] and nursing notes for moderate sedation details. Total physician intraservice time was 25 minutes. Brian Haney MD 05/07/2019 8:43:03 AM This report has been signed electronically. Note Initiated On: 05/07/2019 8:00 AM Procedure Code(s): --- Professional --- 65061, Colonoscopy, flexible; with removalof tumor(s), polyp(s), or other lesion(s) bysnare technique Diagnosis Code(s): --- Professional --- Z86.010, Personal history of colonicpolyps D12.5, Benign neoplasm of sigmoid colon CPT copyright 2017 [employer]. All rights reserved. The codes documented in this report are preliminary and upon human resources benefits coordinator reviewmay be revised to meet current compliance requirements. Scope In: 8:11:35 AM Scope Withdrawal Time 0 hours 17 minutes 2 seconds Scope Out: 8:35:07 AM us Brian Haney MD PROCEDURE ORD Final Res ult * ANTI HCV [13456.2] (12/28/2015 11:44 AM ADMIN ASST) HEPATITIS C ANTIBODY Non-Reacti ve Non-Reacti ve 12/28/2015 4:35 PM ADMIN ASST [facility] Blood specimen (specimen) BLOOD SPECIMEN / Unknown Venipuncture / Unknown 12/28/2015 11:44 AM ADMIN ASST 12/28/2015 11:44 AM ADMIN ASST Narrative [facility] - 12/28/2015 4:35 PM ADMIN ASST Antibodies to HCV not detected; does not exclude the possibility of exposure to HCV. us Sandra Barragan DO SEND OUTS Final Resul t [facility] [address] [place] [address], [place] from Last 3 Months or Most Recently Relevant to Health Maintenance Insurance MEDICARE PART A HB ONLY [facility] MR/MSHO MEDICARE PART B HB ONLY Member Subscriber Plan / Payer (Ef fective for All Dates) Name:SendItzel gautam Member ID:[id number] Relation to Subscriber:Self Name:SendItzel gautam Subscriber ID:[id number] Payer ID:Not on file Group ID:Not on file Type:Not on file Address: ATTN: CLAIMS [address] [place] [address] Advance Directives Documents on File Type Date Recorded Patient Plane Runner Expl anation Healthcare Directive 03/18/2011 HEALTH CARE DIRECTIVE, [facility], 03/18/11 * Full Code (Latest Code Status on File) Date Activated Date Inactivated Comments 06/22/2015 10:47 AM 06/22/2015 2:40 PM * Full Code Date Activated Date Inactivated Comments 04/02/2012 1:18 PM 04/03/2012 2:11 AM Care Teams Sap Bw Consultant Relationship Specialty Start Date End Date Sandra Barragan DO [address] [place] [address] PCP - General Family Practice 11/16/23 [place] [address] [place] [address] Case Operator 2/6/15 Ni Juarez MD [address] [facility] [address] [place] [address] Rheumatology Rheumatology 09/03/20
[2024-12-25 18:14] LABS: Ethanol* 0.17 % (0.01-0.03)
== END 2024-12-25 19:22 | disposition home or self-care (01) ==
PROVIDERS: Emergency Provider Family Medicine; PCP Family Medicine
DX: S52.021A Displaced fracture of olecranon process without intraarticular extension of right ulna, initial encounter for closed fracture (principal); W01.0XXA Fall on same level from slipping, tripping and stumbling without subsequent striking against object, initial encounter; Y92.015 Private garage of single-family (private) house as the place of occurrence of the external cause
CPT/HCPCS: 29105; 36415; 70450; 72125; 73080; 80053; 82077; 83605; 85025; 94761; 99284; J7030

== ENCOUNTER 2024-12-29 17:55 | Inpatient (IN) | payer MEDICARE, SELFPAY ==
[2024-12-29] VITALS (20 sets, daily range): BP systolic 111–156; BP diastolic 76–105; PULSE 67–94; RESP 8–30; TEMP 36.7–36.9; O2SAT 93–100; BMI 25.0; BMI 24.9
--- OUTSIDE RECORDS SUMMARY | 2024-12-29 17:58 | XMS_ITS | Clinical Summary ---
Author Organization [facility] Address [address] [place] [address] Care Team Providers Care Soybean Specialties Cook Name Role Phone Unavailable Primary Care Provider Unavailabl e Source Comments Patient records contain information from all sites at [facility]. For routine questions regarding patient records, call [phone] during business hours, M-F 8:00 AM - 5:00 PM Central Time. Record requests for emergency care only can be directed to [phone] at any time.[facility] Allergies Active Allergy Reactions Criticality Noted Date [...] from 07/09/2024:Stage Unknown(pT1b, pNX, cM0, G1, ER+, KY+, HER2-) - Unsigned Overview (08/02/2024): Multifocal stage IA left breast cancer, ER positive, KY positive, HER2 of 1+ IHC Family History Medical History Relation Name Comments Cancer Neg Hx Social History Tobacco Use Types Packs/Day Years Used Date Smoking Tobacco: Every Day Cigarettes Smokeless Tobacco: Never Alcohol Use Standard Drinks/Week Comments Yes 0 (1 standard drink = 0.6 oz pur e alcohol) [facility] Utilities Answer Date Recorded In the past 12 months has e [place], gas, oil, or water Active-Semi threatened to shut off services in your [...] your living situation today? I have a [facility] place to live 08/04/2024 Comments Unknown Sex and Gender Information Value Date Recorded Sex Assigned at Female 08/04/2024 1:46 PM CDT Legal Sex Female 6:23 PM ACUPRESSURE THERAPIST Gender Identity Female 08/04/2024 1:46 PM CDT [...] Date Last Indicated Protective Environment 08/09/2024 Insurance [facility] Address: [facility] [address] [place] [address]
--- OUTSIDE RECORDS SUMMARY | 2024-12-29 17:58 | XMS_ITS | Continuity of Care Document ---
Author Organization [facility] Address [address] [place] [address] Phone Care Team Providers Care Machinist Mechanic Name Role Phone Mihaela Ross MD Unavailable Unavailable Procedures Procedure Date Office/outpatient visit,est, low 2009 Office consultation, moderate 0 X-ray exam lwr spine, min 4 views Advance Directives Directive Yes / No Effective Date File Name No Information Encounters Encounter Description Practice Location Reason(s) For Visit Diagnoses Date Provider Providers Copied on Encounter Office/outpat ient visit,est, low [facility], [address] [place] [address], [facility], [place] tel:[phone] Verified Person No Information Cody Chairez. [facility], [address] [address], [place], [place], [id number] , [place]. tel:[phone] Referring Provider: Nevaeh Mcmanus, [facility] [address], [place], [address] . tel:[phone] Office consultation, moderate Z [facility], [address] [place] [address], [place], [address], [place] tel:[phone] Verified Person No Information Cody Chairez. [facility], [address], [id number] , [place]. tel:[phone] Referring Provider: Nevaeh Mcmanus, [facility], [address] . tel:[phone] Family History Family Member Type Diagnosis Age At Onset No Information Payers Payer name Insurance type Covered alliance party ID Mai yadav(federico) [id number] Social History Type Description Quantity Date Captured [...]
--- OUTSIDE RECORDS SUMMARY | 2024-12-29 17:58 | XMS_ITS | Continuity of Care Document ---
Author Organization [facility] Address [address] [address] [place] [address] Phone Care Team Providers Care Dedicated Regional Driver Name Role Phone Unavailable Unavailable Unavailable Advance Directives Directive Yes / No Effective Date File Name No Information Encounters Encounter Description Practice Location Reason(s) For Visit Diagnoses Date Provider Providers Copied on Encounter [facility], [address] [address], [place], [place], [id number], [place] tel:[phone] [facility] No Information Jul-2 4200 4 No Information Referring Provider: Marlon Mcmahon MD, [facility] [address] [place], [address]. tel:[phone] Family History Family Member Type Diagnosis Age At Onset No Information Payers Payer name Insurance type Covered constitution party ID Authoriza timarisa(s) [facility] [id number] Social History Type Description Quantity Date Captured Comments Sex Female Smoking Status No Information Chief Complaint And Reason For Visit No [...]
--- OUTSIDE RECORDS SUMMARY | 2024-12-29 17:58 | XMS_ITS | Clinical Summary ---
Author Organization [facility] Address [place], [place] [address] Care Team Providers Care Quality Control Head Name Role Phone Pérez Black OD Unavailable [phone] Ni Juarez MD Unavailable [phone] Sandra Barragan DO Primary Care Provider Allergies [...] Overview (09/30/2008): Previously diagnosis with lupus, At [facility] December 2007 changed diagnosis Fibromyalgia 07/22/2008 Unspecified essential hypertension 06/28/2007 Tobacco use disorder 06/28/2007 Restless legs syndrome (RLS) 03/01/2007 Benign neoplasm of colon 03/01/2007 Overview (05/08/2019): Colonoscopy 04/2019 polyps, repeat in 5 years Resolved Problems Problem Noted Date Diagnosed Date Resolved Date 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 Scanner 1 scan: (1-Ord) [place], CT HEAD/BRAIN WO CON, 12/25/2024 12/25/[address] [facility] Scanner 1 scan: (1-Ord) [facility], XR ELBOW RT MIN 3V, 12/25/2024 12/25/[address] [facility] Scanner 1 scan: (1-Ord) [facility], CERVICAL SPINE WO CON , 12/25/2024 12/24/2024 10:20 AM VICE PROVOST Office Visit [facility] [address] [facility] [place] [address] Claude Méndez MD Procedure (L4-5 ILESI) 12/22/2024 Travel 12/16/2024 1:45 PM VICE PROVOST Ancillary Procedure [facility] [address] [place] [address] 12/16/2024 1:20 PM VICE PROVOST Office Visit [facility] [address] [place] [address] Claude Méndez MD Musculoskeletal Problem (Follow up back pain) 12/16/2024 Travel 12/13/2024 Travel 11/19/2024 Orders Only [facility] [address] [place] [address] Sandra Barragan DO <No scans attached> 11/18/2024 11:45 AM VICE PROVOST Ancillary Procedure [facility] [address] [place] [address] 11/18/2024 Travel 11/14/2024 Travel 11/04/2024 10:15 AM VICE PROVOST Office Visit [facility] [address] [place] [address] Sandra Barragan DO Follow Up 11/03/2024 Travel from Last 3 Months Immunizations Name [...] History Relation Name Comments Other Father d72, [place] Other Mother d76, durin g heart valve [...] on file Legal Sex Female 5:24 AM VICE PROVOST Gender Identity Not on file Sexual Orientation [...] Comments Blood Pressure 144/86 12/16/2024 1:16 PM VICE PROVOST Pulse 96 12/16/2024 1:16 PM VICE PROVOST Temperature 36.7 C (98 F) 12/16/2024 1:16 PM VICE PROVOST Respiratory Rate 20 03/07/2024 11:19 AM CDT Oxygen Saturation 97% 12/16/2024 1:16 PM VICE PROVOST Inhaled Oxygen Concentration - - Weight 71.3 kg (157 lb 3.2 oz) 12/16/2024 1:16 P M VICE PROVOST shoes on Height 167.2 cm (5' 5.83) 07/24/2024 11:17 AM C DT Body Mass Index 25.51 07/24/2024 11:17 AM CDT Plan of Treatment Upcoming Encounters Date Type Department Care Team (Late st Contact Info) Description 12/30/2024 10:25 AM VICE PROVOST Office Visit [facility] [address] [place] [address] [place] [address] [place] [address] 02/13/2025 11:00 AM CDT Office Visit [facility] [address] [place] [address] Claude Méndez MD [address] [place] [address] Health Maintenance Due Date Last Done Comments [...] history exists Medical Devices Implanted Type Area Rodeo Clown Device Identifier Shelf Expiration Date Model / Serial / Lot Lens Iol 21.0 Wf [id number]. [id number] - [id number] Implanted:Qty: 1 on 06/22/2015 by Atilio Mendoza MD at [facility] Right: Eye [employer] 03/19/2020 [id number]. [id number]# / [id number] / Procedures Procedure Name Priority Date/Time Associated Diagnosis Comments SCAN-CT INTERPRETATION 12:00 AM VICE PROVOST SCAN-RADIOLOGY REPORT 12/25/2024 12:00 AM VICE PROVOST SCAN-CT INTERPRETATION 12:00 AM VICE PROVOST AMB EPIDURAL STEROID INJECTION Routine 12/24/2024 12:00 AM VICE PROVOST Lumbar foraminal stenosis Lumbar facet arthropathy Lumbar radiculopathy XR SPINE LUMBAR 2 VIEWS Routine 12/16/2024 2:06 PM VICE PROVOST Lumbar foraminal stenosis Lumbar facet arthropathy Lumbar radiculopathy MR HEAD BRAIN WO Routine 11/18/2024 1:43 PM VICE PROVOST Persistent postural-perceptual dizziness Vertebral artery stenosis, symptomatic, without infarction, bilateral Weakness Invasive ductal carcinoma of breast, female, left (HC) SCAN-BONE DENSITOMETRY DEXA 08/01/2024 12:[address] CHEST SCREENING LOW DOSE WO CONTRAST Routine 06/13/2024 12:59 PM CDT Encounter for screening for lung cancer Smoker LIPID PANEL W REFLEX MEASURED LDL Routine 2024 11:49 AM VICE PROVOST Screening cholesterol level COLONOSCOPY 05/07/2019 8:00 AM CDT ANTI HCV Routine 12/28/2015 11:44 AM VICE PROVOST Need for hepatitis C screening test from Last 3 Months or Most Recently Relevant to Health Maintenance Results * SCAN-RADIOLOGY REPORT (12/25/2024 12:00 AM VICE PROVOST) Anatomical Region Laterality Modality Other us Scanner OTHER Final Result * SCAN-CT INTERPRETATION (12/25/2024 12:00 AM VICE PROVOST) Only the most recent of2 resultswithin the time period is included. Anatomical Region Laterality Modality Other us Scanner OTHER Final Result * AMB EPIDURAL STEROID INJECTION (12/24/2024 12:00 AM VICE PROVOST) us Claude Méndez MD NEUROLOGY ORD Final Resu lt * XR SPINE LUMBAR 2 VIEWS (12/16/2024 2:06 PM VICE PROVOST) Anatomical Region Laterality Modality LUMBAR SPINE Computed Radiogr aphy 12/16/2024 2:38 PM VICE PROVOST Impressions 12/16/2024 2:38 PM VICE PROVOST Multilevel degenerative disc disease, not significantly changed. Lower lumbar spine facet degeneration. Dictated by Gordon Torres MD @ 12/16/2024 2:38:34 PM (Electronically Signed) Narrative 12/16/2024 2:38 PM VICE PROVOST For Patients: As a result of the [...] Postop changes left iliac bone. Procedure Note Melissa, Gordon Claude, MD - 12/16/2024 For Patients: As a [...] MR HEAD BRAIN WO (11/18/2024 1:43 PM VICE PROVOST) Anatomical Region Laterality Modality BRAIN, HEAD Magnetic Resonan ce 11/18/2024 2:56 PM VICE PROVOST Impressions 11/18/2024 2:56 PM VICE PROVOST 1. No acute infarction or other acute intracranial pathology. 2. Mild chronic microvascular ischemic changes and moderate generalized parenchymal volume loss. Dictated by Cuco Ribeiro MD @ 11/18/2024 2:56:35 PM (Electronically Signed) Narrative 11/18/2024 2:56 PM VICE PROVOST For Patients: As a result of the [...] 11/18/2024 2:56:35 PM (Electronically Signed) us Sandra Barragan DO MR Final Resul t * SCAN-BONE [...] DOSE LUNG CANCER SCREENING CT CHEST LOCATION: [facility] DATE: 06/13/2024 INDICATION: Lung cancer [...] DOSE LUNG CANCER SCREENING CT CHEST LOCATION: [facility] DATE: 06/13/2024 INDICATION: Lung cancer [...] RECOMMENDATION: Low-dose CT chest in 6 months. us Sandra Littlejohnt DO CT Final Resul t * (ABNORMAL) LIPID PANEL W REFLEX MEASURED LDL (2024 11:49 AM VICE PROVOST) CHOLESTEROL,TOTAL 228(H) 100 - 199 mg/dL 2024 9:44 PM VICE PROVOST [facility] [employer] [facility] Comment: Cholesterol, Total Reference Ranges Desirable <200 mg/dL Borderline 200-239 mg/dL High >=240 mg/dL TRIGLYCERIDES 60 <150 mg/dL 2024 9:44 PM VICE PROVOST [facility] [employer] [facility] HDL CHOLESTEROL 140 >40 mg/dL 9:44 PM VICE PROVOST [facility] NON-HDL CHOLESTEROL 88 <145 mg/dl 2024 9:44 PM VICE PROVOST [facility] CHOL/HDL RATIO 1.63 <4.50 2024 9:44 PM VICE PROVOST [facility] LDL CHOLESTEROL 76 <=130 mg/dL 2024 9:44 PM VICE PROVOST [facility] VLDL CHOLESTEROL 12 <=30 mg/dL 2024 9:44 PM VICE PROVOST [facility] PROVIDER ORDERED STATUS RANDOM 2024 9:44 PM VICE PROVOST [facility] [employer] Blood BLOOD SPECIMEN / Unknown Venipuncture / Unknown 2024 11:49 AM VICE PROVOST 2024 11:50 AM VICE PROVOST us Sandra Littlejohnt DO CHEMISTRY Final Resul t [facility] [address] [place] [address], [place] * COLONOSCOPY (05/07/2019 8:00 AM CDT) [...] reponse to care. Please refer to the the medical center'ts medical record flowsheets and nursing notes for moderate sedation details. Total physician intraservice time was 25 minutes. Brian Haney MD 05/07/2019 8:43:03 AM This report has been signed electronically. Note Initiated On: 05/07/2019 8:00 AM Procedure Code(s): --- Professional --- 70631, Colonoscopy, flexible; with removalof tumor(s), polyp(s), or other lesion(s) bysnare technique Diagnosis Code(s): --- Professional --- Z86.010, Personal history of colonicpolyps D12.5, Benign neoplasm of sigmoid colon CPT copyright 2017 [employer]. All rights reserved. The codes documented in this report are preliminary and upon brand strategist reviewmay be revised to meet current compliance requirements. Scope In: 8:11:35 AM Scope Withdrawal Time 0 hours 17 minutes 2 seconds Scope Out: 8:35:07 AM us Brian Haney MD PROCEDURE ORD Final Res ult * ANTI HCV [82385.2] (12/28/2015 11:44 AM VICE PROVOST) HEPATITIS C ANTIBODY Non-Reacti ve Non-Reacti ve 12/28/2015 4:35 PM VICE PROVOST [facility] Blood specimen (specimen) BLOOD SPECIMEN / Unknown Venipuncture / Unknown 12/28/2015 11:44 AM VICE PROVOST 12/28/2015 11:44 AM VICE PROVOST Narrative [facility] - 12/28/2015 4:35 PM VICE PROVOST Antibodies to HCV not detected; does not exclude the possibility of exposure to HCV. us Sandra Barragan DO SEND OUTS Final Resul t [facility] [address] [place] [address], from Last 3 Months or Most Recently Relevant to Health Maintenance Insurance MEDICARE PART A HB ONLY [facility] MR/MSHO MEDICARE PART B HB ONLY Advance Directives Documents on File Type Date Recorded Patient Administrative Support Specialist Expl anation Healthcare Directive 03/18/2011 HEALTH CARE DIRECTIVE, [facility], 03/18/11 * Full Code (Latest Code Status on File) Date Activated Date Inactivated Comments 06/22/2015 10:47 AM 06/22/2015 2:40 PM * Full Code Date Activated Date Inactivated Comments 04/02/2012 1:18 PM 04/03/2012 2:11 AM Care Teams Quality Control Head Relationship Specialty Start Date End Date Sandra Barragan DO [address] [place] [address] PCP - General Family Practice 11/16/23 [place] [address] [place] [address] Meat [employer]ger 12/26/14 Ni Juarez MD [address] [facility] [address] [place] [address] Rheumatology Rheumatology 09/03/20
[2024-12-29] MEDS: 0.9 % SODIUM CHLORIDE 1000 ml 1,000 ML 6000 ML IV (18:25)
--- OUTSIDE RECORDS SUMMARY | 2024-12-29 18:30 | XMS_ITS | Clinical Summary ---
Author Organization [facility] Address [address] [place] [address] Care Team Providers Care Special Needs Nanny Name Role Phone Unavailable Primary Care Provider Unavailabl e Source Comments Patient records contain information from all sites at [facility]. For routine questions regarding patient records, call [phone] during business hours, M-F 8:00 AM - 5:00 PM Central Time. Record requests for emergency care only can be directed to [phone] at any time.[facility] Allergies Active Allergy Reactions Criticality Noted [...] from 07/09/2024:Stage Unknown(pT1b, pNX, cM0, G1, ER+, GA+, HER2-) - Unsigned Overview (08/02/2024): Multifocal stage IA left breast cancer, ER positive, GA positive, HER2 of 1+ IHC Family History Medical History Relation Name Comments Cancer Neg Hx Social History Tobacco Use Types Packs/Day Years Used Date Smoking Tobacco: Every Day Cigarettes Smokeless Tobacco: Never Alcohol Use Standard Drinks/Week Comments Yes 0 (1 standard drink = 0.6 oz pur e alcohol) [facility] Utilities Answer Date Recorded In the past 12 months has e [employer], gas, oil, or water [employer] threatened to shut off services in your [...] situation today? I have a [facility] place to live 08/04/2024 Comments Unknown Sex and Gender Information Value Date Recorded Sex Assigned at Female 08/04/2024 1:46 PM CDT Legal Sex Female 6:23 PM NERVE SPECIALIST Gender Identity Female 08/04/2024 1:46 PM CDT [...] System IMG BI PROCEDURES Final R esult IIND NA from Last 3 Months or Most Recently Relevant to Health Maintenance Additional Health Concerns Infection Onset Date Last Indicated Protective Environment 08/09/2024 Insurance [facility]
--- OUTSIDE RECORDS SUMMARY | 2024-12-29 18:30 | XMS_ITS | Continuity of Care Document ---
Author Organization [facility] Address [address] [place] [address] Phone Care Team Providers Care Keymodule Assembly Supervisor Name Role Phone Mihaela Ross MD Unavailable Unavailable Procedures Procedure Date Office/outpatient visit,est, low 2009 Office consultation, moderate 0 X-ray exam lwr spine, min 4 views Advance Directives Directive Yes / No Effective Date File Name No Information Encounters Encounter Description Practice Location Reason(s) For Visit Diagnoses Date Provider Providers Copied on Encounter Office/outpat ient visit,est, low Z [facility], [address] [place] [address], [facility], [place] tel:[phone] No Information Cody Chairez. [facility], [address] [address], [place], [place], [id number] , [place]. tel:[phone] Referring Provider: Nevaeh Mcmanus, [facility] [address], [place], [address] . tel:[phone] Office consultation, moderate Z [facility], [address] [place] [address], [place], [address], [place] tel:[phone] No Information Cody Chairez. [facility], [address], [id number] , [place]. tel:[phone] Referring Provider: Nevaeh Mcmanus, [facility] [place], [address] . tel:[phone] Family History Family Member Type Diagnosis Age At Onset No Information Payers Payer name Insurance type Covered constitution party ID Mai yadav(federico) BRITT [id number] Social History Type Description Quantity Date Captured [...]
--- OUTSIDE RECORDS SUMMARY | 2024-12-29 18:31 | XMS_ITS | Clinical Summary ---
Author Organization [facility] Address [place], [place] [address] Care Team Providers Care Commissary Officer Name Role Phone Pérez Black OD Unavailable [phone] Ni Juarez MD Unavailable [phone] Sandra Barragan DO Primary Care Provider Allergies [...] Overview (09/30/2008): Previously diagnosis with lupus, At [place] December 2007 changed diagnosis Fibromyalgia 07/22/2008 Unspecified essential hypertension 06/28/2007 Tobacco use disorder 06/28/2007 Restless legs syndrome (RLS) 03/01/2007 Benign neoplasm of colon 03/01/2007 Overview (05/08/2019): Colonoscopy 04/2019 polyps, repeat in 5 years Resolved Problems Problem Noted Date Diagnosed Date Resolved Date buttermaker helper (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 anticoagulants 09/24/2012 01/02/2013 buttermaker helper (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 anticoagulants 04/07/2009 03/07/2018 Fibromyalgia 08/04/2008 08/18/2008 Lupus erythematosus 03/01/2007 09/30/20 08 Overview (03/01/2007): 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 Presbyopia 05/31/2006 08/08/2016 Myopia 05/31/2006 02/17/2012 Encounters Date Type Department Care Team Description 12/25/2024 Orders Only [facility] Scanner 1 scan: (1-Ord) [place], CT HEAD/BRAIN WO CON, 12/25/2024 12/25/2024 Orders Only [facility] Scanner 1 scan: (1-Ord) [facility], XR ELBOW RT MIN 3V, 12/25/2024 12/25/2024 Orders Only [facility] Scanner 1 scan: (1-Ord) [place], CERVICAL SPINE WO CON , 12/25/2024 12/24/2024 10:20 AM JET WORKER Office Visit [facility] at [facility] [address] [facility] [id number] Claude Méndez MD Procedure (L4-5 ILESI) 12/22/2024 Travel 12/16/2024 1:45 PM JET WORKER Ancillary Procedure [facility] [address] [facility] [place] [address] 12/16/2024 1:20 PM JET WORKER Office Visit [facility] [address] [place] [address] Claude Méndez MD Musculoskeletal Problem (Follow up back pain) 12/16/2024 Travel 12/13/2024 Travel 11/19/2024 Orders Only [facility] [address] [facility] [place] [address] Sandra Barragan DO <No scans attached> 11/18/2024 11:45 AM JET WORKER Ancillary Procedure [facility] [address] [place] [address] 11/18/2024 Travel 11/14/2024 Travel 11/04/2024 10:15 AM JET WORKER Office Visit [facility] [address] [place] [address] Sandra Barragan DO Follow Up 11/03/2024 Travel [...] History Relation Name Comments Other Father d72, [place] Other Mother d76, durin g heart valve [...] on file Legal Sex Female 5:24 AM JET WORKER Gender Identity Not on file Sexual Orientation [...] Comments Blood Pressure 144/86 12/16/2024 1:16 PM JET WORKER Pulse 96 12/16/2024 1:16 PM JET WORKER Temperature 36.7 C (98 F) 12/16/2024 1:16 PM JET WORKER Respiratory Rate 20 03/07/2024 11:19 AM CDT Oxygen Saturation 97% 12/16/2024 1:16 PM JET WORKER Inhaled Oxygen Concentration - - Weight 71.3 kg (157 lb 3.2 oz) 12/16/2024 1:16 P M JET WORKER shoes on Height 167.2 cm (5' 5.83) 07/24/2024 11:17 AM C DT Body Mass Index 25.51 07/24/2024 11:17 AM CDT Plan of Treatment Upcoming Encounters Date Type Department Care Team (Late st Contact Info) Description 12/30/2024 10:25 AM JET WORKER Office Visit [facility] [address] [place] [address] [place] [address] [place] [address] 02/13/2025 11:00 AM CDT Office Visit [facility] [address] [place] [address] Claude Méndez MD [address] [place] [address] Health Maintenance Due Date Last Done Comments [...] history exists Medical Devices Implanted Type Area Float Phlebotomist Device Identifier Shelf Expiration Date Model / Serial / Lot Lens Iol 21.0 Wf [id number]. 0 - [id number] Implanted:Qty: 1 on 06/22/2015 by Atilio Mendoza MD at [facility] Right: Eye [employer] 03/19/2020 [id number]. [id number] / [id number] / Procedures Procedure Name Priority Date/Time Associated Diagnosis Comments SCAN-CT INTERPRETATION 12:00 AM JET WORKER SCAN-RADIOLOGY REPORT 12/25/2024 12:00 AM JET WORKER SCAN-CT INTERPRETATION 12:00 AM JET WORKER AMB EPIDURAL STEROID INJECTION Routine 12/24/2024 12:00 AM JET WORKER Lumbar foraminal stenosis Lumbar facet arthropathy Lumbar radiculopathy XR SPINE LUMBAR 2 VIEWS Routine 12/16/2024 2:06 PM JET WORKER Lumbar foraminal stenosis Lumbar facet arthropathy Lumbar radiculopathy MR HEAD BRAIN WO Routine 11/18/2024 1:43 PM JET WORKER Persistent postural-perceptual dizziness Vertebral artery stenosis, symptomatic, without infarction, bilateral Weakness Invasive ductal carcinoma of breast, female, left (HC) SCAN-BONE DENSITOMETRY DEXA 08/01/2024 12:[address] CHEST SCREENING LOW DOSE WO CONTRAST Routine 06/13/2024 12:59 PM CDT Encounter for screening for lung cancer Smoker LIPID PANEL W REFLEX MEASURED LDL Routine 2024 11:49 AM JET WORKER Screening cholesterol level COLONOSCOPY 05/07/2019 8:00 AM CDT ANTI HCV Routine 12/28/2015 11:44 AM JET WORKER Need for hepatitis C screening test from Last 3 Months or Most Recently Relevant to Health Maintenance Results * SCAN-RADIOLOGY REPORT (12/25/2024 12:00 AM JET WORKER) Anatomical Region Laterality Modality Other us Scanner OTHER Final Result * SCAN-CT INTERPRETATION (12/25/2024 12:00 AM JET WORKER) Only the most recent of2 resultswithin the time period is included. Anatomical Region Laterality Modality Other us Scanner OTHER Final Result * AMB EPIDURAL STEROID INJECTION (12/24/2024 12:00 AM JET WORKER) us Claude Méndez MD NEUROLOGY ORD Final Resu lt * XR SPINE LUMBAR 2 VIEWS (12/16/2024 2:06 PM JET WORKER) Anatomical Region Laterality Modality LUMBAR SPINE Computed Radiogr aphy 12/16/2024 2:38 PM JET WORKER Impressions 12/16/2024 2:38 PM JET WORKER Multilevel degenerative disc disease, not significantly changed. Lower lumbar spine facet degeneration. Dictated by Gordon Torres MD @ 12/16/2024 2:38:34 PM (Electronically Signed) Narrative 12/16/2024 2:38 PM JET WORKER For Patients: As a result of the [...] MR HEAD BRAIN WO (11/18/2024 1:43 PM JET WORKER) Anatomical Region Laterality Modality BRAIN, HEAD Magnetic Resonan ce 11/18/2024 2:56 PM JET WORKER Impressions 11/18/2024 2:56 PM JET WORKER 1. No acute infarction or other acute intracranial pathology. 2. Mild chronic microvascular ischemic changes and moderate generalized parenchymal volume loss. Dictated by Cuco Ribeiro MD @ 11/18/2024 2:56:35 PM (Electronically Signed) Narrative 11/18/2024 2:56 PM JET WORKER For Patients: As a result of the [...] DOSE LUNG CANCER SCREENING CT CHEST LOCATION: [facility] DATE: 06/13/2024 INDICATION: Lung cancer screening. [...] DOSE LUNG CANCER SCREENING CT CHEST LOCATION: [facility] DATE: 06/13/2024 INDICATION: Lung cancer screening. [...] W REFLEX MEASURED LDL (2024 11:49 AM JET WORKER) CHOLESTEROL,TOTAL 228(H) 100 - 199 mg/dL 2024 9:44 PM JET WORKER [facility] [employer] [facility] Comment: Cholesterol, Total Reference Ranges Desirable <200 mg/dL Borderline 200-239 mg/dL High >=240 mg/dL TRIGLYCERIDES 60 <150 mg/dL 2024 9:44 PM JET WORKER [facility] [employer] [facility] HDL CHOLESTEROL 140 >40 mg/dL 9:44 PM JET WORKER [facility] NON-HDL CHOLESTEROL 88 <145 mg/dl 2024 9:44 PM JET WORKER [facility] CHOL/HDL RATIO 1.63 <4.50 2024 9:44 PM JET WORKER [facility] LDL CHOLESTEROL 76 <=130 mg/dL 2024 9:44 PM JET WORKER [facility] VLDL CHOLESTEROL 12 <=30 mg/dL 2024 9:44 PM JET WORKER [facility] PROVIDER ORDERED STATUS RANDOM 2024 9:44 PM JET WORKER [facility] [employer] Blood BLOOD SPECIMEN / Unknown Venipuncture / Unknown 2024 11:49 AM JET WORKER 2024 11:50 AM JET WORKER us Sandra Littlejohnt DO CHEMISTRY Final Resul t [facility] [address] [place] [address], [place] * COLONOSCOPY (05/07/2019 8:00 AM CDT) [...] reponse to care. [facility] and nursing notes for moderate sedation details. Total physician intraservice time was 25 minutes. Brian Haney MD 05/07/2019 8:43:03 AM This report has been signed electronically. Note Initiated On: 05/07/2019 8:00 AM Procedure Code(s): --- Professional --- 70145, Colonoscopy, flexible; with removalof tumor(s), polyp(s), or other lesion(s) bysnare technique Diagnosis Code(s): --- Professional --- Z86.010, Personal history of colonicpolyps D12.5, Benign neoplasm of sigmoid colon CPT copyright 2017 [employer]. All rights reserved. The codes documented in this report are preliminary and upon student services vice president reviewmay be revised to meet current compliance requirements. Scope In: 8:11:35 AM Scope Withdrawal Time 0 hours 17 minutes 2 seconds Scope Out: 8:35:07 AM us Brian Haney MD PROCEDURE ORD Final Res ult * ANTI HCV [16070.2] (12/28/2015 11:44 AM JET WORKER) HEPATITIS C ANTIBODY Non-Reacti ve Non-Reacti ve 12/28/2015 4:35 PM JET WORKER [facility] Blood specimen (specimen) BLOOD SPECIMEN / Unknown Venipuncture / Unknown 12/28/2015 11:44 AM JET WORKER 12/28/2015 11:44 AM JET WORKER Narrative [facility] - 12/28/2015 4:35 PM JET WORKER Antibodies to HCV not detected; does not exclude the possibility of exposure to HCV. us Sandra Barragan DO SEND OUTS Final Resul t [facility] [address] [place] [address], from Last 3 Months or Most Recently Relevant to Health Maintenance Insurance MEDICARE PART A HB ONLY [facility] MR/MSHO MEDICARE PART B HB ONLY Advance Directives Documents on File Type Date Recorded Patient Diamond Driller Helper Expl anation Healthcare Directive 03/18/2011 HEALTH CARE DIRECTIVE, [facility], 03/18/11 * Full Code (Latest Code Status on File) Date Activated Date Inactivated Comments 06/22/2015 10:47 AM 06/22/2015 2:40 PM * Full Code Date Activated Date Inactivated Comments 04/02/2012 1:18 PM 04/03/2012 2:11 AM Care Teams Commissary Officer Relationship Specialty Start Date End Date Sandra Barragan DO [address] [place] [address] PCP - General Family Practice 11/16/23 [place] [address] [place] [address] Needle Loom Weaver 12/26/14 Ni Juarez MD [address] [facility] [address] [place] [address] Rheumatology Rheumatology 09/03/20
--- OUTSIDE RECORDS SUMMARY | 2024-12-29 18:31 | XMS_ITS | Continuity of Care Document ---
Author Organization [facility] Address [address] [address] [place] [address] Phone Care Team Providers Care Grade Recorder Name Role Phone Unavailable Unavailable Unavailable Advance Directives Directive Yes / No Effective Date File Name No Information Encounters Encounter Description Practice Location Reason(s) For Visit Diagnoses Date Provider Providers Copied on Encounter [facility], [address] [address], [place], [place], [id number], [place] tel:[phone] [facility] No Information Jul-2 4200 4 No Information Referring Provider: Marlon Mcmahon MD, [facility] [address] , [place], [address]. tel:[phone] Family History Family Member Type Diagnosis Age At Onset No Information Payers Payer name Insurance type Covered republican ID Authoriza timarisa(s) [facility] [id number] Social History Type Description Quantity Date Captured [...]
--- NOTE | 2024-12-29 18:34 | ED.GENADULT ---
HPI - General Adult General Chief complaint: Unspecified Complaint, Adult Stated complaint: Dizziness, fall Monday--R arm injury Time Seen by Provider: 12/29/24 17:58 History of Present Illness HPI narrative: Patient is a 74 year white female alcoholic who presents with not feeling well, some dizziness on Monday she fell lace sewer olecranon. The patient reports that she drinks daily she is trying to get into some kind of treatment. They are working with Dr. Littlejohn the regular physician on this. She is here with her son. She lives independently. She slipped off the toilet today. She reports she drank vodka today. She is not having abdominal pain but has not really had much of an appetite. She feels like she is ?dehydrated?. She is planning on getting her elbow fixed with Dr. Stephenson 10 this week. Patient denies fever, cough, chest pain, abdominal pain. She has had no dysuria. She has had no marked cough. Presents to ER with her son for evaluation. Related Data Home Medications ?Medication ?Instructions ?Recorded ?Confirmed cholecalciferol (vitamin D3) 25 1,000 unit PO DAILY 08/07/23 12/29/24 mcg (1,000 unit) capsule hydroxychloroquine 200 mg tablet 200 mg PO DAILY 08/07/23 12/29/24 levothyroxine 88 mcg tablet 88 mcg PO QAM 08/07/23 12/29/24 methotrexate sodium 2.5 mg tablet 10 mg PO 2XW 08/07/23 12/29/24 rosuvastatin 10 mg tablet 10 mg PO QPM 08/07/23 12/29/24 albuterol sulfate 2.5 mg/3 mL 2.5 mg inhalation Q6-8H PRN 07/05/24 12/29/24 (0.083 %) solution for nebulization amlodipine 5 mg tablet (Norvasc) 5 mg PO DAILY 07/05/24 12/29/24 aspirin 81 mg tablet,delayed 81 mg PO DAILY 07/05/24 12/29/24 release (Ecotrin Low Strength) clonazepam 0.5 mg tablet 1 mg PO HS 07/05/24 12/29/24 escitalopram oxalate 20 mg tablet 20 mg PO DAILY 07/05/24 12/29/24 folic acid 1 mg tablet 1 mg PO DAILY 07/05/24 12/29/24 fluticasone furoate 100 1 inh inhalation QDAY 10/31/24 12/29/24 mcg-vilanterol 25 mcg/dose inhalation powder (Breo Ellipta) Tylenol 12/29/24 Previous Rx's ?Medication ?Instructions ?Recorded anastrozole 1 mg tablet 1 mg PO QDAY #90 tabs 08/01/24 Allergies Allergy/AdvReac Type Severity Reaction Status Date / Time dexamethasone (From Maxitrol) Allergy Mild red, Verified 12/29/24 18:06 puffy, itchy eyes lidocaine Allergy Mild Rash Verified 12/29/24 18:06 neomycin (From Maxitrol) Allergy Mild red, Verified 12/29/24 18:06 puffy, itchy eyes polymyxin B (From Maxitrol) Allergy Mild red, Verified 12/29/24 18:06 puffy, itchy eyes Sulfa (Sulfonamide Allergy Mild Hives Verified 12/29/24 18:06 Antibiotics) varenicline (From Chantix) Allergy Verified 12/29/24 18:06 tegaderm Allergy Uncoded 12/27/24 09:13 Review of Systems Status of ROS: Reports: 6 or more systems reviewed and unremarkable except as noted in History and below Narrative: Patient also complains about her splint on the right arm a as she had this wrapped fairly tightly and snugly eye on wrapped it and rewrapped it and she felt markedly better she has some bruising about the proximal arm. 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-10) Chronic rheumatic arthritis ?M06.9 - Rheumatoid arthritis, unspecified (ICD-10) Chronic low back pain ?M54.50 - Low back pain, unspecified (ICD-10) ?G89.29 - Other chronic pain (ICD-10) Adjustment disorder with depressed mood ?F43.21 - Adjustment disorder with depressed mood (ICD-10) Surgical History History of thumb surgery (11/27/02) ?Z98.890 - Other specified postprocedural states (ICD-10) 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) ?Z96.642 - Presence of left artificial hip joint (ICD-10) History of total right hip arthroplasty (09/19/12) ?Z96.641 - Presence of right artificial hip joint (ICD-10) History of YAG laser capsulotomy of lens of right eye ?Z98.41 - Cataract extraction status, right eye (ICD-10) History of phacoemulsification of cataract of left eye with intraocular lens implantation ?Z98.42 - Cataract extraction status, left eye (ICD-10) ?Z96.1 - Presence of intraocular lens (ICD-10) History of total abdominal hysterectomy ?Z90.710 - Acquired absence of both cervix and uterus (ICD-10) Hx of right cataract extraction ?Z98.41 - Cataract extraction status, right eye (ICD-10) Social History Smoking Status: Current every day smoker What tobacco products do you use: cigarettes Smoking packs per day: 0.5 Smoking cigarettes per day: 10.0 Do you use any of these nicotine containing products: None How often do you have a drink containing alcohol: 4 or more times a week How many standard drinks containing alcohol do you have on a typical day: 5 or 6 How often do you have six or more drinks on one occasion: Daily or almost daily AUDIT-C Alcohol total score: 10 Non-prescribed substance use: denies use Caffeine: Yes service: No Exam Narrative: Exam Narrative: Objective: The patient is alert or x3 no facial asymmetry mouth clear slightly dry neck is supple vital signs are within normal limits afebrile O2 sat 97% on room air Neck nontender back unremarkable she got bruising above her splint on the right the as mention these Seth wrap was removed she has a posterior arm splint on and it felt markedly better after repair she will have an arm sling placed as well she left hers at home Heart rate and rhythm regular lungs clear abdomen benign soft extremities without edema neurologic nonfocal Const: Vital Signs, click to edit/add: Vital Signs - 24 hr 12/29/24 18:00 12/29/24 18:22 12/29/24 18:51 Temperature 98.2 F Pulse Rate Pulse Rate [Left P ulse Oximeter] 70 Respiratory Rate 18 Respiratory Rate [ Right Elbow] 18 Blood Pressure Blood Pressure [Le ft Upper Arm] 111/76 Pulse Oximetry 97 97 [facility] 12/29/24 19:17 12/29/24 19:30 12/29/24 19:32 Temperature Pulse Rate 71 67 83 Pulse Rate [Left P ulse Oximeter] Respiratory Rate 21 16 22 Respiratory Rate [ Right Elbow] Blood Pressure 151/87 H Blood Pressure [Le ft Upper Arm] Pulse Oximetry 100 97 95 [facility] 12/29/24 19:45 12/29/24 20:00 12/29/24 20:02 Temperature Pulse Rate 83 69 70 Pulse Rate [Left P ulse Oximeter] Respiratory Rate 12 8 L 15 Respiratory Rate [ Right Elbow] Blood Pressure 156/85 H Blood Pressure [Le ft Upper Arm] Pulse Oximetry 97 98 97 [facility] 12/29/24 20:19 12/29/24 20:30 12/29/24 20:32 Temperature Pulse Rate 86 72 71 Pulse Rate [Left P ulse Oximeter] Respiratory Rate 30 H 24 25 H Respiratory Rate [ Right Elbow] Blood Pressure 144/82 H Blood Pressure [Le ft Upper Arm] Pulse Oximetry 98 97 98 [facility] 12/29/24 20:45 12/29/24 21:00 12/29/24 21:02 Temperature Pulse Rate 69 70 70 Pulse Rate [Left P ulse Oximeter] Respiratory Rate 12 17 20 Respiratory Rate [ Right Elbow] Blood Pressure 141/82 H Blood Pressure [Le ft Upper Arm] Pulse Oximetry 98 98 98 [facility] 12/29/24 21:03 Temperature Pulse Rate 74 Pulse Rate [Left P ulse Oximeter] Respiratory Rate 18 Respiratory Rate [ Right Elbow] Blood Pressure Blood Pressure [Le ft Upper Arm] Pulse Oximetry 97 Oxygen Delivery Me od Course Vital Signs Vital signs: Initial Vital Signs Temperature 98.2 F 12/29/24 18:00 Temperature Source Oral 12/29/24 18:00 Pulse Rate 70 12/29/24 18:00 Respiratory Rate 18 12/29/24 18:00 Blood Pressure 111/76 12/29/24 18:00 Blood Pressure Mean 87 12/29/24 18:00 Blood Pressure Position Sitting 12/29/24 18:00 Pulse Oximetry 97 12/29/24 18:00 Oxygen Delivery Method Room Air 12/29/24 18:00 Vital Signs Temperature 98.2 F 12/29/24 18:00 Pulse Rate 70 12/29/24 18:00 Respiratory Rate 18 12/29/24 18:00 Blood Pressure 111/76 12/29/24 18:00 Pulse Oximetry 97 12/29/24 18:00 Oxygen Delivery Method Room Air 12/29/24 18:00 Temperature 98.2 F 12/29/24 18:00 Pulse Rate 74 12/29/24 21:03 Respiratory Rate 18 12/29/24 21:03 Blood Pressure 141/82 H 12/29/24 21:02 Pulse Oximetry 97 12/29/24 21:03 Oxygen Delivery Method Room Air 12/29/24 18:00 Medications Administered Medications: Discontinued Medications Generic Name Dose Route Start Last Admin Trade Name Kalinq PRN Reason Stop Dose Admin Sodium Chloride 1,000 mls @ 6,000 mls/hr 12/29/24 18:30 12/29/24 19:00 0.9 % Sodium Chloride 1000 Ml IV 12/29/24 18:39 Infused .Q10M ASIA Infusion Sodium Chloride 500 mls @ 500 mls/hr 12/29/24 19:21 12/29/24 21:26 0.9 % Sodium Chloride 500 Ml IV 12/29/24 20:20 Infused .Q1H ONE Infusion Lorazepam 1 mg 12/29/24 20:29 12/29/24 20:34 Lorazepam 1 Mg Tablet PO 12/29/24 20:30 1 mg ONCE ONE Administration Medical Decision Making MDM Narrative Medical decision making narrative: 74-year-old female with dizziness this week now feeling of malaise, would check viral studies, electrolytes labs. Her examination looks pretty unremarkable. She will have an alcohol level checked. Disposition pending findings above. She had a negative CT scan of the head neck last visit. Addendum 8:14 p.m. patient really is unable to walk without significant assistance. I think she should be put in the hospital at this time as does her family. She did break her olecranon with a fall this week. She is scheduled to have that fixed sometime this week. She is not intoxicated currently. Her EKG and labs look pretty reassuring she had a recent CT scan of the head that was negative. I think physical therapy and social service likely need to get involved and she needs to be kept in safe environment. Family is unable to stay with her. Will discuss with hospitalist. Diagnosis would be on able to care for self unable to walk, significant weakness and malaise. Lab Data Labs: Lab Results 12/29/24 12/29/24 Range/Units 18:23 18:30 WBC 10.72 (4.50-11.00) K/uL RBC 4.38 (4.00-5.20) m/uL Hgb 15.5 (12.0-16.0) gm/dL Hct 45.0 (33.0-51.0) % MCV 103 H (80-100) fL MCH 35 H (26-34) pg MCHC 34 (32-36) gm/dL RDW Coeff of Kathya 15.0 (11.5-15.5) % Plt Count 240 (140-440) K/uL Neut % (Auto) 67.4 (42.0-72.0) % Lymph % (Auto) 21.5 (20-44) % [place] % (Auto) 9.6 (0.0-11.0) % Eos % (Auto) 0.7 (0.0-7.0) % Baso % (Auto) 0.1 (0.0-3.0) % Neut # (Auto) 7.23 H (1.7-7.0) K/uL Lymph # (Auto) 2.30 (0.90-2.90) K/uL [place] # (Auto) 1.00 H (0.00-0.90) K/UL Eos # (Auto) 0.07 (0.00-0.50) K/uL Baso # (Auto) 0.01 (0.00-0.30) K/uL Abs Immat Gran (auto) 0.08 (0.00-0.30) K/uL Imm/Tot Granulo (auto) 0.7 % Sodium 141 (135-149) mmol/L Potassium 3.4 L (3.6-5.1) mmol/L Chloride 105 (96-114) mmol/L Carbon Dioxide 21 (20-32) mmol/L Anion Gap 15 (7-15) mEq/L BUN 14 (7-30) mg/dL Creatinine 0.5 (0.5-1.5) mg/dL Estimated Creat Clear 45.50 Estimated GFR 98 ml/min Glucose 75 (60-115) mg/dL Lactate 3.3 H (0.5-1.9) mmol/L Calcium 9.3 (8.4-10.6) mg/dL Total Bilirubin 0.8 (0.1-1.5) mg/dL Direct Bilirubin 0.4 (0.0-0.5) mg/dL AST 58 H (12-35) U/L ALT 29 (4-35) U/L Alkaline Phosphatase 84 (40-150) U/L Total Protein 7.0 (6.0-8.3) g/dL Albumin 4.7 (3.3-5.0) g/dL Amylase 63 (18-89) U/L Ethyl Alcohol 0.01 (0.01-0.03) % SARS-CoV-2 (PCR) Negative SARS-CoV-2 (Negative) Influenza Type A (PCR) Negative PCR FLU A (Negative) Influenza Type B (PCR) Negative PCR FLU B (Negative) RSV (PCR) Negative PCR RSV (Negative) POC Troponin I 0.03 (0.01-0.04) ng/ml Discharge Plan Discharge Clinical Impression: Malaise, Inability to walk Patient Disposition: Admitted As Observation Condition: Stable Activity Level: No Restrictions Discharge Diet: Regular
[2024-12-29 18:45] LABS: Lactate* 3.3 mmol/L (0.5-1.9)
[2024-12-29 18:47] LABS: Basophils Absolute Auto 0.01 K/uL (0.00-0.30); Basophils Percent Auto 0.1 % (0.0-3.0); Eosinophils Absolute Auto 0.07 K/uL (0.00-0.50); Eosinophils Percent Auto 0.7 % (0.0-7.0); Hemoglobin* 15.5 gm/dL (12.0-16.0); Immature Granulocytes Abs Auto 0.08 K/uL (0.00-0.30); Immature Granulocytes Pct Auto 0.7 %; Lymphocytes Percent Auto 21.5 % (20-44); Mean Corpuscular HGB Conc 34 gm/dL (32-36); Mean Corpuscular Hemoglobin 35 pg (26-34); Mean Corpuscular Volume 103 fL (80-100); Monocytes Percent Auto 9.6 % (0.0-11.0); Neutrophils Absolute Auto 7.23 K/uL (1.7-7.0); Neutrophils Percent Auto 67.4 % (42.0-72.0); Platelet Count* 240 K/uL (140-440); Red Blood Count 4.38 m/uL (4.00-5.20); White Blood Count* 10.72 K/uL (4.50-11.00)
[2024-12-29 18:48] LABS: Slide Review Reflex No
[2024-12-29 18:53] LABS: Troponin, Point-of-Care* 0.03 ng/ml (0.01-0.04)
[2024-12-29 19:06] LABS: Albumin* 4.7 g/dL (3.3-5.0); Chloride* 105 mmol/L (96-114)
[2024-12-29 19:07] LABS: Potassium* 3.4 mmol/L (3.6-5.1); Sodium* 141 mmol/L (135-149)
[2024-12-29 19:09] LABS: Alkaline Phosphatase* 84 U/L (40-150); Anion Gap 15 mEq/L (7-15); Aspartate Amino Transferase* 58 U/L (12-35); Bilirubin Direct* 0.4 mg/dL (0.0-0.5); Bilirubin Total* 0.8 mg/dL (0.1-1.5); Blood Urea Nitrogen* 14 mg/dL (7-30); Carbon Dioxide* 21 mmol/L (20-32); Creatinine* 0.5 mg/dL (0.5-1.5); Estimated Glomerular Filt Rate 98 ml/min
[2024-12-29 19:10] LABS: Alanine Aminotransferase* 29 U/L (4-35); Amylase* 63 U/L (18-89); Calcium* 9.3 mg/dL (8.4-10.6); Glucose* 75 mg/dL (60-115)
[2024-12-29 19:19] LABS: Ethanol* 0.01 % (0.01-0.03)
[2024-12-29 19:32] LABS: PCR FLU A Negative PCR FLU A (Negative); PCR FLU B Negative PCR FLU B (Negative); PCR RSV Negative PCR RSV (Negative); SARS PCR* Negative SARS-CoV-2 (Negative)
[2024-12-29] MEDS: 0.9 % SODIUM CHLORIDE 500 ML 500 ML IV (19:35)
[2024-12-29] MEDS: LORazepam 1 MG TABLET PO (20:34)
[2024-12-29 22:38] LABS: Appearance Urine Clear (Clear); Bilirubin Urine Negative (Negative); Blood Urine 1+ (Negative); Color Urine Yellow (Yellow); Glucose Urine Negative (Negative); Ketones Urine 2+ (Negative); Leukocyte Esterase Urine Negative (Negative); Nitrite Urine Negative (Negative); Protein Urine Negative (Negative)
[2024-12-29 22:50] LABS: Bacteria Urine Few; RBC Urine 0-2 (0-2); Squamous Epithelial Cell Urine Few (None-Few); WBC Urine 0-2 (0-5)
--- NOTE | 2024-12-29 23:02 | PM.IMHP1 ---
Hospitalist- H&P: HPI History of Present Illness Date Seen: 12/29/24 Chief complaint: Dizziness, fall Monday--R arm injury Narrative: Itzel Sahni is a 74 year old woman presents accompanied by her son, Douglas, for assessment of inability to safely walk. Has had fairly longstanding difficulties with safely walking such that she ordinarily uses a walker in her own home. Has been using the walker for at least a year. Has had multiple falls during this past year and even prior. Patient and son acknowledged that her walking abilities are worsening over time. She can no longer safely walk up or down steps. Has worked a number of hours with physical therapy and chiropractor. Despite these efforts her condition is evolving. Four days ago she fell in her home and fractured her right olecranon. She is scheduled to see Dr. Ovi Sage for possible surgical repair this coming Monday. Today while she was sitting on the toilet in her bathroom she fell off the toilet and was unable to get up. She was able to call her son who helped her up and brought her in for further assessment. She acknowledges it is harder for her to walk since she fractured her right olecranon given that she is not able to use her right hand to help stabilize herself. She describes as a sense of her legs are weak. Review of Systems Status of ROS: Reports: 6 or more systems reviewed and unremarkable except as noted in History and below Narrative: Denies any other recent trauma, injury, travel. Denies fevers, rigors, diaphoresis. Acknowledges drinking a minimum of 5 brandies daily. Today she has been drinking vodka she states. Denies nausea or vomiting or abdominal pain. Acknowledges decreased oral intake for a number of months. She thinks that she may have lost at least 5 lb. May be eating 1 meal daily. Denies myalgias or arthralgias. Rheumatoid arthritis has been well managed for 10 years under current regimen. Denies chest heaviness, pressure, tightness, or pain. Acknowledges chronic dry hacky cough. Denies dyspnea. Denies syncope or near-syncope. Denies orthostasis. Denies palpitations or chest fluttering. Denies dependent edema. Dr. Browning is her primary care physician. She designates her son Douglas as the 1st contact for us to speak with if she suddenly unable to speak on her own behalf. Turner cell phone number is [phone]. She designates her other son, Gordon, as the secondary contact in the event were not able to reach Douglas. Gordon's cell phone number is [phone]. Patient also expresses desire for DNR DNI resuscitation status in the event of cardiopulmonary demise. [facility] Medical History Cancer of left breast, stage 1, estrogen receptor positive ?C50.912 - Malignant neoplasm of unspecified site of left female breast (ICD-10) ?Z17.0 - Estrogen receptor positive status [ER+] (ICD-10) Fibromyalgia ?M79.7 - Fibromyalgia (ICD-10) Hypertension ?I10 - Essential (primary) hypertension (ICD-10) Controlled substance agreement signed ?Z79.899 - Other watermaster (current) drug therapy (ICD-10) Chronic rheumatic arthritis ?M06.9 - Rheumatoid arthritis, unspecified (ICD-10) Chronic low back pain ?M54.50 - Low back pain, unspecified (ICD-10) ?G89.29 - Other chronic pain (ICD-10) Adjustment disorder with depressed mood ?F43.21 - Adjustment disorder with depressed mood (ICD-10) Surgical History History of thumb surgery (11/27/02) ?Z98.890 - Other specified postprocedural states (ICD-10) 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) ?Z96.642 - Presence of left artificial hip joint (ICD-10) History of total right hip arthroplasty (09/19/12) ?Z96.641 - Presence of right artificial hip joint (ICD-10) History of YAG laser capsulotomy of lens of right eye ?Z98.41 - Cataract extraction status, right eye (ICD-10) History of phacoemulsification of cataract of left eye with intraocular lens implantation ?Z98.42 - Cataract extraction status, left eye (ICD-10) ?Z96.1 - Presence of intraocular lens (ICD-10) History of total abdominal hysterectomy ?Z90.710 - Acquired absence of both cervix and uterus (ICD-10) Hx of right cataract extraction ?Z98.41 - Cataract extraction status, right eye (ICD-10) Social History What is your current living situation?: I presently have a place to live Problems where you live: no known problems Problems where you live details: n/a In the past 12 months, utilities in danger of being shut off: no In past 12 months, lack of transportation kept you from medical appts, meetings, work, or getting things needed for daily living: no In the past 12 mos, have been you worried that your food would run out before you had money to buy more?: never true In the past 12 mos, the food you bought just didn't last and you didn't have money to buy more?: never true Highest level of school completed/degree received: Bachelor's degree Smoking Status: Current every day smoker What tobacco products do you use: cigarettes Smoking packs per day: 0.5 Smoking cigarettes per day: 10.0 Do you use any of these nicotine containing products: None How often do you have a drink containing alcohol: 4 or more times a week Alcohol type: hard liquor Alcohol type details: 1.75L E&J Cammy lasts pt 4 days How many standard drinks containing alcohol do you have on a typical day: 5 or 6 How often do you have six or more drinks on one occasion: Daily or almost daily AUDIT-C Alcohol total score: 10 Non-prescribed substance use: denies use Caffeine: Yes How often does anyone, including family, friends and others, physically hurt you: never How often does anyone, including family, friends and others, insult or talk down to you: never How often does anyone, including family, friends and others, threaten you with harm: never How often does anyone, including family, friends and others, scream or curse at you: rarely service: No Health Related Social Needs: Other personal risk factors, not elsewhere classified (Z91.89) Meds Home Medications and Allergies Home Medications ?Medication ?Instructions ?Recorded ?Confirmed ?Type cholecalciferol (vitamin D3) 25 1,000 unit PO DAILY 08/07/23 12/29/24 History mcg (1,000 unit) capsule hydroxychloroquine 200 mg tablet 200 mg PO DAILY 08/07/23 12/29/24 History levothyroxine 88 mcg tablet 88 mcg PO QAM 08/07/23 12/29/24 History methotrexate sodium 2.5 mg tablet 10 mg PO 2XW 08/07/23 12/29/24 History rosuvastatin 10 mg tablet 10 mg PO QPM 08/07/23 12/29/24 History albuterol sulfate 2.5 mg/3 mL 2.5 mg inhalation Q6-8H PRN 07/05/24 12/29/24 History (0.083 %) solution for nebulization amlodipine 5 mg tablet (Norvasc) 5 mg PO DAILY 07/05/24 12/29/24 History aspirin 81 mg tablet,delayed 81 mg PO DAILY 07/05/24 12/29/24 History release (Ecotrin Low Strength) clonazepam 0.5 mg tablet 1 mg PO HS 07/05/24 12/29/24 History escitalopram oxalate 20 mg tablet 20 mg PO DAILY 07/05/24 12/29/24 History folic acid 1 mg tablet 1 mg PO DAILY 07/05/24 12/29/24 History fluticasone furoate 100 1 inh inhalation QDAY 10/31/24 12/29/24 History mcg-vilanterol 25 mcg/dose inhalation powder (Breo Ellipta) Tylenol 12/29/24 History Allergies Allergy/AdvReac Type Severity Reaction Status Date / Time dexamethasone (From Maxitrol) Allergy Mild red, Verified 12/29/24 18:06 puffy, itchy eyes lidocaine Allergy Mild Rash Verified 12/29/24 18:06 neomycin (From Maxitrol) Allergy Mild red, Verified 12/29/24 18:06 puffy, itchy eyes polymyxin B (From Maxitrol) Allergy Mild red, Verified 12/29/24 18:06 puffy, itchy eyes Sulfa (Sulfonamide Allergy Mild Hives Verified 12/29/24 18:06 Antibiotics) varenicline (From Chantix) Allergy Verified 12/29/24 18:06 tegaderm Allergy Uncoded 12/27/24 09:13 Exam Narrative: Exam Narrative: Examined the patient in the emergency department. Appears comfortable with head of bed elevated at 30?. No acute distress. Vision and hearing are adequate. Alert and oriented x3. External auditory canals are clear. Tympanic membranes normal. Midline nasal septum. Dry buccal mucosa. Dentition in fair repair. No icterus or conjunctival injection. Conjugate gaze. Pupils equally round and reactive to light and accommodation. Neck is supple. Midline trachea. No head neck lymphadenopathy. Lungs clear to auscultation without wheezing, rhonchi, or rales. Chest wall excursions are full. No CVA tenderness. Heart tones with regular rhythm, normal S1-S2, without murmur, gallop, or rub. PMI is not laterally displaced. Abdomen with active bowel sounds, soft, nontender. No rebound or guarding. Lower extremities without edema. Proprioception intact bilateral lower extremities. Negative Babinski. Symmetric strength bilateral lower extremities. Right arm in a sling. Able to move all digits of her hand. Const: Vital Signs, click to edit/add: Vital Signs - 24 hr 12/29/24 18:00 12/29/24 18:22 12/29/24 18:51 Temperature 98.2 F Pulse Rate Pulse Rate [Left P ulse Oximeter] 70 Pulse Rate [Pulse Oximeter] Respiratory Rate 18 Respiratory Rate [ Right Elbow] 18 Blood Pressure Blood Pressure [Le ft Arm] Blood Pressure [Le ft Upper Arm] 111/76 Pulse Oximetry 97 97 Oxygen Delivery [facility] Room Air 12/29/24 19:17 12/29/24 19:30 12/29/24 19:32 Temperature Pulse Rate 71 67 83 Pulse Rate [Left P ulse Oximeter] Pulse Rate [Pulse Oximeter] Respiratory Rate 21 16 22 Respiratory Rate [ Right Elbow] Blood Pressure 151/87 H Blood Pressure [Le ft Arm] Blood Pressure [Le ft Upper Arm] Pulse Oximetry 100 97 95 Oxygen Delivery [facility] 12/29/24 19:45 12/29/24 20:00 12/29/24 20:02 Temperature Pulse Rate 83 69 70 Pulse Rate [Left P ulse Oximeter] Pulse Rate [Pulse Oximeter] Respiratory Rate 12 8 L 15 Respiratory Rate [ Right Elbow] Blood Pressure 156/85 H Blood Pressure [Le ft Arm] Blood Pressure [Le ft Upper Arm] Pulse Oximetry 97 98 97 Oxygen Delivery [facility] 12/29/24 20:19 12/29/24 20:30 12/29/24 20:32 Temperature Pulse Rate 86 72 71 Pulse Rate [Left P ulse Oximeter] Pulse Rate [Pulse Oximeter] Respiratory Rate 30 H 24 25 H Respiratory Rate [ Right Elbow] Blood Pressure 144/82 H Blood Pressure [Le ft Arm] Blood Pressure [Le ft Upper Arm] Pulse Oximetry 98 97 98 Oxygen Delivery [facility] 12/29/24 20:45 12/29/24 21:00 12/29/24 21:02 Temperature Pulse Rate 69 70 70 Pulse Rate [Left P ulse Oximeter] Pulse Rate [Pulse Oximeter] Respiratory Rate 12 17 20 Respiratory Rate [ Right Elbow] Blood Pressure 141/82 H Blood Pressure [Le ft Arm] Blood Pressure [Le ft Upper Arm] Pulse Oximetry 98 98 98 Oxygen Delivery [facility] 12/29/24 21:03 12/29/24 21:50 12/29/24 22:16 Temperature 98.1 F Pulse Rate 74 Pulse Rate [Left P ulse Oximeter] Pulse Rate [Pulse Oximeter] 93 Respiratory Rate 18 20 20 Respiratory Rate [ Right Elbow] Blood Pressure Blood Pressure [Le ft Arm] 154/105 H Blood Pressure [Le ft Upper Arm] Pulse Oximetry 97 95 95 Oxygen Delivery [facility] Room Air Room Air 12/29/24 22:42 Temperature Pulse Rate Pulse Rate [Left P ulse Oximeter] Pulse Rate [Pulse Oximeter] Respiratory Rate 20 Respiratory Rate [ Right Elbow] Blood Pressure Blood Pressure [Le ft Arm] Blood Pressure [Le ft Upper Arm] Pulse Oximetry 95 Oxygen Delivery [facility] Room Air Hospitalist - H&P: Result Labs Labs: Short CBC 12/29/24 Range/Units 18:30 WBC 10.72 (4.50-11.00) K/uL Hgb 15.5 (12.0-16.0) gm/dL Hct 45.0 (33.0-51.0) % Plt Count 240 (140-440) K/uL BMP 12/29/24 18:30 Sodium 141 Potassium 3.4 L Chloride 105 Carbon Dioxide 21 BUN 14 Creatinine 0.5 Glucose 75 Calcium 9.3 Liver Function 12/29/24 Range/Units 18:30 Total Bilirubin 0.8 (0.1-1.5) mg/dL Direct Bilirubin 0.4 (0.0-0.5) mg/dL AST 58 H (12-35) U/L ALT 29 (4-35) U/L Alkaline Phosphatase 84 (40-150) U/L Albumin 4.7 (3.3-5.0) g/dL Urine 12/29/24 Range/Units 21:45 Urine Color Yellow (Yellow) Urine Appearance Clear (Clear) Urine pH 6.0 (5.0-8.5) Ur Specific [place] 1.020 (1.000-1.030) Urine Protein Negative (Negative) Urine Glucose (UA) Negative (Negative) ECG ECG interpretation date: 12/29/24 Interpretation: Normal sinus rhythm Imaging X-ray of right elbow: Radiologist's impression: Displaced olecranon fracture with posterior and superior displacement of the proximal fracture segment by approximately [address] scan - head: Radiologist's impression: FINDINGS: CSF spaces: Within normal limits for age. Brain parenchyma and extra-axial spaces: There are nonspecific low attenuation white matter changes consistent with chronic microvascular disease. Mild diffuse atrophy. No sign of mass, hemorrhage, or midline shift. Skull base and calvarium: Minimal fluid in the left sphenoid sinus. Otherwise, the visualized paranasal sinuses and mastoid air cells demonstrate no acute or significant findings. The visualized orbits are grossly unremarkable. No skull fractures. IMPRESSION: No acute intracranial process identified. No intracranial hemorrhage identified. CT scan - cervical spine: Radiologist's impression: FINDINGS: Vertebrae: Alignment is normal. There are no fractures or suspicious bony lesions. Discs and facet joints: There are diffuse degenerative changes in the disc spaces and facet joints. Extraspinal findings: Paraspinous soft tissues are unremarkable. IMPRESSION: 1. No sign of acute injury. 2. Multilevel degenerative spondylosis. Assessment and Plan Assessment and plan (1) Inability to walk: Problem comment: - acute on chronic, seems like ataxia - D/Dx: vit B 12 deficiency, vit B1 deficiency (Wernicke syndrome), cerebellar dysfunction, etc. Doubt folate deficiency, since she has been on folate supplementation for years - MR of the brain on 11/18/2024 demonstrated no acute infarction or other acute intracranial pathology and mild chronic microvascular ischemic changes and moderate generalized parenchymal volume loss. - check vitamin B12 level. - PT and OT to consult, assess - director social service to assist with discharge disposition planning as well as advisement for patient regarding chemical use assessment and recommendations for treatment Status: Acute (2) Alcohol use disorder: Problem comment: - consumes 6 shots of cammy daily - has suffered multiple falls in association with alcohol consumption including having sustained fractures in consequence of the same, most recently the right olecranon - is willing to discuss with our social welfare clerk staff regarding possible outpatient evaluation and treatment - monitor for alcohol withdrawal and for now will treat with CIWA if warranted Status: Acute (3) Closed fracture of right olecranon process: Problem comment: - Displaced olecranon fracture with posterior and superior displacement of the proximal fracture segment by approximately 2 centimeters, placed in splint on 12/28/2024 - has tentative plans of surgical repair on witness day 01/01/[address] Ovi Sage Status: Acute (4) Tobacco use disorder: Problem comment: - smokes tobacco 1/2 pack per day for 60 years - nicotine patch 21 mg daily for now Status: Acute (5) Osteopenia: Status: Acute (6) Cancer of left breast, stage 1, estrogen receptor positive: Problem comment: - Multifocal stage IA left breast cancer, ER positive, AR positive, HER2 of 1+ IHC - working with Dr. Kay, Oncology, and presently being treated with anastrozole 1 mg daily - hold anastrozole while in hospital for now Status: Acute Plan 1. Reviewed impression with patient, son, [id number] 2. Answered their questions to their satisfaction 3. They are agreeable with above stated plans and recommendations Total Time Spent Total Time Spent: 70 minutes
[2024-12-29] MEDS: NICOTINE 21 MG PATCH 1 PATCH TRANSDERMA (23:09)
[2024-12-29] MEDS: THIAMINE 100 MG TABLET PO (23:09)
[2024-12-30] VITALS (7 sets, daily range): BP systolic 113–158; BP diastolic 68–90; PULSE 66–96; RESP 16–20; TEMP 36.1–37.3; O2SAT 96–98
[2024-12-30 02:14] LABS: Vitamin B12* 600 pg/mL (243-894)
[2024-12-30] MEDS: LEVOTHYROXINE 88 MCG TABLET PO (06:03)
[2024-12-30 06:27] LABS: Lactate* 0.9 mmol/L (0.5-1.9)
[2024-12-30 06:43] LABS: Hematocrit 40.3 % (33.0-51.0); Hemoglobin* 13.8 gm/dL (12.0-16.0); Mean Corpuscular HGB Conc 34 gm/dL (32-36); Mean Corpuscular Hemoglobin 35 pg (26-34); Mean Corpuscular Volume 103 fL (80-100); Platelet Count* 222 K/uL (140-440); White Blood Count* 10.45 K/uL (4.50-11.00)
--- NOTE | 2024-12-30 06:49 | PC.NURSE ---
19-: pleasant and cooperative. A x 1. Right arm in sling. no c/o pain this shift. VSS. CIWAs neg.
[2024-12-30 06:59] LABS: Albumin* 4.2 g/dL (3.3-5.0); Chloride* 104 mmol/L (96-114); Potassium* 3.8 mmol/L (3.6-5.1); Sodium* 138 mmol/L (135-149)
[2024-12-30 07:01] LABS: Bilirubin Total* 1.1 mg/dL (0.1-1.5); Creatinine* 0.5 mg/dL (0.5-1.5); Estimated Glomerular Filt Rate 98 ml/min
[2024-12-30 07:02] LABS: Alanine Aminotransferase* 26 U/L (4-35); Alkaline Phosphatase* 72 U/L (40-150); Anion Gap 15 mEq/L (7-15); Aspartate Amino Transferase* 47 U/L (12-35); Blood Urea Nitrogen* 14 mg/dL (7-30); Calcium* 9.1 mg/dL (8.4-10.6); Carbon Dioxide* 19 mmol/L (20-32); Glucose* 57 mg/dL (60-115); Phosphorus* 3.3 mg/dL (2.5-4.5); Total Protein* 6.1 g/dL (6.0-8.3)
[2024-12-30 07:03] LABS: Magnesium* 1.8 mg/dL (1.5-2.6)
[2024-12-30 07:04] LABS: Slide Review Reflex No
[2024-12-30] MEDS: AMLODIPINE 5 MG TABLET PO (09:27)
[2024-12-30] MEDS: ACETAMINOPHEN 325 MG TABLET 650 MG PO (09:27)
[2024-12-30] MEDS: ESCITALOPRAM 10 MG TABLET 20 MG PO (09:27)
[2024-12-30] MEDS: ASPIRIN 81 MG TABLET EC PO (09:27)
[2024-12-30] MEDS: FOLIC ACID 1 MG TABLET PO (09:27)
[2024-12-30] MEDS: HYDROXYCHLOROQUINE 200 MG TABLET PO (09:27)
[2024-12-30] MEDS: SODIUM CHLORIDE 0.9 % (FLUSH) 10 ML SYRINGE 5 ML IVF ×2 (09:28→21:19)
--- NOTE | 2024-12-30 09:55 | PM.IMPN1 ---
Progress Note: A&P Assessment and plan (1) Inability to walk: Problem details: - acute on chronic, c/w ataxia - ddx: vit B 12 deficiency, vit B1 deficiency (Wernicke syndrome), cerebellar dysfunction, etc. Unlikey folate deficiency, she has been on folate supplementation for years - MRI brain 11/18/24: no acute infarction or other acute intracranial pathology, mild chronic microvascular ischemic changes, mod generalized parenchymal volume loss - B12 600 on 12/29/24 - PT and OT to consult, assess - hospital social worker to assist with discharge disposition planning as well as advisement for patient regarding chemical use assessment and recommendations for treatment Status: Acute (2) Alcohol use disorder: Problem details: - consumes 6 shots of charline daily for the past 12-18 months, last drink 1100 12/29/24 - has suffered multiple falls in association with alcohol consumption including having sustained fractures in consequence of the same, most recently the right olecranon - is willing to discuss with our nursing home social worker staff regarding possible outpatient evaluation and treatment - monitor for alcohol withdrawal and for now will treat with CIWA if warranted Status: Acute (3) Closed fracture of right olecranon process: Problem details: - Displaced olecranon fracture with posterior and superior displacement of the proximal fracture segment by approximately 2 centimeters, placed in splint on 12/28/2024 - has tentative plans of surgical repair on 01/01/[address] Ovi Sage Status: Acute (4) Tobacco use disorder: Problem details: - smokes tobacco 1/2 pack per day for 60 years - nicotine patch 21 mg daily for now Status: Acute (5) Osteopenia: Status: Acute (6) Cancer of left breast, stage 1, estrogen receptor positive: Problem details: - Multifocal stage IA left breast cancer, ER positive, [place] positive, HER2 of 1+ IHC - working with Dr. Kay, Oncology, and presently being treated with anastrozole 1 mg daily - hold anastrozole while in hospital for now Status: Acute (7) Chronic rheumatic arthritis: Problem details: - on Methotrexate M/T each week, holding 12/30/24 given upcoming surgery Status: Acute Plan - per above - appreciate input from PT/OT/SW regarding disposition assistance - ppx: TEDs, SCDs (holding home ASA given upcoming surgery) Subjective Date Seen: 12/30/24 Interval history: Itzel was admitted last night for difficulty with ADLs at home in the setting of recurrent falls and recent R olecranon fracture. This morning, she notes mild R elbow pain, no other concerns. Amenable to SNF stay, also interested in sobriety from ETOH (daily drinking for the past 12-18 months, last drink 11am on 12/29/24). No history of withdrawal. Exam Narrative: Exam Narrative: GEN: Alert and oriented, nontoxic, answering questions appropriately HEENT: EOMIs bilaterally, no scleral icterus CV: RRR, No concerning murmurs, rubs, or gallops R: LCTA bilaterally without concerning wheezing, rales, or rhonchi Ext: Splinted R elbow, normal ROM and capillary refill R fingers, + mild R hand edema Skin: Significant bruising RUE, proximal to fracture Neuro: No focal deficits, no resting tremor Psych: Appropriate Const: Vital Signs, click to edit/add: Vital Signs - 24 hr 12/29/24 18:00 12/29/24 18:22 12/29/24 18:51 Temperature 98.2 F Pulse Rate Pulse Rate [Left P ulse Oximeter] 70 Pulse Rate [Pulse Oximeter] Respiratory Rate 18 Respiratory Rate [ Right Elbow] 18 Blood Pressure Blood Pressure [Le ft Arm] Blood Pressure [Le ft Upper Arm] 111/76 Pulse Oximetry 97 [facility] 12/29/24 19:17 12/29/24 19:30 12/29/24 19:32 Temperature Pulse Rate 71 67 83 Pulse Rate [Left P ulse Oximeter] Pulse Rate [Pulse Oximeter] Respiratory Rate 21 16 22 Respiratory Rate [ Right Elbow] Blood Pressure 151/87 H Blood Pressure [Le ft Arm] Blood Pressure [Le ft Upper Arm] Pulse Oximetry 100 97 95 [facility] 12/29/24 19:45 12/29/24 20:00 12/29/24 20:02 Temperature Pulse Rate 83 69 70 Pulse Rate [Left P ulse Oximeter] Pulse Rate [Pulse Oximeter] Respiratory Rate 12 8 L 15 Respiratory Rate [ Right Elbow] Blood Pressure 156/85 H Blood Pressure [Le ft Arm] Blood Pressure [Le ft Upper Arm] Pulse Oximetry 97 98 97 [facility] 12/29/24 20:19 12/29/24 20:30 12/29/24 20:32 Temperature Pulse Rate 86 72 71 Pulse Rate [Left P ulse Oximeter] Pulse Rate [Pulse Oximeter] Respiratory Rate 30 H 24 25 H Respiratory Rate [ Right Elbow] Blood Pressure 144/82 H Blood Pressure [Le ft Arm] Blood Pressure [Le ft Upper Arm] Pulse Oximetry 98 97 98 Oxygen Delivery [facility] 12/29/24 20:45 12/29/24 21:00 12/29/24 21:02 Temperature Pulse Rate 69 70 70 Pulse Rate [Left P ulse Oximeter] Pulse Rate [Pulse Oximeter] Respiratory Rate 12 17 20 Respiratory Rate [ Right Elbow] Blood Pressure 141/82 H Blood Pressure [Le ft Arm] Blood Pressure [Le ft Upper Arm] Pulse Oximetry 98 98 98 Oxygen Delivery [facility] 12/29/24 21:03 12/29/24 21:50 12/29/24 22:16 Temperature 98.1 F Pulse Rate 74 Pulse Rate [Left P ulse Oximeter] Pulse Rate [Pulse Oximeter] 93 Respiratory Rate 18 20 20 Respiratory Rate [ Right Elbow] Blood Pressure Blood Pressure [Le ft Arm] 154/105 H Blood Pressure [Le ft Upper Arm] Pulse Oximetry 97 95 95 Oxygen Delivery [facility] Room Air Room Air 12/29/24 22:42 12/29/24 23:00 12/29/24 23:00 Temperature 98.4 F Pulse Rate Pulse Rate [Left P ulse Oximeter] Pulse Rate [Pulse Oximeter] 94 Respiratory Rate 20 20 20 Respiratory Rate [ Right Elbow] Blood Pressure Blood Pressure [Le ft Arm] 152/78 H Blood Pressure [Le ft Upper Arm] Pulse Oximetry 95 93 Oxygen Delivery [facility] Room Air Room Air 12/30/24 03:00 12/30/24 07:00 12/30/24 07:00 Temperature 98.7 F Pulse Rate Pulse Rate [Left P ulse Oximeter] Pulse Rate [Pulse Oximeter] 78 84 Respiratory Rate 20 18 18 Respiratory Rate [ Right Elbow] Blood Pressure Blood Pressure [Le ft Arm] 148/79 H Blood Pressure [Le ft Upper Arm] Pulse Oximetry 96 98 Oxygen Delivery [facility] Room Air Room Air 12/30/24 07:00 Temperature 99.2 F Pulse Rate Pulse Rate [Left P ulse Oximeter] Pulse Rate [Pulse Oximeter] 84 Respiratory Rate 18 Respiratory Rate [ Right Elbow] Blood Pressure Blood Pressure [Le ft Arm] 158/90 H Blood Pressure [Le ft Upper Arm] Pulse Oximetry 98 Oxygen Delivery [facility] Room Air Labs Labs: Laboratory Results - last 24 hr 12/29/24 12/29/24 12/29/24 18:23 18:30 21:45 WBC 10.72 RBC 4.38 Hgb 15.5 Hct 45.0 MCV 103 H MCH 35 H MCHC 34 RDW Coeff of Kathya 15.0 Plt Count 240 Neut % (Auto) 67.4 Lymph % (Auto) 21.5 [place] % (Auto) 9.6 Eos % (Auto) 0.7 Baso % (Auto) 0.1 Neut # (Auto) 7.23 H Lymph # (Auto) 2.30 [place] # (Auto) 1.00 H Eos # (Auto) 0.07 Baso # (Auto) 0.01 Abs Immat Gran (auto) 0.08 Imm/Tot Granulo (auto) 0.7 Sodium 141 Potassium 3.4 L Chloride 105 Carbon Dioxide 21 Anion Gap 15 BUN 14 Creatinine 0.5 Estimated Creat Clear 45.50 Estimated GFR 98 Glucose 75 Lactate 3.3 H Calcium 9.3 Phosphorus Magnesium Total Bilirubin 0.8 Direct Bilirubin 0.4 AST 58 H ALT 29 Alkaline Phosphatase 84 Total Protein 7.0 Albumin 4.7 Amylase 63 Vitamin B12 600 Urine Color Yellow Urine Appearance Clear Urine pH 6.0 Ur Specific [place] 1.020 Urine Protein Negative Urine Glucose (UA) Negative Urine Ketones 2+ A Urine Blood 1+ A Urine Nitrite Negative Urine Bilirubin Negative Urine Urobilinogen 1.0 Ur Leukocyte Esterase Negative Urine RBC 0-2 Urine WBC 0-2 Ur Squamous Epith Cells Few Urine Bacteria Few A Ethyl Alcohol 0.01 SARS-CoV-2 (PCR) Negative SARS-CoV-2 Influenza Type A (PCR) Negative PCR FLU A Influenza Type B (PCR) Negative PCR FLU B RSV (PCR) Negative PCR RSV Lab Acknowledgement POC Troponin I 0.03 12/29/24 12/30/24 21:52 06:08 WBC 10.45 RBC 3.90 L Hgb 13.8 Hct 40.3 MCV 103 H MCH 35 H MCHC 34 RDW Coeff of Kathya Plt Count 222 Neut % (Auto) Lymph % (Auto) [place] % (Auto) Eos % (Auto) Baso % (Auto) Neut # (Auto) Lymph # (Auto) [place] # (Auto) Eos # (Auto) Baso # (Auto) Abs Immat Gran (auto) Imm/Tot Granulo (auto) Sodium 138 Potassium 3.8 Chloride 104 Carbon Dioxide 19 L Anion Gap 15 BUN 14 Creatinine 0.5 Estimated Creat Clear 45.50 Estimated GFR 98 Glucose 57 L Lactate 0.9 Calcium 9.1 Phosphorus 3.3 Magnesium 1.8 Total Bilirubin 1.1 Direct Bilirubin AST 47 H ALT 26 Alkaline Phosphatase 72 Total Protein 6.1 Albumin 4.2 Amylase Vitamin B12 Urine Color Urine Appearance Urine pH Ur Specific [place] Urine Protein Urine Glucose (UA) Urine Ketones Urine Blood Urine Nitrite Urine Bilirubin Urine Urobilinogen Ur Leukocyte Esterase Urine RBC Urine WBC Ur Squamous Epith Cells Urine Bacteria Ethyl Alcohol SARS-CoV-2 (PCR) Influenza Type A (PCR) Influenza Type B (PCR) RSV (PCR) Lab Acknowledgement Test Added POC Troponin I
--- NOTE | 2024-12-30 10:26 | NUTR.NU ---
RDN with MD consult for weight loss. Patient admitted for recurrent falls, inability to walk, and elbow fracture. Medical history significant for Cancer of left breast, stage 1, Fibromyalgia, Hypertension, Chronic low back pain, and alcohol use disorder. Weight 154 lb 1.6oz; height 5ft 6in; BMI 24.9 kg/m2. Patient reports a usual body weight of about 160 lbs. Weight history shows some weight loss but not significant. Current diet is Regular. No meal intakes recorded yet to assess. RDN visited with patient whom reports low appetite. She eats about 2 meals daily with multiple alcoholic shots. She reports she would rather consume alcohol than have add another snack during the day. Reviewed the benefits of a high protein, high calorie diet during treatment, especially if appetite and intakes are low. ?Discussed foods that are high in calories and protein, as well as the use of nutrition supplements such as Ensure Enlive and Boost to help meet daily energy needs. Also discussed frequent small meals (5-6x/day) may be more easily managed instead of 3 big meals daily. Highly encouraged patient to include solid food more often versus alcohol. Offered educational handouts, however patient declined at this time. Patient verbalized understanding. Patient was encouraged to let staff know if she has any questions or concerns. Will continue to monitor.
[2024-12-30] MEDS: PHENobarbitaL 260 MG in 0.9 % SODIUM CHLORIDE 100 ml 100 ML 208 MG IVPB (14:29)
[2024-12-30 15:43] LABS: Iron* 134 ug/dL (37-170)
[2024-12-30 15:52] LABS: Percent Iron Saturation 46 % (20-50); Total Iron Binding Capacity 290 ug/dL (265-497)
--- NOTE | 2024-12-30 16:15 | PC.SOCIAL ---
Discharge planning: Met with pt and son, Ronny, regarding d/c plan. Son and pt are requesting short term placement in a group home facility for care after surgery on Monday. Son is interested in a facility that also has substance rehab or who could assist in looking for nursing home sober placement after a short term rehab stay. Pt is sharing that she wants a short term stay but then is interested in getting help in her home so she can return to her home. Discussed how both of these options might be facilitated from a group home stay. Explained to son and pt that the history of alcohol use could make placement more challenging and that many facilities have declined pt's admit in the past because of this. Shared with pt and son that there is one facility that [facility] both the [facility] and [facility]. Son requested social sciences chair find out if this facility is contracted with pt's insurance. Provided pt and son with a list of [facility] contracted group home facilities. Contacted the following facilities at pt and son's request. 1. [facility] (not on contracted list but requested by pt) - Emailed about bed availability. 2. [facility] - Emailed about bed availability. 3. [facility] - including [facility] and [facility]. Emailed Matt in admissions about bed availability. 4. [facility] -Emailed Ava about bed availability. 5. [facility] - Emailed Anthony asking if any of their contracted facilities had availability. 6. [facility] - Called to ask if this facility is contracted with her insurance and spoke with someone in the billing office who stated the correct person to talk with was not there and suggested social sciences chair call back tomorrow. lubrication worker to follow up as needed.
[2024-12-30] MEDS: LORazepam 0.5 MG TABLET PO ×3 (16:38→23:27)
[2024-12-30] MEDS: ROSUVASTATIN CALCIUM 10 MG TABLET PO (18:32)
--- NOTE | 2024-12-30 19:16 | PC.NURSE ---
End of shift: patient alert and oriented. VSS. RA. tolerating a reg diet. Patient rated pain 4/10. PRN tylenol administered x1. Patient up to bedside commode SBA. CIWA scores . Patient stated she feels sweaty and anxious and a little shaky after working with PT. notified and Phenobarbital administered w/relief.
[2024-12-30] MEDS: clonazePAM 0.5 MG TABLET 1 MG PO (21:18)
[2024-12-30] MEDS: THIAMINE 100 MG TABLET PO (21:18)
[2024-12-30] MEDS: GABAPENTIN 300 MG CAPSULE PO (21:18)
[2024-12-30] MEDS: ENOXAPARIN 40 MG/0.4 ML INJ SUBCUT (21:19)
[2024-12-30] MEDS: NICOTINE 21 MG PATCH 1 PATCH TRANSDERMA (21:22)
[2024-12-31] VITALS (8 sets, daily range): BP systolic 116–145; BP diastolic 76–89; PULSE 62–99; RESP 16–20; TEMP 35.8–37.3; O2SAT 93–96
[2024-12-31] MEDS: LORazepam 0.5 MG TABLET PO ×5 (03:12→23:45)
[2024-12-31] MEDS: LEVOTHYROXINE 88 MCG TABLET PO (06:35)
--- NOTE | 2024-12-31 06:50 | PC.NURSE ---
End of shift report [id number]: Pleasant and cooperative with cares. At 1900 patient was profusely sweating, patient feels is due to missing her cancer medication, per her primary if she misses the medication it can cause menopause type symptoms. Ice pack placed at the back of the neck and scheduled dose of ativan administered and patient reports resolution of sweating. CIWA's 7, 2 and 2. Patient having difficulty sleeping and feeling 'uncomfortable. Patient was able to sleep for 1.5-2.5 hours after each dose of ativan but reports effects wore off prior to next available dose. Pain to right elbow managed with positioning and use of sling. Transfers to [facility] with A 1-2 pivot transfer. CMS to right hand intact, patient able to wiggle fingers.
[2024-12-31 07:03] LABS: Basophils Absolute Auto 0.01 K/uL (0.00-0.30); Basophils Percent Auto 0.1 % (0.0-3.0); Eosinophils Absolute Auto 0.13 K/uL (0.00-0.50); Eosinophils Percent Auto 1.7 % (0.0-7.0); Hematocrit 41.4 % (33.0-51.0); Hemoglobin* 14.2 gm/dL (12.0-16.0); Immature Granulocytes Abs Auto 0.03 K/uL (0.00-0.30); Immature Granulocytes Pct Auto 0.4 %; Lymphocytes Absolute Auto 1.62 K/uL (0.90-2.90); Mean Corpuscular HGB Conc 34 gm/dL (32-36); Mean Corpuscular Hemoglobin 36 pg (26-34); Mean Corpuscular Volume 105 fL (80-100); Monocytes Percent Auto 13.3 % (0.0-11.0); Neutrophils Percent Auto 63.5 % (42.0-72.0); Platelet Count* 174 K/uL (140-440); Red Blood Count 3.95 m/uL (4.00-5.20); Slide Review Reflex No; White Blood Count* 7.72 K/uL (4.50-11.00)
[2024-12-31 07:07] LABS: Chloride* 101 mmol/L (96-114)
[2024-12-31 07:08] LABS: Potassium* 3.7 mmol/L (3.6-5.1); Sodium* 133 mmol/L (135-149)
[2024-12-31 07:10] LABS: Creatinine* 0.4 mg/dL (0.5-1.5); Estimated Glomerular Filt Rate 103 ml/min
[2024-12-31 07:11] LABS: Anion Gap 8 mEq/L (7-15); Blood Urea Nitrogen* 15 mg/dL (7-30); Calcium* 9.3 mg/dL (8.4-10.6); Carbon Dioxide* 24 mmol/L (20-32); Glucose* 101 mg/dL (60-115)
[2024-12-31] MEDS: HYDROXYCHLOROQUINE 200 MG TABLET PO (08:46)
[2024-12-31] MEDS: AMLODIPINE 5 MG TABLET PO (08:46)
[2024-12-31] MEDS: ESCITALOPRAM 10 MG TABLET 20 MG PO (08:46)
[2024-12-31] MEDS: FOLIC ACID 1 MG TABLET PO (08:46)
[2024-12-31] MEDS: GABAPENTIN 300 MG CAPSULE PO ×2 (08:46→21:24)
[2024-12-31] MEDS: SODIUM CHLORIDE 0.9 % (FLUSH) 10 ML SYRINGE 5 ML IVF ×2 (08:47→21:26)
--- NOTE | 2024-12-31 09:08 | P.IMPN_ITS ---
Progress Note: A&P Assessment and plan (1) Inability to walk: Problem details: - acute on chronic, c/w ataxia - ddx: vit B 12 deficiency, vit B1 deficiency (Wernicke syndrome), cerebellar dysfunction, etc. Unlikely folate deficiency, she has been on folate supplementation for years - MRI brain 11/18/24: no acute infarction or other acute intracranial pathology, mild chronic microvascular ischemic changes, mod generalized parenchymal volume loss - B12 600 on 12/29/24 - PT and OT following, SW assisting with discharge planning as well Status: Acute (2) Alcohol use disorder: Problem details: - has consumed 6 shots of charline daily for the past 12-18 months, last drink 1100 12/29/24 - has suffered multiple falls in association with alcohol consumption including having sustained fractures in consequence of the same, most recently the right olecranon - committed to sobriety - on scheduled low dose Lorazepam and scheduled Gabapentin, received 1 dose of Phenobarbital 12/30/24 - continue to follow CIWA scores Status: Acute (3) Closed fracture of right olecranon process: Problem details: - Displaced olecranon fracture with posterior and superior displacement of the proximal fracture segment by approximately 2 centimeters, placed in splint on 12/28/2024 - current plan: surgical repair on 01/01/[address] Ovi Sage Status: Acute (4) Tobacco use disorder: Problem details: - smokes tobacco 1/2 pack per day for 60 years - nicotine patch 21 mg daily for now Status: Acute (5) Cancer of left breast, stage 1, estrogen receptor positive: Problem details: - Multifocal stage IA left breast cancer, ER positive, [place] positive, HER2 of 1+ IHC - working with Dr. Kay, Oncology, and presently being treated with anastrozole 1 mg daily Status: Acute (6) Chronic rheumatic arthritis: Problem details: - on Methotrexate M/T each week, holding 12/30/24 given upcoming surgery Status: Acute Plan - per above (CIWA, ETOH withdrawal treatment) - Dr. Sage to assess today for surgery 01/01 - continue PT/OT, SW assisting with placement - Lovenox for ppx Subjective Date Seen: 12/31/24 Interval history: Itzel was admitted on 12/29/24 for worsening ataxia, recurrent falls and difficulty safely performing ADLs in the setting of recent R olecranon fracture. Known ETOH use disorder (daily drinking for >1 year, last drink 1100 12/29/24). Noted to have symptoms of withdrawal on 12/30/24, given 1 dose of IV Phenobarbital + scheduled Gabapentin and Lorazepam. She is committed to cessation of ETOH at this time. Working with therapies. Tolerating po intake with mild nausea, no vomiting or diarrhea. Still having mild R elbow pain, no other concerns for hospitalist team. Exam Narrative: Exam Narrative: GEN: Alert and oriented, sitting comfortably in bedside chair and finishing breakfast when I see her HEENT: EOMIs bilaterally, no scleral icterus CV: RRR, No concerning murmurs R: LCTA bilaterally without concerning wheezing, air movement is adequate Ext: R elbow in splint/sling, + bruising proximally and edema of R hand with normal ROM and sensation of R fingers Skin: Scattered bruising, no other concerning skin lesions Neuro: No focal deficits or resting tremor noted, gait not observed today Psych: Appropriate Const: Vital Signs, click to edit/add: Vital Signs - 24 hr 12/30/24 11:00 12/30/24 11:00 12/30/24 15:00 Temperature 98.5 F Pulse Rate Pulse Rate [Pulse Oximeter] 93 96 95 Respiratory Rate 16 16 18 Blood Pressure [Le ft Arm] 135/86 135/86 Pulse Oximetry 96 [facility] 12/30/24 15:00 12/30/24 15:00 12/30/24 15:00 Temperature 97.7 F 97.7 F Pulse Rate Pulse Rate [Pulse Oximeter] 95 95 Respiratory Rate 18 18 18 Blood Pressure [Le ft Arm] 113/68 113/68 Pulse Oximetry 96 96 [address] [facility] Room Air Room Air Room Air 12/30/24 18:52 12/30/24 19:00 12/30/24 23:00 Temperature 96.9 F L Pulse Rate 84 66 Pulse Rate [Pulse Oximeter] 78 Respiratory Rate 18 Blood Pressure [Le ft Arm] 129/74 Pulse Oximetry 96 [facility] 12/30/24 23:00 12/30/24 23:00 12/30/24 23:00 Temperature 97.0 F L Pulse Rate Pulse Rate [Pulse Oximeter] 66 66 Respiratory Rate 16 16 16 Blood Pressure [Le ft Arm] 143/87 H Pulse Oximetry 96 96 Oxygen Delivery [facility] Room Air Room Air 12/31/24 03:00 12/31/24 07:59 12/31/24 07:59 Temperature 97.0 F L 97.5 F L Pulse Rate Pulse Rate [Pulse Oximeter] 70 74 Respiratory Rate 18 18 18 Blood Pressure [Le ft Arm] 145/89 H 129/82 Pulse Oximetry 95 96 96 Oxygen Delivery [facility] Room Air Room Air Room Air 12/31/24 08:20 Temperature Pulse Rate 77 Pulse Rate [Pulse Oximeter] Respiratory Rate Blood Pressure [Le ft Arm] Pulse Oximetry Oxygen Delivery Me [facility]od Labs Labs: Laboratory Results - last 24 hr 12/30/24 12/31/24 06:08 06:31 WBC 7.72 RBC 3.95 L Hgb 14.2 Hct 41.4 MCV 105 H MCH 36 H MCHC 34 RDW Coeff of Kathya 15.0 Plt Count 174 Neut % (Auto) 63.5 Lymph % (Auto) 21.0 [place] % (Auto) 13.3 H Eos % (Auto) 1.7 Baso % (Auto) 0.1 Neut # (Auto) 4.90 Lymph # (Auto) 1.62 [place] # (Auto) 1.00 H Eos # (Auto) 0.13 Baso # (Auto) 0.01 Abs Immat Gran (auto) 0.03 Imm/Tot Granulo (auto) 0.4 Sodium 133 L Potassium 3.7 Chloride 101 Carbon Dioxide 24 Anion Gap 8 BUN 15 Creatinine 0.4 L Estimated Creat Clear 45.50 Estimated GFR 103 Glucose 101 Calcium 9.3 Iron 134 TIBC 290 % Saturation 46
--- NOTE | 2024-12-31 17:25 | PC.SOCIAL ---
Discharge planning: Continued to look for rehab placement for pt at discharge after elbow surgery this week. Contacted the following facilities with the listed results: 1. [facility] - Left message and did not receive a call back about whether they have availability for admit. 2. [facility] system - including [facility] and [facility] [place]. [facility] emailed Matt in admissions about bed availability. Matt shared they would not be able to assess pt for admit until she has been off of CIWA precautions for 24 hours. 3. [facility] emailed pt's information for evaluation for admit. [facility] called back and stated they can likely accept pt for admit after surgery but final determination will be made after chart information and discharge needs are sent to them for review after surgery. Ava states they will only have a shared room and pt will need prior auth from her insurance. [place] is a smoke free campus, and patient needs to agree to not smoke on their campus. dry house worker to follow up as needed.
[2024-12-31] MEDS: ROSUVASTATIN CALCIUM 10 MG TABLET PO (18:29)
[2024-12-31] MEDS: LACTATED RINGERS 1000 ML 1,000 ML 75 ML IV (21:23)
[2024-12-31] MEDS: ENOXAPARIN 40 MG/0.4 ML INJ SUBCUT (21:24)
[2024-12-31] MEDS: THIAMINE 100 MG TABLET PO (21:24)
[2024-12-31] MEDS: clonazePAM 0.5 MG TABLET 1 MG PO (21:24)
[2024-12-31] MEDS: NICOTINE 21 MG PATCH 1 PATCH TRANSDERMA (21:25)
[2025-01-01] VITALS (31 sets, daily range): BP systolic 104–149; BP diastolic 75–92; PULSE 65–88; RESP 14–18; TEMP 36–36.7; O2SAT 89–100
[2025-01-01] MEDS: LORazepam 0.5 MG TABLET PO ×2 (03:20→08:17)
[2025-01-01] MEDS: LEVOTHYROXINE 88 MCG TABLET PO (06:12)
[2025-01-01 06:20] LABS: Chloride* 103 mmol/L (96-114)
[2025-01-01 06:21] LABS: Potassium* 3.3 mmol/L (3.6-5.1); Sodium* 132 mmol/L (135-149)
[2025-01-01 06:23] LABS: Blood Urea Nitrogen* 13 mg/dL (7-30); Creatinine* 0.4 mg/dL (0.5-1.5); Estimated Glomerular Filt Rate 103 ml/min
[2025-01-01 06:24] LABS: Anion Gap 6 mEq/L (7-15); Calcium* 8.8 mg/dL (8.4-10.6); Carbon Dioxide* 23 mmol/L (20-32); Glucose* 90 mg/dL (60-115)
--- NOTE | 2025-01-01 06:46 | PC.NURSE ---
End of shift report [id number]: Alert and oriented x 4. Pain to right elbow well managed with positioning and ice. Denies any shortness of breath or chest pain. Right arm wrapped in cast from mid bicep through top part of hand. CMS to right hand intact, patient is able to wiggle fingers and cap refill <3 seconds. Patient NPO at midnight. IV to left AC causing discomfort to patient, IV discontinued and new IV placed to left wrist, patent and asymptomatic. Transfers with heavy assist x 1 to pivot onto commode or moderate assist x 2 to BSC.
[2025-01-01] MEDS: POTASSIUM CHLORIDE 10 MEQ/100 ML PIGGYBACK 100 MEQ IVPB ×2 (08:16→09:52)
[2025-01-01] MEDS: ESCITALOPRAM 10 MG TABLET 20 MG PO (08:50)
[2025-01-01] MEDS: GABAPENTIN 300 MG CAPSULE PO ×2 (08:50→22:05)
[2025-01-01] MEDS: HYDROXYCHLOROQUINE 200 MG TABLET PO (08:50)
[2025-01-01] MEDS: AMLODIPINE 5 MG TABLET PO (08:50)
[2025-01-01] MEDS: FOLIC ACID 1 MG TABLET PO (08:50)
--- NOTE | 2025-01-01 09:01 | PM.IMPN1 ---
Progress Note: A&P Assessment and plan (1) Inability to walk: Problem details: - acute on chronic, c/w ataxia, likely worsened by daily ETOH use - ddx: vit B 12 deficiency, vit B1 deficiency (Wernicke syndrome), cerebellar dysfunction, etc. Unlikely folate deficiency, on folate supplementation for years - MRI brain 11/18/24: no acute infarction or other acute intracranial pathology, mild chronic microvascular ischemic changes, mod generalized parenchymal volume loss - B12 600 on 12/29/24 - PT and OT following, SW assisting with discharge planning as well Status: Acute (2) Alcohol use disorder: Problem details: - has consumed 6 shots of charline daily for the past 12-18 months, last drink 1100 12/29/24 - has suffered multiple falls in association with alcohol consumption including having sustained fractures in consequence of the same, most recently the right olecranon - committed to sobriety - on scheduled low dose Lorazepam and scheduled Gabapentin, received 1 dose of Phenobarbital 12/30/24 - 01/01/25: CIWA scores low, stop scheduled Lorazepam, available prn Status: Acute (3) Closed fracture of right olecranon process: Problem details: - Displaced olecranon fracture with posterior and superior displacement of the proximal fracture segment by approximately 2 centimeters, placed in splint on 12/28/2024 - Surgical repair on 01/01/[address] Ovi Sage Status: Acute (4) Tobacco use disorder: Problem details: - smokes tobacco 1/2 pack per day for 60 years - nicotine patch 21 mg daily for now Status: Acute (5) Cancer of left breast, stage 1, estrogen receptor positive: Problem details: - Multifocal stage IA left breast cancer, ER positive, [place] positive, HER2 of 1+ IHC - working with Dr. Kay, Oncology, and presently being treated with anastrozole 1 mg daily Status: Acute (6) Chronic rheumatic arthritis: Problem details: - on Methotrexate M/T each week, holding 12/30/24 given upcoming surgery Status: Acute Plan - to surgery 01/01 - to SNF when be available Subjective Date Seen: 01/01/25 Interval history: Itzel was admitted on 12/29/24 for worsening of chronic ataxia, recurrent falls, difficulty safely performing ADLs in the setting of recent R olecranon fracture. Known ETOH use disorder (daily drinking for >1 year, last drink 1100 12/29/24). Noted to have symptoms of withdrawal on 12/30/24, given 1 dose of IV Phenobarbital + scheduled Gabapentin and Lorazepam. She is committed to cessation of ETOH at this time. Working with therapies, having surgery with Dr. Rodriguez today for her olecranon fracture. SNF stay recommended postoperatively. This morning, Itzel has no concerns for hospitalist team. No concerning symptoms of ETOH withdrawal. Exam Narrative: Exam Narrative: GEN: Alert and sitting comfortably in bedside chair, nontoxic HEENT: Wearing glasses, EOMIs bilaterally, no scleral icterus CV: RRR, No concerning murmurs R: LCTA bilaterally without concerning wheezing Ext: R UE splinted/sling, no concerning LE edema Skin: Bruising RUE, no other concerning skin lesions or rashes on exposed skin Neuro: Nonfocal limited exam, no concerning tremor Psych: Appropriate Const: Vital Signs, click to edit/add: Vital Signs - 24 hr 12/31/24 11:37 12/31/24 15:28 12/31/24 15:33 Temperature 98.7 F 99.2 F Pulse Rate 99 Pulse Rate [Pulse Oximeter] 87 96 Respiratory Rate 18 16 Blood Pressure [Le ft Arm] 125/80 124/76 Pulse Oximetry 93 94 Oxygen Delivery De thod Room Air Room Air 12/31/24 15:33 12/31/24 15:33 12/31/24 19:00 Temperature 99.2 F 97.2 F L Pulse Rate Pulse Rate [Pulse Oximeter] 96 82 Respiratory Rate 16 16 18 Blood Pressure [Le ft Arm] 124/76 116/83 Pulse Oximetry 94 94 93 Oxygen Delivery De thod Room Air Room Air Room Air 12/31/24 23:00 12/31/24 23:00 12/31/24 23:00 Temperature 96.5 F L Pulse Rate 65 Pulse Rate [Pulse Oximeter] 62 62 Respiratory Rate 20 20 Blood Pressure [Le ft Arm] 122/82 Pulse Oximetry 94 Oxygen Delivery De thod Room Air 12/31/24 23:00 01/01/25 03:00 01/01/25 07:18 Temperature 97.1 F L Pulse Rate 85 Pulse Rate [Pulse Oximeter] 73 Respiratory Rate 20 16 Blood Pressure [Le ft Arm] 131/81 Pulse Oximetry 94 [facility] 01/01/25 07:48 01/01/25 07:48 Temperature 97.8 F Pulse Rate Pulse Rate [Pulse Oximeter] 88 Respiratory Rate 16 16 Blood Pressure [Le ft Arm] 130/86 Pulse Oximetry 94 94 Oxygen Delivery De thod Room Air Room Air Labs Labs: Laboratory Results - last 24 hr 01/01/25 05:56 Sodium 132 L Potassium 3.3 L Chloride 103 Carbon Dioxide 23 Anion Gap 6 L BUN 13 Creatinine 0.4 L Estimated Creat Clear 45.50 Estimated GFR 103 Glucose 90 Calcium 8.8
--- NOTE | 2025-01-01 11:11 | PM.ORCN ---
History of Present Illness HPI Date Seen: 12/30/24 Consult date: 12/30/24 Chief complaint: Dizziness, fall Monday--R arm injury Narrative: Itzel is a 74 year old woman who presented [facility] due to difficulty at home given right olecranon fracture and limited use of the right upper extremity since she typically uses a walker for ambulation assistance. Her son accompanies her today but on my interview she provides the history. I saw her originally in clinic where she was found have a closed right olecranon fracture that was intra-articular and displaced. It occurred when she fell off of her toilet at home. It was worthy of surgery. We are planning to wait approximately 1 week given poor skin/soft tissue overlying the right posterior elbow. She returns to the hospital here on 12/30/2024 earlier than our planned surgery for 01/01/2025. I anticipate that her skin is still not going to be ready for surgery on 12/30/2024. Therefore, unfortunately she will likely need to stay in the hospital overnight 2 more nights until we can consider her surgery on 01/01/2025. Her pain is present in the posterior right elbow but not severe. It is manageable with oral analgesics. Upon admission to the hospital, Orthopedics it was consulted for timing and consideration of surgery. [facility] Medical History (Updated 12/31/24 @ 09:55 by Chantelle Crockett MD) Cancer of left breast, stage 1, estrogen receptor positive ?C50.912 - Malignant neoplasm of unspecified site of left female breast (ICD-10) ?Z17.0 - Estrogen receptor positive status [ER+] (ICD-10) Fibromyalgia ?M79.7 - Fibromyalgia (ICD-10) Hypertension ?I10 - Essential (primary) hypertension (ICD-10) Controlled substance agreement signed ?Z79.899 - Other long lines operator (current) drug therapy (ICD-10) Chronic rheumatic arthritis ?M06.9 - Rheumatoid arthritis, unspecified (ICD-10) Chronic low back pain ?M54.50 - Low back pain, unspecified (ICD-10) ?G89.29 - Other chronic pain (ICD-10) Adjustment disorder with depressed mood ?F43.21 - Adjustment disorder with depressed mood (ICD-10) Surgical History History of thumb surgery (11/27/02) ?Z98.890 - Other specified postprocedural states (ICD-10) 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) ?Z96.642 - Presence of left artificial hip joint (ICD-10) History of total right hip arthroplasty (09/19/12) ?Z96.641 - Presence of right artificial hip joint (ICD-10) History of YAG laser capsulotomy of lens of right eye ?Z98.41 - Cataract extraction status, right eye (ICD-10) History of phacoemulsification of cataract of left eye with intraocular lens implantation ?Z98.42 - Cataract extraction status, left eye (ICD-10) ?Z96.1 - Presence of intraocular lens (ICD-10) History of total abdominal hysterectomy ?Z90.710 - Acquired absence of both cervix and uterus (ICD-10) Hx of right cataract extraction ?Z98.41 - Cataract extraction status, right eye (ICD-10) Social History What is your current living situation?: I presently have a place to live Problems where you live: no known problems Problems where you live details: n/a In the past 12 months, utilities in danger of being shut off: no In past 12 months, lack of transportation kept you from medical appts, meetings, work, or getting things needed for daily living: no In the past 12 mos, have been you worried that your food would run out before you had money to buy more?: never true In the past 12 mos, the food you bought just didn't last and you didn't have money to buy more?: never true Highest level of school completed/degree received: Bachelor's degree Smoking Status: Current every day smoker What tobacco products do you use: cigarettes Smoking packs per day: 0.5 Smoking cigarettes per day: 10.0 Do you use any of these nicotine containing products: None How often do you have a drink containing alcohol: 4 or more times a week Alcohol type: hard liquor Alcohol type details: 1.75L E&J Cammy lasts pt 4 days How many standard drinks containing alcohol do you have on a typical day: 5 or 6 How often do you have six or more drinks on one occasion: Daily or almost daily AUDIT-C Alcohol total score: 10 Non-prescribed substance use: denies use Caffeine: Yes How often does anyone, including family, friends and others, physically hurt you: never How often does anyone, including family, friends and others, insult or talk down to you: never How often does anyone, including family, friends and others, threaten you with harm: never How often does anyone, including family, friends and others, scream or curse at you: rarely service: No Health Related Social Needs: Other personal risk factors, not elsewhere classified (Z91.89) Meds Home Medications and Allergies Home Medications ?Medication ?Instructions ?Recorded ?Confirmed ?Type cholecalciferol (vitamin D3) 25 1,000 unit PO DAILY 08/07/23 12/29/24 History mcg (1,000 unit) capsule hydroxychloroquine 200 mg tablet 200 mg PO DAILY 08/07/23 12/29/24 History levothyroxine 88 mcg tablet 88 mcg PO QAM 08/07/23 12/29/24 History methotrexate sodium 2.5 mg tablet 10 mg PO 2XW 08/07/23 12/29/24 History rosuvastatin 10 mg tablet 10 mg PO QPM 08/07/23 12/29/24 History albuterol sulfate 2.5 mg/3 mL 2.5 mg inhalation Q6-8H PRN 07/05/24 12/29/24 History (0.083 %) solution for nebulization amlodipine 5 mg tablet (Norvasc) 5 mg PO DAILY 07/05/24 12/29/24 History aspirin 81 mg tablet,delayed 81 mg PO DAILY 07/05/24 12/29/24 History release (Ecotrin Low Strength) clonazepam 0.5 mg tablet 1 mg PO HS 07/05/24 12/29/24 History escitalopram oxalate 20 mg tablet 20 mg PO DAILY 07/05/24 12/29/24 History folic acid 1 mg tablet 1 mg PO DAILY 07/05/24 12/29/24 History fluticasone furoate 100 1 inh inhalation QDAY 10/31/24 12/29/24 History mcg-vilanterol 25 mcg/dose inhalation powder (Breo Ellipta) Tylenol 12/29/24 History anastrozole 1 mg tablet 1 mg PO DAILY 12/30/24 12/30/24 History Allergies Allergy/AdvReac Type Severity Reaction Status Date / Time dexamethasone (From Maxitrol) Allergy Mild red, Verified 12/29/24 18:06 puffy, itchy eyes lidocaine Allergy Mild Rash Verified 12/29/24 18:06 neomycin (From Maxitrol) Allergy Mild red, Verified 12/29/24 18:06 puffy, itchy eyes polymyxin B (From Maxitrol) Allergy Mild red, Verified 12/29/24 18:06 puffy, itchy eyes Sulfa (Sulfonamide Allergy Mild Hives Verified 12/29/24 18:06 Antibiotics) varenicline (From Chantix) Allergy Verified 12/29/24 18:06 tegaderm Allergy Uncoded 12/27/24 09:13 Ortho Exam Narrative Exam Narrative: She is alert and oriented x3. Cooperative with my exam. No acute distress. She has not have any sweating actively taking place nor agitation on my interview. Exam the right upper extremity shows a long-arm splint being placed. Neurologic intact in the radial, ulnar, and median nerves to sensory light touch and motor function today. Digits pink, warm, brisk cap refill. Skin was not assessed on 12/30/2024 as it would be too early given the significant involvement from the soft tissue evaluation seen in clinic last week. Const Vital Signs, click to edit/add: Vital Signs - 24 hr 12/31/24 11:37 12/31/24 15:28 12/31/24 15:33 Temperature 98.7 F 99.2 F Pulse Rate 99 Pulse Rate [Pulse Oximeter] 87 96 Respiratory Rate 18 16 Blood Pressure [Left Arm] 125/80 124/76 Pulse Oximetry 93 94 Oxygen Delivery Method Room Air Room Air 12/31/24 15:33 12/31/24 15:33 12/31/24 19:00 Temperature 99.2 F 97.2 F L Pulse Rate Pulse Rate [Pulse Oximeter] 96 82 Respiratory Rate 16 16 18 Blood Pressure [Left Arm] 124/76 116/83 Pulse Oximetry 94 94 93 Oxygen Delivery Method Room Air Room Air Room Air 12/31/24 23:00 12/31/24 23:00 12/31/24 23:00 Temperature 96.5 F L Pulse Rate 65 Pulse Rate [Pulse Oximeter] 62 62 Respiratory Rate 20 20 Blood Pressure [Left Arm] 122/82 Pulse Oximetry 94 Oxygen Delivery Method Room Air 12/31/24 23:00 01/01/25 03:00 01/01/25 07:18 Temperature 97.1 F L Pulse Rate 85 Pulse Rate [Pulse Oximeter] 73 Respiratory Rate 20 16 Blood Pressure [Left Arm] 131/81 Pulse Oximetry 94 93 Oxygen Delivery Method Room Air Room Air 01/01/25 07:48 01/01/25 07:48 Temperature 97.8 F Pulse Rate Pulse Rate [Pulse Oximeter] 88 Respiratory Rate 16 16 Blood Pressure [Left Arm] 130/86 Pulse Oximetry 94 94 Oxygen Delivery Method Room Air Room Air Results Labs Labs: Laboratory Results - last 48 hr 12/30/24 12/31/24 01/01/25 06:08 06:31 05:56 WBC 7.72 RBC 3.95 L Hgb 14.2 Hct 41.4 MCV 105 H MCH 36 H MCHC 34 RDW Coeff of Kathya 15.0 Plt Count 174 Neut % (Auto) 63.5 Lymph % (Auto) 21.0 [place] % (Auto) 13.3 H Eos % (Auto) 1.7 Baso % (Auto) 0.1 Neut # (Auto) 4.90 Lymph # (Auto) 1.62 [place] # (Auto) 1.00 H Eos # (Auto) 0.13 Baso # (Auto) 0.01 Abs Immat Gran (auto) 0.03 Imm/Tot Granulo (auto) 0.4 Sodium 133 L 132 L Potassium 3.7 3.3 L Chloride 101 103 Carbon Dioxide 24 23 Anion Gap 8 6 L BUN 15 13 Creatinine 0.4 L 0.4 L Estimated Creat Clear 45.50 45.50 Estimated GFR 103 103 Glucose 101 90 Calcium 9.3 8.8 Iron 134 TIBC 290 % Saturation 46 Diagnostic results Additional Comments: Three views right elbow from [facility] dated 12/25/2024 that were ordered by different provider were again reviewed by me. This demonstrates a right intra-articular olecranon fracture with 1.5-1.8 cm retraction proximally. Radiocapitellar joint remains concentrically reduced. Assessment and Plan Assessment and plan (1) Inability to walk: Problem comment: - acute on chronic, c/w ataxia - ddx: vit B 12 deficiency, vit B1 deficiency (Wernicke syndrome), cerebellar dysfunction, etc. Unlikely folate deficiency, she has been on folate supplementation for years - MRI brain 11/18/24: no acute infarction or other acute intracranial pathology, mild chronic microvascular ischemic changes, mod generalized parenchymal volume loss - B12 600 on 12/29/24 - PT and OT following, SW assisting with discharge planning as well Status: Acute Total time spent: Total time spent is greater than 50% in coordination of care (as documented) at patient's floor/unit and/or counseling patient: (2) Alcohol use disorder: Problem comment: - has consumed 6 shots of cammy daily for the past 12-18 months, last drink 1100 12/29/24 - has suffered multiple falls in association with alcohol consumption including having sustained fractures in consequence of the same, most recently the right olecranon - committed to sobriety - on scheduled low dose Lorazepam and scheduled Gabapentin, received 1 dose of Phenobarbital 12/30/24 - continue to follow CIWA scores Status: Acute Total time spent: Total time spent is greater than 50% in coordination of care (as documented) at patient's floor/unit and/or counseling patient: (3) Closed fracture of right olecranon process: Problem comment: - Displaced olecranon fracture with posterior and superior displacement of the proximal fracture segment by approximately 2 centimeters, placed in splint on 12/28/2024 - current plan: surgical repair on 01/01/[address] Ovi Sage Status: Acute Total time spent: Total time spent is greater than 50% in coordination of care (as documented) at patient's floor/unit and/or counseling patient: (4) Tobacco use disorder: Problem comment: - smokes tobacco 1/2 pack per day for 60 years - nicotine patch 21 mg daily for now Status: Acute Total time spent: Total time spent is greater than 50% in coordination of care (as documented) at patient's floor/unit and/or counseling patient: (5) Cancer of left breast, stage 1, estrogen receptor positive: Problem comment: - Multifocal stage IA left breast cancer, ER positive, [place] positive, HER2 of 1+ IHC - working with Dr. Kay, Oncology, and presently being treated with anastrozole 1 mg daily Status: Acute Total time spent: Total time spent is greater than 50% in coordination of care (as documented) at patient's floor/unit and/or counseling patient: (6) Chronic rheumatic arthritis: Problem comment: - on Methotrexate M/T each week, holding 12/30/24 given upcoming surgery Status: Acute Total time spent: Total time spent is greater than 50% in coordination of care (as documented) at patient's floor/unit and/or counseling patient: Plan We again had a good discussion regarding her findings. At this time, I think it is too early to assess the skin as it is only been 4 days since I last saw her. The skin trauma was significant and needs time to let the swelling subside so that we can do the procedure and closed the skin minimize infection risk. Beyond that, she already has significant ecchymosis which would be a nidus for infection. This is difficult to overcome because we still need to address the fracture in a timely manner. Therefore, I will plan to reassess the skin on 01/01/2025. At that time, I would also expect that we could likely do ORIF of this right olecranon. Therefore, we discussed the risks, benefits, and alternatives to both the nonoperative and surgical route in good detail including both local risks (e.g. Infection, wound healing issues, irritation from the hardware, arthritis) and systemic risks (e.g. AR, VTE, stroke). I believe all questions were answered. Indeed she would anticipate plan for surgery on 01/01/2025. Until then, oral analgesics p.r.n.. Maintain this right upper extremity splint. Finger range of motion as tolerated.
--- NOTE | 2025-01-01 11:17 | PM.ORPN ---
Subjective Subjective Date Seen: 01/01/25 Interval history: She continues to do well from a pain standpoint. No fevers or chills. No numbness or tingling. I am here to assess the skin integrity today. She is otherwise ready for surgery, reportedly. Ortho Exam Narrative Exam Narrative: No acute distress. Right upper extremity acute skin shows significant ecchymosis around the posterior right elbow. Swelling has subsided allowing skin wrinkles not be present. Neurologically remains intact in the radial, ulnar, and median nerve distribution to sensory light touch and motor function. 2+ radial pulse. Remarkably, she is moving her right elbow without significant pain for small arc of motion. Const Vital Signs, click to edit/add: Vital Signs - 24 hr 12/31/24 11:37 12/31/24 15:28 12/31/24 15:33 Temperature 98.7 F 99.2 F Pulse Rate 99 Pulse Rate [Pulse Oximeter] 87 96 Respiratory Rate 18 16 Blood Pressure [Left Arm] 125/80 124/76 Pulse Oximetry 93 94 Oxygen Delivery Method Room Air Room Air 12/31/24 15:33 12/31/24 15:33 12/31/24 19:00 Temperature 99.2 F 97.2 F L Pulse Rate Pulse Rate [Pulse Oximeter] 96 82 Respiratory Rate 16 16 18 Blood Pressure [Left Arm] 124/76 116/83 Pulse Oximetry 94 94 93 Oxygen Delivery Method Room Air Room Air Room Air 12/31/24 23:00 12/31/24 23:00 12/31/24 23:00 Temperature 96.5 F L Pulse Rate 65 Pulse Rate [Pulse Oximeter] 62 62 Respiratory Rate 20 20 Blood Pressure [Left Arm] 122/82 Pulse Oximetry 94 Oxygen Delivery Method Room Air 12/31/24 23:00 01/01/25 03:00 01/01/25 07:18 Temperature 97.1 F L Pulse Rate 85 Pulse Rate [Pulse Oximeter] 73 Respiratory Rate 20 16 Blood Pressure [Left Arm] 131/81 Pulse Oximetry 94 93 Oxygen Delivery Method Room Air Room Air 01/01/25 07:48 01/01/25 07:48 Temperature 97.8 F Pulse Rate Pulse Rate [Pulse Oximeter] 88 Respiratory Rate 16 16 Blood Pressure [Left Arm] 130/86 Pulse Oximetry 94 94 Oxygen Delivery Method Room Air Room Air Assessment and Plan Assessment and plan (1) Tobacco use disorder: Problem details: - smokes tobacco 1/2 pack per day for 60 years - nicotine patch 21 mg daily for now Status: Acute (2) Alcohol use disorder: Problem details: - has consumed 6 shots of charline daily for the past 12-18 months, last drink 1100 12/29/24 - has suffered multiple falls in association with alcohol consumption including having sustained fractures in consequence of the same, most recently the right olecranon - committed to sobriety - on scheduled low dose Lorazepam and scheduled Gabapentin, received 1 dose of Phenobarbital 12/30/24 - continue to follow CIWA scores Status: Acute (3) Closed fracture of right olecranon process: Problem details: - Displaced olecranon fracture with posterior and superior displacement of the proximal fracture segment by approximately 2 centimeters, placed in splint on 12/28/2024 - current plan: surgical repair on 01/01/[address] Ovi Sage Status: Acute (4) Cancer of left breast, stage 1, estrogen receptor positive: Problem details: - Multifocal stage IA left breast cancer, ER positive, [place] positive, HER2 of 1+ IHC - working with Dr. Kay, Oncology, and presently being treated with anastrozole 1 mg daily Status: Acute Plan At this time, I do think her skin is ready for surgery. Therefore, we will plan for right olecranon ORIF today on 01/01/2025. Again reviewed the risks, benefits, and alternatives to surgery. Following the surgery, I do anticipate that she would be able to be discharged from the hospital whenever she is medically stable as this would typically be an outpatient procedure. She states understanding.
--- NOTE | 2025-01-01 11:27 | SUR.PREOP ---
1124: Patient to block room on med surg bed. Family at the bedside.
--- NOTE | 2025-01-01 11:42 | SUR.PREOP ---
TIME?OUT:?1144 PT/RN/MDA?VERIFICATION?OF?SURGICAL?SITE,?PROCEDURE,?AND?CONSENT OBTAINED?PRIOR?TO?INVASIVE?PROCEDURE.
[2025-01-01] MEDS: MIDAZOLAM HCL 1 MG/ML inj IVP (11:45)
[2025-01-01] MEDS: fentaNYL 100 MCG/2 ML inj IVP (11:45)
--- NOTE | 2025-01-01 11:48 | W.PM.NB ---
Nerve Block Nerve Block Time Seen by Provider: 11:47 Date Seen: 01/01/25 Type of block requested by surgeon for post-operative analgesia: supraclavicular Side: right Time out performed: Yes Verification of patient name: Yes Verification of date of : Yes Site marking: site marked Name of person performing procedure: Faisal Continuous monitoring Was continuous monitoring of O2 sat, B/P, patient monitor, recorded every 15 minutes?: Yes Procedure Checklist: sterile prep, needles and gloves Ultrasound guided. Images saved: Yes Medications given in 5ml increments after negative aspiration: Ropivicaine %: 0.5 mL: 20 Needle gauge: 22 Precedex (mcg): 25 Patient tolerated procedure well: Yes Block Charges Block Charge (with Pro Fee): Brachial Plexus Use of Ultrasound Machine for Block: Yes- US Guidance/pain block
--- NOTE | 2025-01-01 11:49 | W.ANESCHARGE ---
Anesthesia Charges Start Date/Time Anesthesia Start Date: 01/01/25 Anesthesia Start Time: 12:20 Stop Date/Time Anesthesia Stop Date: 01/01/25 Anesthesia Stop Time: 14:15 Summary Extremes of Age - Over 70 or under 1: MDA Coding CPT Codes CPT Codes: ANESTH UPPER ARM SURGERY - 17365 ([id number]) P3 - PATIENT W/SEVERE SYS DISEASE, QK - FRUIT GRADER 2-4 CNCRNT ANES PROC, QX - ANIMAL LABORATORY TECHNICIAN SVC W/ MD MED DIRECTION Additional Codes: Summary - Extremes of Age - Over 70 or under 1: MDA ([id number])
[2025-01-01] MEDS: CEFAZOLIN 2 GM in 0.9 % SODIUM CHLORIDE Mini-bag 100 ML IVPB (12:34)
--- NOTE | 2025-01-01 12:38 | SUR.PREOP ---
1200: Post block, patient stated she needed to void. Patient offered bedpan and ok to proceed. Patient unable to void, bedpan removed. Brief in place. Patient provided call light. Patient utilized call light to say she voided successfully. Brief changed.
[2025-01-01] MEDS: LACTATED RINGERS 1000 ML 1,000 ML 100 ML IV (13:47)
--- NOTE | 2025-01-01 14:17 | W.ANESCHARGE ---
Anesthesia Charges Start Date/Time Anesthesia Start Date: 01/01/25 Anesthesia Start Time: 12:20 Stop Date/Time Anesthesia Stop Date: 01/01/25 Anesthesia Stop Time: 14:15 Summary Extremes of Age - Over 70 or under 1: CAM SPECIALIST Coding CPT Codes CPT Codes: ANESTH UPPER ARM SURGERY - 97887 ([id number]) P3 - PATIENT W/SEVERE SYS DISEASE, QK - FIELD AGRONOMIST 2-4 CNCRNT ANES PROC, QX - CAM SPECIALIST SVC W/ MD MED DIRECTION Additional Codes: Summary - Extremes of Age - Over 70 or under 1: CAM SPECIALIST ([id number])
--- NOTE | 2025-01-01 15:25 | PM.ORPRC ---
Procedure Note Date of procedure: 01/01/25 Procedure: PREOPERATIVE DIAGNOSIS: 1. Right elbow olecranon fracture, intra-articular, acute, closed POSTOPERATIVE DIAGNOSIS: 1. Right elbow olecranon fracture, intra-articular, acute, closed PROCEDURE: 1. Right elbow olecranon fracture ORIF 2. [id number] - intraoperative fluoroscopy up to 1 hour. SURGEON: Ovi Sage MD. COSTUME TECHNICIAN: Leroy CRAVEN- Of note, a skilled medical assistant ob gyn was critical for this case to aid in patient positioning, tissue retraction, limb manipulation/positioning, and closure. ANESTHESIA: Regional block + MAC IMPLANTS: Acumed olecranon plate with 2.7 mm proximal locking screws and 3.5 mm distal nonlocking and locking screws. TOURNIQUET: 40 min at 225 torr COMPLICATIONS: None evident INDICATIONS: The patient is a pleasant 74-year-old female who sustained a right olecranon fracture while falling off the toilet approximately 1 week ago. This severe pain. Difficulty with elbow use. Presented [facility]. X-rays revealed a right olecranon fracture that was displaced and intra-articular. I saw her in clinic. Her soft tissues were very swollen and fragile and ecchymotic. As such, I recommended maintenance of splinting and follow up in 1 week. This now the proximal 1 week later. It is now ready for ORIF. Given the dysfunction without triceps power, surgery was recommended. DESCRIPTION OF PROCEDURE: Following a thorough discussion of risks, benefits, and alternatives consent was obtained and the operative elbow was marked. The patient was brought to the operating room and placed supine on the operating table. Induction of anesthesia was undertaken. She was then flipped to a prone position. 2 g IV Ancef was administered within 1 hr of incision preoperatively. Proper time-out was performed identifying proper patient, site, procedure. The operative extremity was prepped and draped in the appropriate sterile fashion using ChloraPrep after the patient was positioned supine with all bony prominences well padded. Following exsanguination of the operative extremity and tourniquet inflation, a longitudinal, posterior skin incision was made along the posterior border of the proximal ulna curving laterally around the olecranon tip, and again up a short distance on the distal triceps insertion. The hematoma was immediately encountered upon penetrating the subcutaneous layer. This was evacuated. Subperiosteal dissection was performed along the proximal ulna, allowing us to control the proximal fracture fragment. We turned our attention to the fracture site itself. Interposed hematoma and periosteum was debrided with a curette, elevator, and suction along with irrigation. At this point, the main fracture was reduced and held with a combination of the plate with pressure and a dental pick. The proximal 2.7 mm screw holes were 1st drilled, measured, and placed in a compression manner to allow the plate to oppose near the bone. We then used the oblong hole distally to allow some compression in line with the fracture. This was also a nonlocking screw. We then filled 2 more proximal holes that were locking and the distal holes that were also locking. Finally, we used the ?home-run screw? to again add security in a locking fashion in a divergent manner across the fracture site. C-arm fluoroscopic imaging was utilized throughout the case to aid in fracture reduction assessment, K-wire placement, and confirm metallic implants to be outside the joint. The elbow was placed through range of motion and the fracture was found to be stable. Closure was then performed after thorough irrigation with normal saline, utilizing 2-0 Stratafix for the subcutaneous, and 4-0 Stratafix for subcuticular closure. Dressings were applied, tourniquet deflated, and a posterior splint was applied. The patient was awoken from anesthesia and transferred to the PACU in stable condition. A skilled medical assistant ob gyn was critical for this case to aid in patient positioning, tissue retraction, limb manipulation/positioning, and closure. PLAN: 1. Nonweightbearing operative extremity. 2. Ice. 3. Elevate. 4. Oxycodone or other analgesics for pain p.r.n. 5. Follow up with PA visit in 1-2 weeks. Removal of splint, repeat clinical check. Then removed from splint and allow range of motion as tolerated. Avoid triceps activation. Initiate occupational therapy.
--- NOTE | 2025-01-01 16:48 | PC.SOCIAL ---
Discharge planning: bilingual patient support caseworker met with pt's sons Douglas and Ronny today while pt was in surgery. bilingual patient support caseworker updated them that [facility] is reviewing pt's referral and wanted to see updated progress notes from PT/OT and the doctor after surgery. bilingual patient support caseworker secure emailed Ava Dunlap at [facility] updated notes from pt's PT/OT sessions this morning and updated provider notes from the Hospitalist and the Orthopedic surgeon from today. bilingual patient support caseworker also left Ava Dunlap a voicemail letting her know that this worker was emailing and faxing her updated notes on the pt. Pt's sons stated that one of them should be able to give the pt a ride to the shelter facility she is accepted to when she is ready for discharge. Social work to follow-up as needed.
[2025-01-01] MEDS: ROSUVASTATIN CALCIUM 10 MG TABLET PO (18:26)
[2025-01-01] MEDS: CEFAZOLIN 1 GM in 0.9 % SODIUM CHLORIDE Mini-bag 100 ML IVPB (18:27)
[2025-01-01] MEDS: ENOXAPARIN 40 MG/0.4 ML INJ SUBCUT (22:05)
[2025-01-01] MEDS: clonazePAM 0.5 MG TABLET 1 MG PO (22:05)
[2025-01-01] MEDS: SENNOSIDES 1 TAB TABLET 2 TAB PO (22:05)
[2025-01-01] MEDS: NICOTINE 21 MG PATCH 1 PATCH TRANSDERMA (22:06)
[2025-01-01] MEDS: SODIUM CHLORIDE 0.9 % (FLUSH) 10 ML SYRINGE 5 ML IVF (22:07)
[2025-01-02 03:00] VITALS: BP 113/73; PULSE 86; RESP 16; TEMP 36.4; O2SAT 92
[2025-01-02] MEDS: CEFAZOLIN 1 GM in 0.9 % SODIUM CHLORIDE Mini-bag 100 ML IVPB (03:16)
--- NOTE | 2025-01-02 05:52 | PC.NURSE ---
End of shift report: Alert and oriented x 4. Patient denies any pain to right upper extremity. Right arm cast/splint intact and using right arm sling for immobilization. CMS intact to RUE, patient able to wiggle fingers, continues to report numbness from wrist up past elbow. RUE elevated on pillows throughout the night and ice pack applied as tolerated by patient. At 2040 patient had not voided since return from surgery. Bladder scan completed and found to have 999+ urine in bladder, patient attempted to void but was unsuccessful. Straight cath performed and 1750cc of clear, yellow urine removed from bladder. MD notified of bladder scan and straight cath, new orders received to bladder scan and straight cath for >300 cc. If patient requires more than [address] lloyd catheter. Bladder scan performed at 0300 and patient found to have 92cc, 72cc, and 69 cc at that time. Denies any lower abdominal pain or flank pain. Patient continues to deny urge or feel to void. Transfers with Ax 2 pivot transfer onto commode. CIWA 1, denies any signs or symptoms of withdrawal.
[2025-01-02] MEDS: ACETAMINOPHEN 325 MG TABLET 650 MG PO (06:23)
[2025-01-02] MEDS: LEVOTHYROXINE 88 MCG TABLET PO (06:23)
[2025-01-02] MEDS: MORPHINE 4 MG/ML INJ IVP (06:40)
[2025-01-02 07:05] LABS: Basophils Absolute Auto 0.02 K/uL (0.00-0.30); Basophils Percent Auto 0.2 % (0.0-3.0); Eosinophils Absolute Auto 0.06 K/uL (0.00-0.50); Eosinophils Percent Auto 0.7 % (0.0-7.0); Hematocrit 38.9 % (33.0-51.0); Hemoglobin* 13.2 gm/dL (12.0-16.0); Immature Granulocytes Abs Auto 0.04 K/uL (0.00-0.30); Immature Granulocytes Pct Auto 0.5 %; Lymphocytes Percent Auto 13.7 % (20-44); Mean Corpuscular HGB Conc 34 gm/dL (32-36); Mean Corpuscular Hemoglobin 36 pg (26-34); Mean Corpuscular Volume 105 fL (80-100); Monocytes Percent Auto 17.3 % (0.0-11.0); Neutrophils Absolute Auto 5.53 K/uL (1.7-7.0); Neutrophils Percent Auto 67.6 % (42.0-72.0); Platelet Count* 167 K/uL (140-440); White Blood Count* 8.19 K/uL (4.50-11.00)
[2025-01-02 07:13] VITALS: PULSE 77
[2025-01-02 07:13] LABS: Slide Review Reflex No
[2025-01-02 07:14] LABS: Chloride* 102 mmol/L (96-114)
[2025-01-02 07:15] LABS: Potassium* 3.6 mmol/L (3.6-5.1); Sodium* 133 mmol/L (135-149)
[2025-01-02 07:17] LABS: Creatinine* 0.5 mg/dL (0.5-1.5); Estimated Glomerular Filt Rate 98 ml/min
[2025-01-02 07:18] LABS: Anion Gap 5 mEq/L (7-15); Blood Urea Nitrogen* 10 mg/dL (7-30); Carbon Dioxide* 26 mmol/L (20-32); Glucose* 132 mg/dL (60-115)
[2025-01-02 07:56] VITALS: BP 111/68; PULSE 75; RESP 16; TEMP 37; O2SAT 92
[2025-01-02] MEDS: AMLODIPINE 5 MG TABLET PO (09:07)
[2025-01-02] MEDS: SENNOSIDES 1 TAB TABLET 2 TAB PO (09:07)
[2025-01-02] MEDS: HYDROXYCHLOROQUINE 200 MG TABLET PO (09:07)
[2025-01-02] MEDS: GABAPENTIN 300 MG CAPSULE PO (09:07)
[2025-01-02] MEDS: SODIUM CHLORIDE 0.9 % (FLUSH) 10 ML SYRINGE 5 ML IVF (09:07)
[2025-01-02] MEDS: ESCITALOPRAM 10 MG TABLET 20 MG PO (09:07)
[2025-01-02] MEDS: FOLIC ACID 1 MG TABLET PO (09:07)
[2025-01-02] MEDS: ASPIRIN 81 MG TABLET EC PO (09:07)
--- NOTE | 2025-01-02 12:48 | PM.DS1 ---
DS: Providers Provider Date Seen: 01/02/25 Date of admission: 12/30/24 15:36 Primary care physician: Sandra Barragan DO Admitting Clinician: Delmer Shetty MD Consults: PT, OT, Nutrition, SW, Orthopedic Surgery Attending Physician on discharge: Chantelle Crockett MD Date of Discharge: 01/02/25 DS: Diagnosis Discharge Diagnosis (1) Inability to walk: Status: Acute Problem details: - presented with acute on chronic ataxia, likely worsened by daily ETOH use - ddx: vit B 12 deficiency, vit B1 deficiency (Wernicke syndrome), cerebellar dysfunction, etc. Unlikely folate deficiency, on folate supplementation for years - MRI brain 11/18/24: no acute infarction or other acute intracranial pathology, mild chronic microvascular ischemic changes, mod generalized parenchymal volume loss - B12 600 on 12/29/24 - PT and OT following, SW assisting with discharge planning as well (2) Alcohol use disorder: Status: Acute Problem details: - has consumed 6 shots of charline daily for the past 12-18 months, last drink 1100 12/29/24 - has suffered multiple falls in association with alcohol consumption including having sustained fractures in consequence of the same, most recently the right olecranon - committed to sobriety - on scheduled low dose Lorazepam and scheduled Gabapentin, received 1 dose of Phenobarbital 12/30/24 - 01/01/25: CIWA scores low, stop scheduled Lorazepam, available prn - 01/02/25: has not required any Ativan in >24 hours, no need for additional Benzodiazepines upon d/c (3) Closed fracture of right olecranon process: Status: Acute Problem details: - Displaced olecranon fracture with posterior and superior displacement of the proximal fracture segment by approximately 2 centimeters, placed in splint on 12/28/2024 - Surgical repair on 01/01/[address] Ovi Sage (4) Tobacco use disorder: Status: Acute Problem details: - smokes tobacco 1/2 pack per day for 60 years - nicotine patch 21 mg daily for now (5) Cancer of left breast, stage 1, estrogen receptor positive: Status: Acute Problem details: - Multifocal stage IA left breast cancer, ER positive, [place] positive, HER2 of 1+ IHC - working with Dr. Kay, Oncology, and presently being treated with anastrozole 1 mg daily (6) Chronic rheumatic arthritis: Status: Acute Problem details: - on Methotrexate M/T each week, held the week of 12/30/24 given surgery DS: Summary Hospital Course Hospital Course: [facility] was admitted on 12/29/24 for worsening of chronic ataxia, recurrent falls, difficulty safely performing ADLs in the setting of recent R olecranon fracture. Known ETOH use disorder (daily drinking for >1 year, last drink 1100 12/29/24). Committed to sobriety at this time. Treated for symptoms of withdrawal with 1 dose of IV Phenobarbital + scheduled Gabapentin and Lorazepam. These were discontinued on 01/01/25 without any recurrent withdrawal symptoms. s/p Right elbow olecranon fracture ORIF with Dr. Sage on 01/01/25. Noted to have postoperative urinary retention requiring straight catheterization, was able to urinate spontaneously on POD 1. Patient medically appropriate for discharge to SNF on 01/02/2025, follow-up scheduled with Orthopedic surgery and will see PCP following SNF stay. Status at Discharge Functional status at discharge: uses cane/walker Overall status at discharge: patient is progressing back to baseline Time Spent with Patient Time attestation: Total time spent providing and/or coordinating discharge services: Time spent: Greater than 30 minutes Specific discharge activities: Multidisciplinary team collaboration, updates to patient and family, medication reconciliation Exam Narrative: Exam Narrative: GEN: Alert and oriented, nontoxic HEENT: EOMIs bilaterally, no scleral icterus CV: RRR, No concerning murmurs R: LCTA bilaterally without concerning wheezing, rales, or rhonchi Ext: Right upper extremity is splinted + sling, normal range of motion, sensation, and capillary refill of right fingers Skin: No concerning skin lesions or rashes on exposed skin Neuro: No focal deficits Psych: Appropriate Const: Vital Signs, click to edit/add: Vital Signs - 24 hr 01/01/25 14:10 01/01/25 14:15 01/01/25 14:20 Temperature 97.6 F Pulse Rate 70 69 68 Pulse Rate [Pulse Oximeter] Respiratory Rate 18 18 16 Blood Pressure 149/92 H 147/89 H 141/86 H Blood Pressure [Le ft Arm] Pulse Oximetry 92 89 92 Oxygen Delivery Me thod Room Air Nasal Cannula Nasal Cannula Oxygen Flow Rate 3 3 01/01/25 14:25 01/01/25 14:30 01/01/25 14:35 Temperature 98.0 F Pulse Rate 66 67 65 Pulse Rate [Pulse Oximeter] Respiratory Rate 18 17 16 Blood Pressure 145/86 H 141/85 H 130/83 Blood Pressure [Le ft Arm] Pulse Oximetry 95 95 95 Oxygen Delivery Me thod Nasal Cannula Nasal Cannula Nasal Cannula Oxygen Flow Rate 3 3 3 01/01/25 14:40 01/01/25 14:50 01/01/25 14:50 Temperature 98.1 F 96.8 F L Pulse Rate 66 72 Pulse Rate [Pulse Oximeter] Respiratory Rate 16 16 16 Blood Pressure 134/78 129/83 Blood Pressure [Le ft Arm] Pulse Oximetry 93 91 91 Oxygen Delivery Me thod Nasal Cannula Nasal Cannula Nasal Cannula Oxygen Flow Rate 3 1 1 01/01/25 15:00 01/01/25 15:15 01/01/25 15:30 Temperature 96.9 F L Pulse Rate 70 69 67 Pulse Rate [Pulse Oximeter] Respiratory Rate 16 16 16 Blood Pressure 125/86 132/82 127/82 Blood Pressure [Le ft Arm] Pulse Oximetry 92 91 91 Oxygen Delivery Me thod Nasal Cannula Nasal Cannula Nasal Cannula Oxygen Flow Rate 1 1 1 01/01/25 15:45 01/01/25 16:00 01/01/25 16:09 Temperature 97.0 F L Pulse Rate 69 66 70 Pulse Rate [Pulse Oximeter] Respiratory Rate 16 16 Blood Pressure 128/80 130/81 Blood Pressure [Le ft Arm] Pulse Oximetry 92 93 Oxygen Delivery Me thod Nasal Cannula Nasal Cannula Oxygen Flow Rate 1 1 01/01/25 16:30 01/01/25 17:00 01/01/25 18:00 Temperature 97.3 F L 97.1 F L Pulse Rate 68 69 72 Pulse Rate [Pulse Oximeter] Respiratory Rate 16 16 18 Blood Pressure 140/84 H 134/77 138/89 Blood Pressure [Le ft Arm] Pulse Oximetry 91 92 92 Oxygen Delivery Me thod Nasal Cannula Nasal Cannula Room Air Oxygen Flow Rate 1 1 01/01/25 19:00 01/01/25 23:00 01/01/25 23:00 Temperature 97.5 F L 97.6 F Pulse Rate 78 Pulse Rate [Pulse Oximeter] 69 81 Respiratory Rate 18 18 Blood Pressure Blood Pressure [Le ft Arm] 109/75 117/75 Pulse Oximetry 92 92 Oxygen Delivery Me thod Room Air Room Air Oxygen Flow Rate 01/01/25 23:00 01/01/25 23:00 01/02/25 03:00 Temperature 97.6 F Pulse Rate Pulse Rate [Pulse Oximeter] 69 86 Respiratory Rate 18 18 16 Blood Pressure Blood Pressure [Le ft Arm] 113/73 Pulse Oximetry 92 92 Oxygen Delivery Me thod Room Air Room Air Oxygen Flow Rate 01/02/25 07:13 01/02/25 07:56 01/02/25 07:56 Temperature 98.6 F Pulse Rate 77 Pulse Rate [Pulse Oximeter] 75 Respiratory Rate 16 16 Blood Pressure Blood Pressure [Le ft Arm] 111/68 Pulse Oximetry 92 92 Oxygen Delivery Me thod Room Air Room Air Oxygen Flow Rate DS: Data Data Completed and Pending Labs on day of discharge: Labs from last 24 hours 01/02/25 06:42 WBC 8.19 RBC 3.70 L Hgb 13.2 Hct 38.9 MCV 105 H MCH 36 H MCHC 34 RDW Coeff of Kathya 15.0 Plt Count 167 Neut % (Auto) 67.6 Lymph % (Auto) 13.7 L [place] % (Auto) 17.3 H Eos % (Auto) 0.7 Baso % (Auto) 0.2 Neut # (Auto) 5.53 Lymph # (Auto) 1.10 [place] # (Auto) 1.40 H Eos # (Auto) 0.06 Baso # (Auto) 0.02 Abs Immat Gran (auto) 0.04 Imm/Tot Granulo (auto) 0.5 Sodium 133 L Potassium 3.6 Chloride 102 Carbon Dioxide 26 Anion Gap 5 L BUN 10 Creatinine 0.5 Estimated Creat Clear 45.50 Estimated GFR 98 Glucose 132 H Calcium 9.0 Discharge Plan Discharge Disposition: Xfer [facility] Date of Admission: 12/30/24 15:36 Attending Provider on Discharge: Chantelle Crockett Primary Care Provider: Sandra Barragan Condition: Stable Anticipated Discharge Date/Time: 01/02/25 10:31 Discharge Medications: New sennosides [Senna Lax] 8.6 mg Tablet 8.6 mg PO BID Qty: 60 0RF acetaminophen 325 mg Tablet 975 mg PO Q8H PRNQty: 60 0RF nicotine 21 mg/24 hr Patch 24 Hour 1 patch transdermal Q24H Qty: 28 0RF oxycodone 5 mg Tablet 5 mg PO Q4H PRNQty: 20 0RF Continued fluticasone furoate-vilanterol [Breo Ellipta] 100-25 mcg/dose blister with device 1 inh inhalation QDAY Patient Comments: unknown dose levothyroxine 88 mcg tablet 88 mcg PO QAM methotrexate sodium 2.5 mg tablet 10 mg PO 2XW hydroxychloroquine 200 mg tablet 200 mg PO DAILY rosuvastatin 10 mg tablet 10 mg PO QPM cholecalciferol (vitamin D3) 25 mcg (1,000 unit) capsule 1,000 unit PO DAILY albuterol sulfate 2.5 mg /3 mL (0.083 %) solution for nebulization 2.5 mg inhalation Q6-8H PRN amlodipine [Norvasc] 5 mg tablet 5 mg PO DAILY aspirin [Ecotrin Low Strength] 81 mg tablet,delayed release (DR/EC) 81 mg PO DAILY clonazepam 0.5 mg tablet 1 mg PO HS Patient Comments: TAKE TWO TABLETS BY MOUTH EVERY EVENING AT BEDTIME escitalopram oxalate 20 mg tablet 20 mg PO DAILY Patient Comments: TAKE ONE TABLET BY MOUTH EVERY MORNING folic acid 1 mg tablet 1 mg PO DAILY Patient Comments: TAKE 1 TABLET (1 MG) BY MOUTH ONCE DAILY anastrozole 1 mg tablet 1 mg PO DAILY Discontinued Tylenol Discharge Orders: Discharge Order (Routine); Ordered 01/02/25 Ordered By: René Gallardo Additional Instructions: See Dr. Barragan after your rehab stay for a f/u appointment. Activity Level: No Restrictions Activity Detail: No weight bearing right upper extremity. Keep splint on until ortho follow-up in [place] in 1-2 weeks. Move fingers frequently throughout the day. Elevate arm above heart if fingers become swollen. Discharge Diet: Regular Follow Up Appointments: Sandra Barragan DO [Primary Care Provider] - René Gallardo PA-C [Physician Pin Ball Machine Mechanic] - (10-14 days, postop appt with Shikha) Forms: [facility] Info Instructions Admit to: SNF Discharge Potential: Good Length of Stay: 30-90 days Code Status: DNR/DNI TEDs: Bilateral Knee Rehab Potential: Good Therapy: Physical Therapy and Occupational Therapy Therapy Orders: Evaluate and Treat and Gait Training Therapy Orders Additional Information: recent R elbow surgery Oxygen: No Urinary Catheter: No Orders are good >30 days: Yes Signature: Chantelle Crockett MD
--- NOTE | 2025-01-02 13:44 | PC.SOCIAL ---
Discharge planning: Pt was accepted to [facility] for admission today for short-term rehab. Pt will be in a private room, but will have to pay an extra $55.00 a day(pt's insurance will not cover the extra cost for a private room) which the pt said she was fine with paying because she really wanted to have a private room. There is no prior authorization requirement with pt's insurance as pt's insurance is waving prior authorizations right now. Discharge orders were faxed to Rosemary at [place] at fax #[phone]. Pre-admission screening was completed and the confirmation number was also faxed to Rosemary at [place]. [id number]. quality worker provided pt with copy of The Important Message from Medicare form and explained the hospital discharge appeal process with Medicare. Pt has no plans to appeal her discharge and is pleased that she is going to [facility]. Pt's son will transport her to [place]. Social Work to follow-up as needed.
== END 2025-01-02 13:32 | DRG 511 ==
LOC: ED 20:16 → MEDSURG 21:12
PROVIDERS: Family Medicine; Orthopaedic Surgery Sports Medicine; Admitting Provider Internal Medicine; Emergency Provider Family Medicine; PCP Family Medicine; Visit Provider Internal Medicine
PROC: 0PSK04Z Reposition Right Ulna with Internal Fixation Device, Open Approach (ICD-10-PCS; principal; 2025-01-01 12:30)
DX: S52.031A Displaced fracture of olecranon process with intraarticular extension of right ulna, initial encounter for closed fracture (principal); F10.239 Alcohol dependence with withdrawal, unspecified; R27.8 Other lack of coordination; G89.18 Other acute postprocedural pain; W18.11XA Fall from or off toilet without subsequent striking against object, initial encounter; Y92.002 Bathroom of unspecified non-institutional (private) residence as the place of occurrence of the external cause; M06.9 Rheumatoid arthritis, unspecified; G89.29 Other chronic pain; I10 Essential (primary) hypertension; F43.21 Adjustment disorder with depressed mood; M79.7 Fibromyalgia; F17.210 Nicotine dependence, cigarettes, uncomplicated; C50.912 Malignant neoplasm of unspecified site of left female breast; Z17.0 Estrogen receptor positive status [ER+]; Z17.21 Progesterone receptor positive status; M54.50 Low back pain, unspecified; Z79.631 Long term (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 antimetabolite agent; Z79.82 Long term (current) use of aspirin; Z96.641 Presence of right artificial hip joint; Z96.642 Presence of left artificial hip joint; M54.16 Radiculopathy, lumbar region; M51.369 Other intervertebral disc degeneration, lumbar region without mention of lumbar back pain or lower extremity pain; W01.0XXA Fall on same level from slipping, tripping and stumbling without subsequent striking against object, initial encounter; Y92.015 Private garage of single-family (private) house as the place of occurrence of the external cause
CPT/HCPCS: 01740; 36415; 51702; 51798; 64415; 73070; 76000; 76942; 80048; 80053; 80076; 81001; 82077; 82150; 82607; 83540; 83550; 83605; 83735; 84100; 84484; 85025; 85027; 87086; 87631; 93005; 94761; 97110; 97116; 97161; 97166; 97530; 97535; 99100; 99284; 99285; A9270; C1713; G0378; J0690; J1650; J1885; J2250; J2270; J2371; J2405; J2560; J2704; J2710; J2795; J3010; J3480; J7030; J7120; S4990

== ENCOUNTER 2025-02-25 11:15 | Outpatient (RCR) | payer MEDICARE, SELFPAY ==
--- NOTE | 2025-01-23 11:47 | OT.OPOE ---
OT Outpatient Ortho Eval OT Outpatient Ortho Eval* Start: 01/20/25 09:48 Freq: Status: Active Protocol: Document 01/20/25 09:50 NATASHA (Rec: 01/20/25 14:08 NATASHA [id number]) E-signed By Oanh Lee, OTR/L, CLT OT OP Ortho Eval Details Complexity Complexity Medium Insurance Information Insurance Information Medicare B Other Insurance [facility] Insurance Information Comments *Patient will follow-up in [address] Sage for clinical recheck, repeat three views right elbow. (scheduled for 02/21/25) Outpatient History/Precautions Current Condition/Medical Diagnosis Referring Provider René Gallardo PA-C Medical Diagnoses Hx of open reduction and internal fixation (ORIF) procedure Z98.890 Other specified postprocedural states, s/p right elbow olecranon fracture ORIF (01/01/25) Treatment Diagnosis Pain in R elbow, M25.521 Stiffness in R elbow, M25.621 Localized edema, R60.0 (R elbow) Date of Onset 01/01/25 Other Precautions Allergies: dexamethasone, lidocaine, neomycin, polymyxin B, Sulfa (Sulfonamide Antibiotics), varenicline, [ tegaderm] SOPHY encouraged patient to wear the sling with activities, but to come out very frequently to exercise elbow motion. She should actively move the elbow, but avoid full triceps extension especially against resistance. Thus, she should not use her right arm to assist with walker use. Free range of motion digits, hand, wrist. Strongly suggest continuing smoking cessation, eventually start to wean from nicotine patch as well as tolerated. We understand that both of these will impair bone healing. May consider oral acetaminophen as needed for pain, rest, modify activities, elevate affected extremity above the heart level, and ice 20 min on/20 minutes off repeat as needed for pain/swelling. Again, continue elbow motion. Other Conditions Medications: acetaminophen 975 mg (3 x 325 mg) PO Q8H PRN albuterol sulfate 2.5 mg inhalation Q6-8H PRN amlodipine (Norvasc) 5 mg PO DAILY anastrozole 1 mg PO DAILY aspirin (Ecotrin Low Strength) 81 mg PO DAILY cholecalciferol (vitamin D3) 1 ,000 units PO DAILY clonazepam 1 mg PO HS escitalopram oxalate 20 mg PO DAILY fluticasone furoate-vilanterol 100-25 mcg/dose (Breo Ellipta ) 1 inh inhalation QDAY folic acid 1 mg PO DAILY hydroxychloroquine 200 mg PO DAILY levothyroxine 88 mcg PO QAM methotrexate sodium 10 mg PO 2XW nicotine 1 patch transdermal Q24H rosuvastatin 10 mg PO QPM Medical/Functional History Medical History Reviewed Yes Prior Level of Function/Mobility Patient lives alone, in a home in [place]. 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 At baseline, she uses a 4WW in the house and a 3WW when outside of the house because it is easier to transport in and out of her vehicle. PMH includes but is not limited to: History of open reduction and internal fixation (ORIF) procedure (Acute 01/01/25) 2 weeks postop right elbow olecranon fracture ORIF (2024, Dr. Sage) Z98.890 - Other specified postprocedural states (ICD-10) Tobacco use disorder (06/28/07 ) F17.200 - Nicotine dependence, unspecified, uncomplicated (ICD-10) Fibromyalgia (07/22/08) M79.7 - Fibromyalgia (ICD-10) Controlled substance agreement signed (01/09/14) Chronic low back pain () M54.50 - Low back pain, unspecified (ICD-10) G89.29 - Other chronic pain (ICD-10) Vertebral artery stenosis () I65.09 - Occlusion and stenosis of unspecified vertebral artery (ICD-10) V-tach (07/08/24) I47.20 - Ventricular tachycardia, unspecified (ICD-10) Unspecified essential hypertension (06/28/07) I10 - Essential (primary) hypertension (ICD-10) Thyroid nodule (12/19/08) E04. 1 - Nontoxic single thyroid nodule (ICD-10) Restless legs syndrome (RLS) ( 03/01/07) G25.81 - Restless legs syndrome (ICD-10) Pseudophakia, right eye (08/08) Z96.1 - Presence of intraocular lens (ICD-10) Nummular eczema (03/24/09) L30 .0 - Nummular dermatitis (ICD- 10) Nuclear senile cataract of left eye (03/31/15) H25.12 - Age-related nuclear cataract, left eye (ICD-10) Hyperopia of both eyes with astigmatism and presbyopia () H52.03 - Hypermetropia , bilateral (ICD-10) H52.203 - Unspecified astigmatism, bilateral (ICD-10 ) H52.4 - Presbyopia (ICD-10) Hyperlipidemia (07/11/22) E78. 5 - Hyperlipidemia, unspecified (ICD-10) Degenerative disc disease, lumbar (09/26/10) M51.369 - Other intervertebral disc degeneration, lumbar region without mention of lumbar back pain or lower extremity pain (ICD-10) Benign neoplasm of colon (10/26) D12.6 - Benign neoplasm of colon, unspecified (ICD-10 ) Osteopenia M85.80 - Other specified disorders of bone density and structure, unspecified site (ICD-10) Cancer of left breast, stage 1 , estrogen receptor positive C50.912 - Malignant neoplasm of unspecified site of left female breast (ICD-10) Z17.0 - Estrogen receptor positive status [ER+] (ICD-10) Fibromyalgia M79.7 - Fibromyalgia (ICD-10) Hypertension I10 - Essential ( primary) hypertension (ICD-10) Controlled substance agreement signed Z79.899 - Other buttermaker continuous churn (current) drug therapy ( ICD-10) Chronic rheumatic arthritis M06.9 - Rheumatoid arthritis, unspecified (ICD-10) Chronic low back pain M54.50 - Low back pain, unspecified ( ICD-10) G89.29 - Other chronic pain ( ICD-10) Adjustment disorder with depressed mood F43.21 - Adjustment disorder with depressed mood (ICD-10) Social History Employment Status Retired Other Critical Job Demands Lives alone, indep with self cares/IADLs Hobbies Flower gardening and reading Ortho Subjective Subjective Subjective Patient had her 2 week postop apt on 01/14/25 following her right elbow olecranon fracture ORIF (01/01/2025, by Dr. Sage). She was at a rehab facility in [place], following her surgery and discharged 01/16/2025 . She has returned to her home in [place] (living alone). Today was her first day driving and she states that she felt safe operating her vehicle. Denies any numbness or tingling distally. She has not been smoking cigarettes for the last few weeks, using nicotine patch. Of note, patient has a significant history of repeated/multiple falls and a mild/slight resting hand tremor that can not be explained from reading PMH. Pain Assessment Pain Pain Yes Pain Comments 12/30 (one tender spot at the lateral R elbow): hurts more at night Range of Motion and Strength Elbow/Forearm Range of Motion and Strength Elbow/Forearm Range of Motion and Right elbow: Strength Splint in good condition Wound covered by bandage; wound looks healthy, healing well without drainage, erythema, or significant swelling. Goniometric Comments Goniometric Comments Goniometric Comments Right Elbow: R Elbow AROM 35-95 Pronation FULL Supination 64 degrees Patient is able to make a full fist, there is no swelling in the R wrist/hand Hand Pinch/Forensic Audit Expert Strength Hand Pinch/Forensic Audit Expert Strength Hand Pinch/Forensic Audit Expert Strength Left Hand,Right Hand Left Hand Forensic Audit Expert Strength Position 1 in Elbow 37 Flexion (lbs) Forensic Audit Expert Strength Position 2 in Elbow 41 Extension (lbs) Lateral Pinch Strength (lbs) 7 Three Point Pinch (lbs) 9 Tip Pinch Strength (lbs) 7 Right Hand Forensic Audit Expert Strength Position 1 in Elbow 25 Flexion (lbs) Forensic Audit Expert Strength Position 2 in Elbow 22 Extension (lbs) Lateral Pinch Strength (lbs) 7 Three Point Pinch (lbs) 5 Tip Pinch Strength (lbs) 5 OT Objective Data Skin/Wounds/Edema Comments Right Elbow: 2+ radial pulse, pink warm digits with brisk cap refill; intact dermatomes and myotomes distally including the radial , ulnar, and median nerve distributions Additional Information Objective Additional Information QUICK DASH: 37 points OT Problems Problems Problems Decreased Strength,Decreased Range of Motion,Pain,Lifting, Gripping,Pinching Problems Comments Difficulty with ADLs: dressing , undressing, showering, toileting (hygiene, wiping); IADLs: laundry, hanging up clothing's, cooking and cleaning. Reports eating mostly microwave meals. Had a short discussion on optimal nutrition for bone healing post surgery. Other Problems Writing,Opening Containers, Dressing,Computer,Sleeping Patient Potential Good Assessment Assessment Assessment 74 year old female patient had her 2 week postop apt on 01/14 following her right elbow olecranon fracture ORIF (2024, by Dr. Sage)-Date of Injury 12/24/24 s/p fall at home (transverse olecranon intra-articular fracture with proximal migration/ displacement of the fragment from the triceps pull). She was at a rehab facility in [place], following her surgery and discharged 01/16/2025. She has returned to her home in [place] (living alone) without issues. Today was her first day driving and she states that she felt safe operating her vehicle. Denies any numbness or tingling distally. She has not been smoking cigarettes for the last few weeks, using nicotine patch. Skilled OT to address the following deficits: difficulty with fine motor/ coordination skills (zippers/ buttons/hooking bra strap); loss of AROM in the R dominant UE impacting all ADLs and IADLs; loss of strength in the R dominant UE impacting all ADLs and IADLs as well as a loss of normal muscle tone and muscle endurance. Patient was pleasant, alert, orientated, asked great questions in session, was an active listener to information presented and showed signs of motivation/willingness to follow the presented Post-op protocol for R elbow ORIF instructions & HEP. Next apt is 1 week from today, January 27. Occupational Therapy Treatment Plan - OP Potential Rehabilitation Potential Good Barriers Barriers to goal attainment Currently using nicotine patches (former smoker) - healing time will be longer Hx of repeated/multiple falls -encouraging patient to work with PT on a gait/balance program. Set Goals Goals Set with Patient Yes Goals Goals 1. Through active participation in skilled OT sessions, patient will maximize post-surgical wound healing to prevent infection, minimize functional/cosmetic sequelae of scarring of the R elbow. 2. In 4 weeks, pt will demonstrate: 1) Decreased pain to <2/10 80% of the time with sustained gripping & carrying tasks (ex: holding a coffee cup, carrying in groceries in the house, holding open a book ). 3. Patient will advance R forearm supination to >70 degrees active motion in order to return to all IADLs without discomfort. 4. Patient will be discharged from therapy once she has achieved >90% of normal AROM ( on EVAL-01/20/25: R Elbow AROM 35-95) and strength in the effected R limb. 5. Patient will improve score on the Quick Dash as evident by having a score less than 30 points prior to D/C from skilled therapy in order to show less impairment in the effected dominant UE. Score on Eval 37 points Target Date 8 weeks Treatment Plan Treatment Plan Evaluation,Edema Control,Joint Mobilization,Manual Therapy, Wound Care/Scar Management, Therapeutic Exercise, Therapeutic Activities,Self Care/Home Management,Education Expected Frequency 1x Week Expected Duration 8-10 Weeks Home Program Home Program Home Program Initiated Home Program Specifics Access Code: [email or web address] URL: [email or web address] Date: 01/20/2025 Prepared by: Oanh Lee Exercises - Seated Scapular Retraction - 1 x daily - 7 x weekly - 3 sets - 10 reps - Seated Shoulder Flexion Towel Slide at Table Top - 1 x daily - 7 x weekly - 3 sets - 10 reps - Shoulder Flexion Wall Slide with Towel - 1 x daily - 7 x weekly - 3 sets - 10 reps - Shoulder Abduction - Palms Down - 1 x daily - 7 x weekly - 3 sets - 10 reps - Supine Shoulder Press AAROM in Abduction with Dowel - 1 x daily - 7 x weekly - 3 sets - 10 reps - Supine Shoulder Flexion Extension AAROM with Dowel - 1 x daily - 7 x weekly - 3 sets - 10 reps - Seated Elbow Flexion and Extension AROM - 1 x daily - 7 x weekly - 3 sets - 10 reps - Seated Forearm Pronation and Supination AROM - 1 x daily - 7 x weekly - 3 sets - 10 reps - Forearm AAROM Supination and Pronation with Ball - 1 x daily - 7 x weekly - 3 sets - 10 reps Certification Certification Statement I Certify That: Therapy Services Provided, Therapy Plan Established, Therapy Plan Reviewed Certification Information Clinic ID # [id number] Initial Certification Date 01/20/25 Recertification Due Date 04/20/25 Provider Signature Required Yes Provider Signature Shows Agreement With POC & Medical Necessity Physician NPI Number Write NPI# Here Physician Comment/Change Comment or Changes Physician Signature & Date Requested Please Sign/Date Here
== END 2025-06-25 23:59 | disposition home or self-care (01) ==
PROVIDERS: PCP Family Medicine; Visit Provider Physician Assistant Surgical
DX: Z48.89 Encounter for other specified surgical aftercare (principal); H81.8X9 Other disorders of vestibular function, unspecified ear; M25.521 Pain in right elbow; Z51.89 Encounter for other specified aftercare
CPT/HCPCS: 97110; 97140; 97166; X5282

== ENCOUNTER 2025-05-15 10:13 | Outpatient (RCR) | payer MEDICARE, SELFPAY | END 2025-11-11 23:59 | disposition home or self-care (01) | LOC: CCIC 10:13 | PROVIDERS: PCP Family Medicine; Visit Provider Physician Assistant | DX: C50.912 Malignant neoplasm of unspecified site of left female breast (principal); Z17.0 Estrogen receptor positive status [ER+]; M85.80 Other specified disorders of bone density and structure, unspecified site; Z79.811 Long term (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 aromatase inhibitors; Z72.0 Tobacco use | CPT/HCPCS: 99214; G0463 ==

== ENCOUNTER 2025-05-22 08:57 | Outpatient (CLI) | payer MEDICARE, SELFPAY ==
--- NOTE | 2025-05-22 09:45 | CRLHL7_ITS ---
For Patients: As a result of the Cures Act, medical imaging exams and procedure reports are released immediately into your electronic medical record. You may view this report before your referring provider. If you have questions, please contact your health care provider. DIGITAL DIAGNOSTIC LEFT MAMMOGRAM USING TOMOSYNTHESIS LEFT BREAST ULTRASOUND CLINICAL HISTORY: LEFT breast mass/asymmetry. COMPARISON: 05/07/2025, 07/09/2024. TECHNIQUE: Digital LEFT mammogram in two projections. Tomosynthesis was used in this interpretation. Real-time ultrasound imaging of LEFT breast with imaging documentation. BREAST COMPOSITION: There are scattered areas of fibroglandular density. FINDINGS: 3D spot compression CC/MLO LEFT breast mammogram images submitted. Persistent nodular density is present in the upper inner quadrant without architectural distortion. Multiple surgical clips are present. No suspicious calcifications. Targeted LEFT breast ultrasound performed at 11 o`clock 6 cm from the nipple. In this location, there is an ovoid area of heterogeneous tissue measuring 1.9 x 1.0 x 1.8 cm. IMPRESSION: Indeterminate focal ovoid area heterogeneous tissue LEFT breast 11 o`clock 6 cm from the nipple measuring 1.9 x 1.0 x 1.8 cm, possible scar tissue. RECOMMENDATIONS: Ultrasound-guided core needle biopsy. A lay language report of this examination will be provided to the patient. BI-RADS Category 4: Suspicious Dictated by Gordon Torres MD @ 05/26/2025 10:54:05 AM jj/Dictated by: Gordon Torres MD @ 05/26/2025 10:54:00 AM (Electronically Signed)
--- NOTE | 2025-05-22 10:15 | CRLHL7_ITS ---
For Patients: As a result of the Century Cures Act, medical imaging exams and procedure reports are released immediately into your electronic medical record. You may view this report before your referring provider. If you have questions, please contact your health care provider. PLEASE SEE LEFT BREAST DIAGNOSTIC MAMMOGRAM PERFORMED SAME DAY. CRL:sp SP/Dictated by: Gordon Torres MD @ 05/22/2025 11:12:00 AM (Electronically Signed)
== END 2025-05-22 08:58 | disposition home or self-care (01) ==
LOC: MAMMO 08:57
PROVIDERS: PCP Family Medicine; Visit Provider Physician Assistant
DX: N63.20 Unspecified lump in the left breast, unspecified quadrant (principal); R92.8 Other abnormal and inconclusive findings on diagnostic imaging of breast
CPT/HCPCS: 76642; 77065; G0279

== ENCOUNTER 2025-05-27 09:56 | Outpatient (CLI) | payer MEDICARE, SELFPAY ==
--- NOTE | 2025-05-27 10:15 | CRLHL7_ITS ---
For Patients: As a result of the Century Cures Act, medical imaging exams and procedure reports are released immediately into your electronic medical record. You may view this report before your referring provider. If you have questions, please contact your health care provider. ULTRASOUND-GUIDED BREAST BIOPSY AND POST-BIOPSY DIGITAL MAMMOGRAM FOR BIOPSY MARKER PLACEMENT CLINICAL HISTORY: Indeterminate nodule. COMPARISON STUDIES: 05/22/2025. TECHNIQUE: Real-time ultrasound with image documentation was used for targeting the breast lesion. Core biopsy specimens were obtained using an automated gun with an 18-gauge biopsy needle. Post-biopsy CC and ML digital mammograms were obtained to document position of the biopsy marker. CONSENT and TIME OUT: The procedure, risks, and alternatives were explained to the patient and a consent was signed. [place] Protocol was followed including pre-procedure verification that relevant information/documentation was available, reviewed and properly matched to the patient; consent accurate and complete; and equipment and supplies available. Time Out was conducted just prior to starting procedure to verify the four required elements: patient identity, correct side/site marked (if applicable), procedure, relevant images/results properly labeled and displayed (if applicable). PROCEDURE: The patient was positioned supine on the ultrasound table. The breast was prepped with ChloraPrep. 8 cc of 1 percent lidocaine used for local anesthesia. Core samples were obtained. A sterile metal biopsy clip was placed percutaneously to sven the lesion position within the breast. The specimens were placed in 10% formalin and sent to the pathology department. Pressure was held on the biopsy site until all bleeding subsided. The skin incision was closed with Steri-Strips. An ice pack was positioned over the biopsy site. Post-biopsy instructions were reviewed with the patient, and a written copy was given to her. LATERALITY: LEFT breast. LESION: Solid heterogeneous structure measures 1.9 x 1.0 x 1.8 cm at 11 o`clock 6 cm from the nipple. SUSPICION FOR MALIGNANCY: Low. NUMBER OF SAMPLES: 5. BIOPSY CLIP SHAPE: Oval. PROXIMITY OF CLIP TO TARGET: Within the lesion. IMPRESSION: Ultrasound-guided breast biopsy. When the pathology report is available, an addendum to this report will be made. ACR not applicable Dictated by Gordon Torres MD @ 05/27/2025 11:39:56 AM /sp SP/Dictated by: Gordon Torres MD @ 05/27/2025 11:39:00 AM (Electronically Signed)
--- NOTE | 2025-05-27 11:00 | CRLHL7_ITS ---
For Patients: As a result of the Century Cures Act, medical imaging exams and procedure reports are released immediately into your electronic medical record. You may view this report before your referring provider. If you have questions, please contact your health care provider. PLEASE SEE LEFT BREAST ULTRASOUND-GUIDED BIOPSY OF SAME DAY. CRL:sp SP/Dictated by: Gordon Torres MD @ 05/27/2025 11:37:00 AM (Electronically Signed)
== END 2025-05-27 09:57 | disposition home or self-care (01) ==
LOC: US 09:56
PROVIDERS: PCP Family Medicine; Visit Provider Physician Assistant
DX: N63.20 Unspecified lump in the left breast, unspecified quadrant (principal); R92.8 Other abnormal and inconclusive findings on diagnostic imaging of breast
CPT/HCPCS: 19083; 77065; 88305; A4648; A4649

== ENCOUNTER 2025-05-28 11:15 | Outpatient (RCR) | payer MEDICARE, SELFPAY | END 2025-08-26 14:24 | disposition home or self-care (01) | PROVIDERS: PCP Family Medicine; Visit Provider Family Medicine | DX: H81.8X9 Other disorders of vestibular function, unspecified ear (principal); Z51.89 Encounter for other specified aftercare | CPT/HCPCS: 97110; 97112; 97116; 97161; 97530 ==